=== PATIENT | male | born 1950 | race Asian ===

== ENCOUNTER 2017-10-18 20:20 | Inpatient (IN) ==
[2017-10-18] MEDS ORDERED: Magnesium Sulfate Inj 2 GM in Sodium Chlor 0.9% Inj 96 ML IV.SIG ONE (20:30)
--- NOTE | 2017-10-18 20:40 | ED ---
HPI General Chief Complaint: Shortness of Breath/Dyspnea Stated Complaint: SOB Time Seen by Provider: 10/18/17 20:27 Source: patient and EMS Mode of arrival: EMS History of Present Illness Patient is a 67-year-old male with history of asthma, COPD, atrial fibrillation , hyperlipidemia, TIA 2010, hypertension presents to the ER with complaints of shortness of breath. As per a close friend, patient uses 2L oxygen at all times, he is a smoker with history of COPD. He has been less conversive over the past few days and has been struggling to breath. Patient unable to provide much of an HPI. Patient reports that he is feeling shortness of breath. Denies chest pain. He was found to be with 90% on 2L by EMS, EMS did administer 125mg of solumedrol and did give him a neb treatment prior to arrival to the ER Related Data Home Medications Medication Instructions Recorded Confirmed amiodarone 100 mg PO DAILY 10/19/17 finasteride 5 mg PO DAILY 10/19/17 hydrochlorothiazide 12.5 mg PO QAM 10/19/17 hydrocodone-acetaminophen 1 tab PO Q6H PRN 10/19/17 metoprolol tartrate 50 mg PO BID 10/19/17 mirtazapine 30 mg PO DAILY 10/19/17 montelukast 10 mg PO QPM 10/19/17 temazepam PRN MDD 1 10/19/17 Allergies Allergy/AdvReac Type Severity Reaction Status Date / Time No Known Allergies Allergy Uncoded 03/07/13 14:09 Review of Systems ROS Unobtainable ROS Unobtainable: unobtainable due to mental status PMFSH History History Provided By: Medical Record and Young Adult Librarian / EMT Medical History Medical History COPD (chronic obstructive pulmonary disease) (Acute) Hypertension (Acute) Insomnia (Acute) Social History Social History Substance History: No History of Abuse and Unable to Obtain Second Hand Smoke Exposure: Yes Smoking Status: Smoker, status unknown Tobacco Type: Cigarettes How Often Do You Have a Drink Containing Alcohol: Unable to Obtain Recent Travel in [place] within the Last 8 Weeks: No Recent Out of Country Travel within the Last 8 Weeks: No Exam Narrative Exam Narrative: GENERAL: Moderate to severe distress SKIN: Focused skin assessment warm/dry. HEAD: Atraumatic. Normocephalic. EYES: Pupils equal and round. No scleral icterus. No injection or drainage. ENT: No nasal bleeding or discharge. Mucous membranes pink and moist. NECK: Trachea midline. No JVD. CARDIOVASCULAR: tachycardic. No murmur appreciated. RESPIRATORY: Increased accessory muscle use. Tight breath sounds with scattered wheezing. Breath sounds equal bilaterally. GASTROINTESTINAL: Abdomen soft, non-tender, nondistended. Hepatic and splenic margins not palpable. MUSCULOSKELETAL: No obvious deformities. No clubbing. No cyanosis. No edema. NEUROLOGICAL: Awake and alert to person and place, not time PSYCHIATRIC: Appropriate mood and affect; insight and judgment normal. Procedures EJ/Peripheral Line Neck R: Time Out Performed: No Skin Cleansed in Sterile Fashion: Yes Size (gauge): 20 IV Secured and Dressing Applied: Yes Patient Tolerated Procedure: well and no complications Intubation Time Out Performed: Yes Sedative: etomidate Mg Given: 20 Paralytic: succinylcholine Mg Given: 100 Laryngoscope: Lynne (4) ET Tube Size: 7.5 ET Tube Uncuffed: Yes Tube Secured Depth (cm): 23 Tube Secured Location: teeth Tube Placement Confirmation: visualized tube passing through cords, equal breath sounds bilaterally, no breath sounds over epigastrium and confirmation by capnometry Patient Tolerated Procedure: well Intubation Complications: none Course Initial Documented Vital Signs Temperature 98.1 F 10/18/17 20:29 Pulse Rate 100 H 10/18/17 20:29 Respiratory Rate 22 10/18/17 20:29 Blood Pressure 180/68 H 10/18/17 20:29 Pulse Oximetry 96 10/18/17 20:29 Last Documented Vital Signs Temperature 97.1 F L 10/19/17 20:00 Pulse Rate 81 10/19/17 20:00 Respiratory Rate 16 10/19/17 20:00 Blood Pressure 111/52 L 10/19/17 20:00 Pulse Oximetry 98 10/19/17 20:00 Critical Care Time Critical Care Time: Yes Total Critical Care Time: 60 Attestation: Aggregate critical care time was 60 minutes. Time to perform other separately billable procedures was not included in the critical care time. My time did not include minutes spent treating any other patients simultaneously or on activities that did not directly contribute to the patient's treatment. The services I provided to this patient were to treat and/or prevent clinically significant deterioration that could result in: , decompensation, deterioration I provided critical care services requiring my management, as noted below: Chart data review, documentation time, medication orders and management, vital sign assessments/reviewing monitor data, ordering and reviewing lab tests, ordering and interpreting/reviewing x-rays and diagnostic studies, care of the patient and discussion of the patient with the admitting physicians. Medical Decision Making MDM Narrative Medical decision making narrative: During the course of the patients emergency department visit, the patients history, examination, and differential diagnosis were reviewed with the patient. The patient was placed on a monitor technician with oximetry and frequent blood pressure monitoring. The patient had an IV access obtained and blood work sent for analysis. The patient was initially provided with 125 mg of IV Solu-Medrol as well as a neb treatment by EMS. Upon arrival to the emergency room, 3 DuoNeb's as well as 2 g of magnesium are ordered. Patient was unable to provide any HPI, he appears to be altered. His ABG shows a pH of 7.22, PCO2 is 98. Patient appears to be in hypercapnic respiratory failure. I did attempt to call patient's daughter and kept getting a busy signal, I tried calling patient's home and that line has been disconnected. Patient appears confused and repeats "you are not understanding me." BIPAP was initially placed on patient, but patient kept pulling off the BIPAP and his oxygen sats would drop to the 80's. He would then pull off his blood pressure cuff, I was concerned that patient was uanable to make his own decisions at this time Decision was to emergently intubate him for airway protection trop 0.15 - rectal aspirin was administered although I do believe that this is most likely a secondary spill given his hypoxia and hyercapnia - plan to trend the trops patient will be admitted to the icu Patient was maxed out on propofol - still uncomfortable on the vent and hypotensive with a SBP in the 90's - Propofol will be discontinued and fentyl and versed drip will be ordered Case reviewed with Dr. Shukla who accepts pt to service Medical Screen Exam Complete: Yes Emergency Medical Condition: Yes Differential Diagnosis Differential Diagnosis: copd exacerbation, pneumonia, pneumothorax, acs, arrhythmia Medical Records Medical records reviewed: Yes I reviewed the patient's medical records. Lab Data Lab results reviewed: Yes I reviewed the patient's lab results. Result diagrams: 10/19/17 04:53 10/19/17 15:20 Lab Results 10/18/17 10/18/17 10/18/17 Range/Units 20:50 21:00 21:00 CBC w Diff Auto diff final WBC 8.2 (4.0-11.0) th/mm3 RBC 3.63 L (4.50-5.90) mil/mm3 Hgb 10.1 L (13.0-17.0) gm/dL Hct 31.8 L (39.0-51.0) % MCV 87.8 (80.0-100.0) fL MCH 27.7 (27.0-34.0) pg MCHC 31.6 L (32.0-36.0) % RDW 15.3 (11.6-17.2) % Plt Count 181 (150-450) th/mm3 MPV 7.5 (7.0-11.0) fL Neut % (Auto) 86.5 H (16.0-70.0) % Lymph % (Auto) 6.9 L (9.0-44.0) % [place] % (Auto) 5.0 (0.0-8.0) % Eos % (Auto) 1.2 (0.0-4.0) % Baso % (Auto) 0.4 (0.0-2.0) % Neut # (Auto) 7.1 (1.8-7.7) th/mm3 Lymph # (Auto) 0.6 L (1.0-4.8) th/mm3 [place] # (Auto) 0.4 (0.0-0.9) th/mm3 Eos # (Auto) 0.1 (0.0-0.4) th/mm3 Baso # (Auto) 0.0 (0.0-0.2) th/mm3 WBC Differential . Differential Comment . PT (9.8-11.6) sec INR Ratio APTT (24.3-30.1) sec Puncture Site Right radial Patient Temperature 98.6 O2 Saturation 93 (90-100) % ABG pH 7.22 L* (7.380-7.420) ABG pCO2 98 H* (38-42) mmHg ABG pO2 96 (61-120) mmHg ABG HCO3 39 H (22-26) mmol/L ABG O2 Content 12.7 (12.0-20.0) Vol % ABG Base Excess 11.4 H (-2-2) mmol/L ABG Methemoglobin 1.5 (0-2) % Anthony Test Present Hemoglobin 9.6 L (12.0-16.0) G/DL Carboxyhemoglobin 4.1 H (0-4) % O2 Delivery Device Nasal cannula Liter Flow 2.00 L/M Vent Setting Inspired O2 29 % Critical Value Yes Sodium 135 L (136-145) meq/L Potassium 5.8 H (3.5-5.1) meq/L Chloride 93 L (98-107) meq/L Carbon Dioxide 41.4 H (21.0-32.0) meq/L Anion Gap 1 L (5-15) meq/L BUN 16 (7-18) mg/dL Creatinine 1.10 (0.60-1.30) mg/dL Estimated GFR 66 L (>89) mL/min POC Glucose (68-110) mg/dl Random Glucose 130 H (74-106) mg/dL Lactic Acid (0.4-2.0) mmol/L Calcium 9.1 (8.5-10.1) mg/dL Magnesium 2.0 (1.5-2.5) mg/dL Total Bilirubin 0.9 (0.2-1.0) mg/dL AST 19 (15-37) U/L ALT 21 (12-78) U/L Alkaline Phosphatase 109 (45-117) U/L Total Creatine Kinase 52 (39-308) U/L Troponin I 0.15 H (0.02-0.05) ng/mL Total Protein 7.7 (6.4-8.2) g/dL Albumin 3.6 (3.4-5.0) g/dL Ur Collection Type Urine Color (Yellw/Straw) Urine Clarity (Clear) Urine pH (5.0-8.5) Ur Specific [place] (1.002-1.035) Urine Protein (Neg-Trace) mg/dL Urine Glucose (UA) (Negative) mg/dL Urine Ketones (Negative) mg/dL Urine Occult Blood (Negative) Urine Nitrate (Negative) Urine Bilirubin (Negative) Urine Urobilinogen (Less than 2) mg/dL Ur Leukocyte Esterase (Negative) Urine RBC (0-3) /hpf Urine WBC (0-5) /hpf Hyaline Casts (0-3) /lpf Micro UA Comment Ur Microscopic Review Urine Culture Comments Nasal Screen MRSA (PCR) (Negative) 10/18/17 10/18/17 10/18/17 Range/Units 21:00 21:10 22:45 CBC w Diff WBC (4.0-11.0) th/mm3 RBC (4.50-5.90) mil/mm3 Hgb (13.0-17.0) gm/dL Hct (39.0-51.0) % MCV (80.0-100.0) fL MCH (27.0-34.0) pg MCHC (32.0-36.0) % RDW (11.6-17.2) % Plt Count (150-450) th/mm3 MPV (7.0-11.0) fL Neut % (Auto) (16.0-70.0) % Lymph % (Auto) (9.0-44.0) % [place] % (Auto) (0.0-8.0) % Eos % (Auto) (0.0-4.0) % Baso % (Auto) (0.0-2.0) % Neut # (Auto) (1.8-7.7) th/mm3 Lymph # (Auto) (1.0-4.8) th/mm3 [place] # (Auto) (0.0-0.9) th/mm3 Eos # (Auto) (0.0-0.4) th/mm3 Baso # (Auto) (0.0-0.2) th/mm3 WBC Differential Differential Comment PT 10.0 (9.8-11.6) sec INR 1.0 Ratio APTT 26.9 (24.3-30.1) sec Puncture Site Right brachial Patient Temperature 98.6 O2 Saturation 96 (90-100) % ABG pH 7.30 L (7.380-7.420) ABG pCO2 72 H* (38-42) mmHg ABG pO2 460 H (61-120) mmHg ABG HCO3 34 H (22-26) mmol/L ABG O2 Content 13.0 (12.0-20.0) Vol % ABG Base Excess 8.0 H (-2-2) mmol/L ABG Methemoglobin 0.9 (0-2) % Anthony Test Hemoglobin 8.7 L (12.0-16.0) G/DL Carboxyhemoglobin 3.3 (0-4) % O2 Delivery Device Ventilator Liter Flow L/M Vent Setting Prvc/ac Inspired O2 100 % Critical Value Yes Sodium (136-145) meq/L Potassium (3.5-5.1) meq/L Chloride (98-107) meq/L Carbon Dioxide (21.0-32.0) meq/L Anion Gap (5-15) meq/L BUN (7-18) mg/dL Creatinine (0.60-1.30) mg/dL Estimated GFR (>89) mL/min POC Glucose (68-110) mg/dl Random Glucose (74-106) mg/dL Lactic Acid 1.1 (0.4-2.0) mmol/L Calcium (8.5-10.1) mg/dL Magnesium (1.5-2.5) mg/dL Total Bilirubin (0.2-1.0) mg/dL AST (15-37) U/L ALT (12-78) U/L Alkaline Phosphatase (45-117) U/L Total Creatine Kinase (39-308) U/L Troponin I (0.02-0.05) ng/mL Total Protein (6.4-8.2) g/dL Albumin (3.4-5.0) g/dL Ur Collection Type Urine Color (Yellw/Straw) Urine Clarity (Clear) Urine pH (5.0-8.5) Ur Specific [place] (1.002-1.035) Urine Protein (Neg-Trace) mg/dL Urine Glucose (UA) (Negative) mg/dL Urine Ketones (Negative) mg/dL Urine Occult Blood (Negative) Urine Nitrate (Negative) Urine Bilirubin (Negative) Urine Urobilinogen (Less than 2) mg/dL Ur Leukocyte Esterase (Negative) Urine RBC (0-3) /hpf Urine WBC (0-5) /hpf Hyaline Casts (0-3) /lpf Micro UA Comment Ur Microscopic Review Urine Culture Comments Nasal Screen MRSA (PCR) (Negative) 10/19/17 10/19/17 10/19/17 Range/Units 02:00 03:30 04:53 CBC w Diff Auto diff final WBC 4.9 (4.0-11.0) th/mm3 RBC 3.01 L (4.50-5.90) mil/mm3 Hgb 8.4 L (13.0-17.0) gm/dL Hct 26.0 L (39.0-51.0) % MCV 86.4 (80.0-100.0) fL MCH 28.0 (27.0-34.0) pg MCHC 32.4 (32.0-36.0) % RDW 14.9 (11.6-17.2) % Plt Count 179 (150-450) th/mm3 MPV 7.1 (7.0-11.0) fL Neut % (Auto) 92.6 H (16.0-70.0) % Lymph % (Auto) 5.0 L (9.0-44.0) % [place] % (Auto) 2.2 (0.0-8.0) % Eos % (Auto) 0.0 (0.0-4.0) % Baso % (Auto) 0.2 (0.0-2.0) % Neut # (Auto) 4.6 (1.8-7.7) th/mm3 Lymph # (Auto) 0.2 L (1.0-4.8) th/mm3 [place] # (Auto) 0.1 (0.0-0.9) th/mm3 Eos # (Auto) 0.0 (0.0-0.4) th/mm3 Baso # (Auto) 0.0 (0.0-0.2) th/mm3 WBC Differential . Differential Comment . PT (9.8-11.6) sec INR Ratio APTT (24.3-30.1) sec Puncture Site Patient Temperature O2 Saturation (90-100) % ABG pH (7.380-7.420) ABG pCO2 (38-42) mmHg ABG pO2 (61-120) mmHg ABG HCO3 (22-26) mmol/L ABG O2 Content (12.0-20.0) Vol % ABG Base Excess (-2-2) mmol/L ABG Methemoglobin (0-2) % Anthony Test Hemoglobin (12.0-16.0) G/DL Carboxyhemoglobin (0-4) % O2 Delivery Device Liter Flow L/M Vent Setting Inspired O2 % Critical Value Sodium (136-145) meq/L Potassium (3.5-5.1) meq/L Chloride (98-107) meq/L Carbon Dioxide (21.0-32.0) meq/L Anion Gap (5-15) meq/L BUN (7-18) mg/dL Creatinine (0.60-1.30) mg/dL Estimated GFR (>89) mL/min POC Glucose (68-110) mg/dl Random Glucose (74-106) mg/dL Lactic Acid (0.4-2.0) mmol/L Calcium (8.5-10.1) mg/dL Magnesium (1.5-2.5) mg/dL Total Bilirubin (0.2-1.0) mg/dL AST (15-37) U/L ALT (12-78) U/L Alkaline Phosphatase (45-117) U/L Total Creatine Kinase (39-308) U/L Troponin I 0.28 H (0.02-0.05) ng/mL Total Protein (6.4-8.2) g/dL Albumin (3.4-5.0) g/dL Ur Collection Type Urine Color (Yellw/Straw) Urine Clarity (Clear) Urine pH (5.0-8.5) Ur Specific [place] (1.002-1.035) Urine Protein (Neg-Trace) mg/dL Urine Glucose (UA) (Negative) mg/dL Urine Ketones (Negative) mg/dL Urine Occult Blood (Negative) Urine Nitrate (Negative) Urine Bilirubin (Negative) Urine Urobilinogen (Less than 2) mg/dL Ur Leukocyte Esterase (Negative) Urine RBC (0-3) /hpf Urine WBC (0-5) /hpf Hyaline Casts (0-3) /lpf Micro UA Comment Ur Microscopic Review Urine Culture Comments Nasal Screen MRSA (PCR) Not detected (Negative) 10/19/17 10/19/17 10/19/17 Range/Units 04:53 08:05 08:33 CBC w Diff WBC (4.0-11.0) th/mm3 RBC (4.50-5.90) mil/mm3 Hgb (13.0-17.0) gm/dL Hct (39.0-51.0) % MCV (80.0-100.0) fL MCH (27.0-34.0) pg MCHC (32.0-36.0) % RDW (11.6-17.2) % Plt Count (150-450) th/mm3 MPV (7.0-11.0) fL Neut % (Auto) (16.0-70.0) % Lymph % (Auto) (9.0-44.0) % [place] % (Auto) (0.0-8.0) % Eos % (Auto) (0.0-4.0) % Baso % (Auto) (0.0-2.0) % Neut # (Auto) (1.8-7.7) th/mm3 Lymph # (Auto) (1.0-4.8) th/mm3 [place] # (Auto) (0.0-0.9) th/mm3 Eos # (Auto) (0.0-0.4) th/mm3 Baso # (Auto) (0.0-0.2) th/mm3 WBC Differential Differential Comment PT (9.8-11.6) sec INR Ratio APTT (24.3-30.1) sec Puncture Site Patient Temperature O2 Saturation (90-100) % ABG pH (7.380-7.420) ABG pCO2 (38-42) mmHg ABG pO2 (61-120) mmHg ABG HCO3 (22-26) mmol/L ABG O2 Content (12.0-20.0) Vol % ABG Base Excess (-2-2) mmol/L ABG Methemoglobin (0-2) % Anthony Test Hemoglobin (12.0-16.0) G/DL Carboxyhemoglobin (0-4) % O2 Delivery Device Liter Flow L/M Vent Setting Inspired O2 % Critical Value Sodium 135 L (136-145) meq/L Potassium 4.7 D (3.5-5.1) meq/L Chloride 93 L (98-107) meq/L Carbon Dioxide 34.1 H (21.0-32.0) meq/L Anion Gap 8 (5-15) meq/L BUN 26 H (7-18) mg/dL Creatinine 1.90 H (0.60-1.30) mg/dL Estimated GFR 35 L (>89) mL/min POC Glucose (68-110) mg/dl Random Glucose 296 H D (74-106) mg/dL Lactic Acid (0.4-2.0) mmol/L Calcium 8.8 (8.5-10.1) mg/dL Magnesium (1.5-2.5) mg/dL Total Bilirubin 0.6 (0.2-1.0) mg/dL AST 17 (15-37) U/L ALT 16 (12-78) U/L Alkaline Phosphatase 88 (45-117) U/L Total Creatine Kinase (39-308) U/L Troponin I 0.30 H (0.02-0.05) ng/mL Total Protein 6.6 D (6.4-8.2) g/dL Albumin 2.9 L D (3.4-5.0) g/dL Ur Collection Type Cath Urine Color Yellow (Yellw/Straw) Urine Clarity Clear (Clear) Urine pH 5.0 (5.0-8.5) Ur Specific [place] Greater/equal 1.030 (1.002-1.035) Urine Protein Trace (Neg-Trace) mg/dL Urine Glucose (UA) Negative (Negative) mg/dL Urine Ketones Trace (Negative) mg/dL Urine Occult Blood Negative (Negative) Urine Nitrate Negative (Negative) Urine Bilirubin Negative (Negative) Urine Urobilinogen 0.2 (Less than 2) mg/dL Ur Leukocyte Esterase Small H (Negative) Urine RBC 0-3 (0-3) /hpf Urine WBC 0-5 (0-5) /hpf Hyaline Casts 4-10 H (0-3) /lpf Micro UA Comment Cath-culture not ind Ur Microscopic Review Microscopic reviewed Urine Culture Comments Cath-cult not ind Nasal Screen MRSA (PCR) (Negative) 10/19/17 10/19/17 10/19/17 Range/Units 11:57 15:20 15:20 CBC w Diff WBC (4.0-11.0) th/mm3 RBC (4.50-5.90) mil/mm3 Hgb (13.0-17.0) gm/dL Hct (39.0-51.0) % MCV (80.0-100.0) fL MCH (27.0-34.0) pg MCHC (32.0-36.0) % RDW (11.6-17.2) % Plt Count (150-450) th/mm3 MPV (7.0-11.0) fL Neut % (Auto) (16.0-70.0) % Lymph % (Auto) (9.0-44.0) % [place] % (Auto) (0.0-8.0) % Eos % (Auto) (0.0-4.0) % Baso % (Auto) (0.0-2.0) % Neut # (Auto) (1.8-7.7) th/mm3 Lymph # (Auto) (1.0-4.8) th/mm3 [place] # (Auto) (0.0-0.9) th/mm3 Eos # (Auto) (0.0-0.4) th/mm3 Baso # (Auto) (0.0-0.2) th/mm3 WBC Differential Differential Comment PT (9.8-11.6) sec INR Ratio APTT (24.3-30.1) sec Puncture Site Patient Temperature O2 Saturation (90-100) % ABG pH (7.380-7.420) ABG pCO2 (38-42) mmHg ABG pO2 (61-120) mmHg ABG HCO3 (22-26) mmol/L ABG O2 Content (12.0-20.0) Vol % ABG Base Excess (-2-2) mmol/L ABG Methemoglobin (0-2) % Anthony Test Hemoglobin (12.0-16.0) G/DL Carboxyhemoglobin (0-4) % O2 Delivery Device Liter Flow L/M Vent Setting Inspired O2 % Critical Value Sodium 135 L (136-145) meq/L Potassium 4.3 (3.5-5.1) meq/L Chloride 97 L (98-107) meq/L Carbon Dioxide 34.1 H (21.0-32.0) meq/L Anion Gap 4 L (5-15) meq/L BUN 29 H (7-18) mg/dL Creatinine 1.50 H (0.60-1.30) mg/dL Estimated GFR 46 L (>89) mL/min POC Glucose 358 H (68-110) mg/dl Random Glucose 330 H (74-106) mg/dL Lactic Acid 2.3 H (0.4-2.0) mmol/L Calcium 8.5 (8.5-10.1) mg/dL Magnesium (1.5-2.5) mg/dL Total Bilirubin 0.3 (0.2-1.0) mg/dL AST 18 (15-37) U/L ALT 15 (12-78) U/L Alkaline Phosphatase 85 (45-117) U/L Total Creatine Kinase (39-308) U/L Troponin I (0.02-0.05) ng/mL Total Protein 6.5 (6.4-8.2) g/dL Albumin 2.9 L (3.4-5.0) g/dL Ur Collection Type Urine Color (Yellw/Straw) Urine Clarity (Clear) Urine pH (5.0-8.5) Ur Specific [place] (1.002-1.035) Urine Protein (Neg-Trace) mg/dL Urine Glucose (UA) (Negative) mg/dL Urine Ketones (Negative) mg/dL Urine Occult Blood (Negative) Urine Nitrate (Negative) Urine Bilirubin (Negative) Urine Urobilinogen (Less than 2) mg/dL Ur Leukocyte Esterase (Negative) Urine RBC (0-3) /hpf Urine WBC (0-5) /hpf Hyaline Casts (0-3) /lpf Micro UA Comment Ur Microscopic Review Urine Culture Comments Nasal Screen MRSA (PCR) (Negative) 10/19/17 10/19/17 Range/Units 16:11 19:15 CBC w Diff WBC (4.0-11.0) th/mm3 RBC (4.50-5.90) mil/mm3 Hgb (13.0-17.0) gm/dL Hct (39.0-51.0) % MCV (80.0-100.0) fL MCH (27.0-34.0) pg MCHC (32.0-36.0) % RDW (11.6-17.2) % Plt Count (150-450) th/mm3 MPV (7.0-11.0) fL Neut % (Auto) (16.0-70.0) % Lymph % (Auto) (9.0-44.0) % [place] % (Auto) (0.0-8.0) % Eos % (Auto) (0.0-4.0) % Baso % (Auto) (0.0-2.0) % Neut # (Auto) (1.8-7.7) th/mm3 Lymph # (Auto) (1.0-4.8) th/mm3 [place] # (Auto) (0.0-0.9) th/mm3 Eos # (Auto) (0.0-0.4) th/mm3 Baso # (Auto) (0.0-0.2) th/mm3 WBC Differential Differential Comment PT (9.8-11.6) sec INR Ratio APTT (24.3-30.1) sec Puncture Site Patient Temperature O2 Saturation (90-100) % ABG pH (7.380-7.420) ABG pCO2 (38-42) mmHg ABG pO2 (61-120) mmHg ABG HCO3 (22-26) mmol/L ABG O2 Content (12.0-20.0) Vol % ABG Base Excess (-2-2) mmol/L ABG Methemoglobin (0-2) % Anthony Test Hemoglobin (12.0-16.0) G/DL Carboxyhemoglobin (0-4) % O2 Delivery Device Liter Flow L/M Vent Setting Inspired O2 % Critical Value Sodium (136-145) meq/L Potassium (3.5-5.1) meq/L Chloride (98-107) meq/L Carbon Dioxide (21.0-32.0) meq/L Anion Gap (5-15) meq/L BUN (7-18) mg/dL Creatinine (0.60-1.30) mg/dL Estimated GFR (>89) mL/min POC Glucose 352 H 242 H (68-110) mg/dl Random Glucose (74-106) mg/dL Lactic Acid (0.4-2.0) mmol/L Calcium (8.5-10.1) mg/dL Magnesium (1.5-2.5) mg/dL Total Bilirubin (0.2-1.0) mg/dL AST (15-37) U/L ALT (12-78) U/L Alkaline Phosphatase (45-117) U/L Total Creatine Kinase (39-308) U/L Troponin I (0.02-0.05) ng/mL Total Protein (6.4-8.2) g/dL Albumin (3.4-5.0) g/dL Ur Collection Type Urine Color (Yellw/Straw) Urine Clarity (Clear) Urine pH (5.0-8.5) Ur Specific [place] (1.002-1.035) Urine Protein (Neg-Trace) mg/dL Urine Glucose (UA) (Negative) mg/dL Urine Ketones (Negative) mg/dL Urine Occult Blood (Negative) Urine Nitrate (Negative) Urine Bilirubin (Negative) Urine Urobilinogen (Less than 2) mg/dL Ur Leukocyte Esterase (Negative) Urine RBC (0-3) /hpf Urine WBC (0-5) /hpf Hyaline Casts (0-3) /lpf Micro UA Comment Ur Microscopic Review Urine Culture Comments Nasal Screen MRSA (PCR) (Negative) Imaging Data Attestation: I personally reviewed and interpreted this imaging study as follows : Radiologist's impression: Chest X-Ray 10/18/17 20:27 CONCLUSION: 1. Advanced COPD. 2. No evidence of acute airspace disease or significant congestion. Chest X-Ray 10/18/17 21:47 CONCLUSION: Status post intubation with tip of the endotracheal tube at the thoracic inlet. Gastric tube position of nasogastric tube. Hyperinflated lungs with diffuse interstitial vascular prominence. Chest X-Ray 10/19/17 02:57 CONCLUSION: Modest worsening left base consolidation. ECG Data EKG Prior to Arrival: No Attestation: I personally reviewed and interpreted this ECG as follows: Interpretation: EKG at 2025: Sinus tachycardia at 105bpm, there are no st or t wave changes Discharge Plan Discharge Disposition Patient Disposition: 30 Still Patient Discharge Details Diagnosis: Acute hypercapnic respiratory failure Physicians Team ED Provider: Esha Vines Primary Care Provider: UNKNOWN, Attending Provider: Alyssa Shukla Other Providers: July Leary Status ED Status: Left Department Discharge Information Discharge Date/Time: 10/19/17 00:05
[2017-10-18 21:06] LABS: ABG Base Excess 11.4 mmol/L (-2-2); ABG PCO2 98 mmHg (38-42); ABG PO2 96 mmHg (61-120)
--- NOTE | 2017-10-18 21:09 | XR ---
EXAM DATE: 10/18/2017 9:02 PM EDT AGE/SEX: 67 years / Male INDICATIONS: Shortness of breath. CLINICAL DATA: This is the patient's initial encounter. Patient reports that signs and symptoms have been present for 1 day and indicates a pain score of Nonresponsive. MEDICAL/SURGICAL HISTORY: Non-responsive. Non-responsive. COMPARISON: No prior exams available for comparison. FINDINGS: Lungs are hyperinflated. Diffuse interstitial prominence is identified. There is no evidence of conso lidating airspace disease or mass densities. Heart is within normal limits in size. CONCLUSION: 1. Advanced COPD. 2. No evidence of acute airspace disease or significant congestion. Electronically signed by: Austen Alfonso MD 10/18/2017 9:08 PM EDT
[2017-10-18 21:25] LABS: Baso % (Auto) 0.4 % (0.0-2.0); Eos # (Auto) 0.1 th/mm3 (0.0-0.4); Eos % (Auto) 1.2 % (0.0-4.0); Hematocrit 31.8 % (39.0-51.0); Hemoglobin 10.1 gm/dL (13.0-17.0); Lymph # (Auto) 0.6 th/mm3 (1.0-4.8); Lymph % (Auto) 6.9 % (9.0-44.0); Mean Corpuscular HGB Conc 31.6 % (32.0-36.0); Mean Corpuscular Hemoglobin 27.7 pg (27.0-34.0); Mean Corpuscular Volume 87.8 fL (80.0-100.0); Mean Platelet Volume 7.5 fL (7.0-11.0); Mono # (Auto) 0.4 th/mm3 (0.0-0.9); Neut # (Auto) 7.1 th/mm3 (1.8-7.7); Neut % (Auto) 86.5 % (16.0-70.0); Platelet Count 181 th/mm3 (150-450); Red Blood Count 3.63 mil/mm3 (4.50-5.90); Red Cell Distribution Width 15.3 % (11.6-17.2); White Blood Count 8.2 th/mm3 (4.0-11.0)
[2017-10-18] MEDS ORDERED: Succinylcholine Inj 200 MG/10 ML Vial ONE (21:29)
[2017-10-18] MEDS ORDERED: Etomidate Inj 20 MG/10 ML Ampul IV.PUSH ONE ×2 (21:29→21:33)
[2017-10-18] MEDS ORDERED: Propofol 1000 mg/100 ml Inj 1,000 MG/100 ML BOTTLE IV.CONT PRN (21:33)
[2017-10-18] MEDS ORDERED: Succinylcholine Inj 200 MG/10 ML Vial IV.PUSH ONE (21:33)
[2017-10-18 21:35] LABS: Chloride 93 meq/L (98-107); Potassium 5.8 meq/L (3.5-5.1); Sodium 135 meq/L (136-145)
--- NOTE | 2017-10-18 21:36 | ECG ---
Date Performed: 10/18/2017 Time Performed: 20:26:52 PTAGE: 67 years EKG: SINUS TACHYCARDIA ABNORMAL RHYTHM ECG Since the PREVIOUS TRACING , no significant change noted DOCTOR: Des Pérez Interpretating Date/Time 10/18/2017 21:34:24
[2017-10-18 21:38] LABS: Calcium 9.1 mg/dL (8.5-10.1)
[2017-10-18 21:39] LABS: Activated Partial Thrombo Time 26.9 sec (24.3-30.1); Albumin 3.6 g/dL (3.4-5.0); Anion Gap 1 meq/L (5-15); Blood Urea Nitrogen 16 mg/dL (7-18); Carbon Dioxide 41.4 meq/L (21.0-32.0); Glucose,Random 130 mg/dL (74-106)
[2017-10-18 21:42] LABS: Alanine Aminotransferase 21 U/L (12-78); Aspartate Aminotransferase 19 U/L (15-37); Glomerular Filtration Rate 66 mL/min (>89)
[2017-10-18 21:44] LABS: Total Protein 7.7 g/dL (6.4-8.2)
[2017-10-18 21:45] LABS: Alkaline Phosphatase 109 U/L (45-117)
[2017-10-18 21:47] LABS: Troponin I 0.15 ng/mL (0.02-0.05)
[2017-10-18 21:51] LABS: Creatine Kinase 52 U/L (39-308)
[2017-10-18] MEDS ORDERED: Azithromycin Inj 500 MG in Sodium Chlor 0.9% Inj 250 ML IV.SIG ONE (21:55)
[2017-10-18] MEDS ORDERED: Aspirin 300 MG Supp RECTAL ONE (21:58)
--- NOTE | 2017-10-18 22:17 | XR ---
EXAM DATE: 10/18/2017 10:14 PM EDT AGE/SEX: 67 years / Male INDICATIONS: Post intubation. CLINICAL DATA: This is the patient's subsequent encounter. Patient reports that signs and symptoms h ave been present for 1 day and indicates a pain score of Nonresponsive. MEDICAL/SURGICAL HISTORY: Non-responsive. Non-responsive. COMPARISON: [facility], CHEST 1V SINGLE AP, 10/18/2017. . FINDINGS: Nasogastric and endotracheal tubes have been placed. Tip of the endotracheal tube is at the thoracic inlet. Nasogastric tube extends into the stomach. Lungs continue to demonstrate diffuse interstitial vascular prominence and hyperinflation. Prominent bullous is identified in the right apex. Heart and mediastinal structures are stable. CONCLUSION: Status post intubation with tip of the endotracheal tube at the thoracic inlet. Gastric tube position of nasogastric tube. Hyperinflated lungs with diffuse interstitial vascular prominence. Electronically signed by: Austen Alfonso MD 10/18/2017 10:16 PM EDT
[2017-10-18] MEDS ORDERED: Sodium Polystyrene Sulfonate/Sorbitol Liq 15 GM/60 ML UDC PO ONE (22:36)
[2017-10-18] MEDS ORDERED: fentaNYL Citrate Inj 100 MCG/2 ML Ampul IV PUSH PRN (22:38)
[2017-10-18] MEDS ORDERED: Bisacodyl 10 MG Supp RECTAL PRN (22:38)
[2017-10-18] MEDS ORDERED: Acetaminophen 325 MG Tablet PO PRN (22:38)
[2017-10-18] MEDS ORDERED: Enoxaparin Inj 40 MG/0.4 ML Syringe SQ SCH ×2 (22:45→23:00)
[2017-10-18] MEDS ORDERED: fentaNYL Citrate Inj 100 MCG/2 ML Ampul IV.PUSH ONE (22:47)
[2017-10-18] MEDS ORDERED: MethylPREDNISolone Sod Succinate Inj 125 MG/2 ML Vial IV.PUSH SCH (23:00)
[2017-10-18 23:02] LABS: ABG PCO2 72 mmHg (38-42); ABG PO2 460 mmHg (61-120)
[2017-10-18] MEDS: fentaNYL 10 mcg/mL Premix Drip 2,500 MCG/250 ML BAG IV.SIG PRN (23:48)
[2017-10-18] MEDS: Midazolam 50 MG/50 ML Inj 50 MG/50 ML BAG IV.CONT PRN (23:49)
[2017-10-19] MEDS ORDERED: Sodium Polystyrene Sulfonate/Sorbitol Liq 15 GM/60 ML UDC PO ONE (03:00)
[2017-10-19] MEDS ORDERED: Azithromycin Inj 500 MG in Sodium Chlor 0.9% Inj 250 ML IV.SIG ONE (03:00)
[2017-10-19] MEDS: KCL 20 mEq/D5W/NaCl 0.45% Inj 1,000 ML IV.CONT SCH ×3 (03:09→15:11)
[2017-10-19] MEDS: Mag Sulf 1 gm/100 ml Premix 100 ML IV.SIG SCH ×3 (03:10→03:56)
[2017-10-19] MEDS: MethylPREDNISolone Sod Succinate Inj 125 MG/2 ML Vial IV.PUSH SCH ×4 (03:58→20:39)
--- NOTE | 2017-10-19 04:07 | XR ---
EXAM DATE: 10/19/2017 4:02 AM EDT AGE/SEX: 67 years / Male INDICATIONS: Shortness of breath. CLINICAL DATA: This is the patient's subsequent encounter. Patient reports that signs and symptoms h ave been present for 1 day and indicates a pain score of Nonresponsive. MEDICAL/SURGICAL HISTORY: Non-responsive. Non-responsive. COMPARISON: . FINDINGS: Mild left base infiltrate, worse. No large effusions seen. No pneumothorax. Heart size stable, within normal limits. Patient remains intubated endotracheal tube tip is approximately 4 cm above the mika. Nasogastric t ube courses into the stomach. CONCLUSION: Modest worsening left base consolidation. Electronically signed by: Cruzito Mejia MD 10/19/2017 4:05 AM EDT
[2017-10-19 05:05] LABS: Baso % (Auto) 0.2 % (0.0-2.0); Hemoglobin 8.4 gm/dL (13.0-17.0); Lymph # (Auto) 0.2 th/mm3 (1.0-4.8); Mean Corpuscular HGB Conc 32.4 % (32.0-36.0); Mean Corpuscular Volume 86.4 fL (80.0-100.0); Mean Platelet Volume 7.1 fL (7.0-11.0); Mono # (Auto) 0.1 th/mm3 (0.0-0.9); Mono % (Auto) 2.2 % (0.0-8.0); Neut # (Auto) 4.6 th/mm3 (1.8-7.7); Neut % (Auto) 92.6 % (16.0-70.0); Platelet Count 179 th/mm3 (150-450); Red Blood Count 3.01 mil/mm3 (4.50-5.90); Red Cell Distribution Width 14.9 % (11.6-17.2); White Blood Count 4.9 th/mm3 (4.0-11.0)
[2017-10-19 05:19] LABS: Albumin 2.9 g/dL (3.4-5.0); Anion Gap 8 meq/L (5-15); Blood Urea Nitrogen 26 mg/dL (7-18); Calcium 8.8 mg/dL (8.5-10.1); Carbon Dioxide 34.1 meq/L (21.0-32.0); Chloride 93 meq/L (98-107); Glucose,Random 296 mg/dL (74-106); Potassium 4.7 meq/L (3.5-5.1); Sodium 135 meq/L (136-145)
[2017-10-19] MEDS: Midazolam 50 MG/50 ML Inj 50 MG/50 ML BAG IV.CONT PRN (05:25)
[2017-10-19] MEDS: Enoxaparin Inj 40 MG/0.4 ML Syringe SQ SCH (05:26)
[2017-10-19 05:27] LABS: Alanine Aminotransferase 16 U/L (12-78); Alkaline Phosphatase 88 U/L (45-117); Aspartate Aminotransferase 17 U/L (15-37); Glomerular Filtration Rate 35 mL/min (>89); Total Protein 6.6 g/dL (6.4-8.2)
--- NOTE | 2017-10-19 06:40 | P.HPCC ---
History of Present Illness Primary Care Physician: UNKNOWN Chief Complaint: Acute shortness of breath History of Present Illness: Patient is a 67-year-old Citizen Of [place] male with history of asthma, COPD, atrial fibrillation, hyperlipidemia, TIA 2011, hypertension who presented to the [place] emergency department with complaints of shortness of breath. He has COPD , and uses 2L oxygen at home. Increasing complaints of shortness of breath over the last few days, in the ED he was severely short of breath and unable to provide any significant history. EMS administered 125mg of solumedrol IV and gave neb treatment prior to arrival to the ER. ER workup showed ABG with pH 7.22 PCO2 98 and PO2 96 on 2 L nasal cannula. Chest x-ray showed left lower lobe pneumonia. Patient was emergently intubated due to severe shortness of breath hypercapnic respiratory failure, I see him still severely short of breath after 3 DuoNeb breathing treatments and IV Solu-Medrol.. Started on scheduled IV Solu-Medrol and antibiotics with Rocephin and azithromycin. I evaluated the patient in the [place] emergency department. He is intubated sedated. He is hypotensive with a map 58-60, urine output 150 mL over the last 5 hours. Creatinine has increased from 1.1-1.9. I have ordered 2 L normal saline bolus. Oxygenation and hypercapnia has improved post intubation, but patient remains critically ill - Diagnosis (1) Left lower lobe pneumonia (2) Acute exacerbation of chronic obstructive pulmonary disease (COPD) (3) Acute kidney injury (4) Hypotension (5) Acute hypercapnic respiratory failure Inpatient Certification: I certify that the inpatient services were ordered in accordance with Medicare regulations governing the order. This includes certification that hospital inpatient services are reasonable and necessary and in the case of services not specified as inpatient-only under 42 CFR 419.22(n), that they are appropriately provided as inpatient services in accordance to with the 2-midnight benchmark under 43 CFR 412.3(e) Estimated Total Length of Stay (Days): 5 Plans for Post Hospital Care: Not yet determined Review of Systems unobtainable due to endotracheal tube PMFSH - History History Provided By: Friend, Medical Record - Medical / Surgical Hx Neg / Unobtainable Surgical History: Unable to Obtain - Medical History Medical History: Medical History (Last Reviewed 10/19/17 @ 06:34 by Niki East MD) COPD (chronic obstructive pulmonary disease) Hypertension Insomnia - Tobacco History Second Hand Smoke Exposure: Yes Tobacco Use In Past 30 Days: Yes Smoking Status: Smoker, status unknown Tobacco Type: Cigarettes - Alcohol History How Often Do You Have a Drink Containing Alcohol: Unable to Obtain - Substance Use History Substance History: No History of Abuse, Unable to Obtain - Travel History Recent Travel in the [place] Within the Last 8 Weeks: No Recent Travel Out of the Country Within the Last 8 Weeks: No - Immunization History Tetanus Immunization: Never Vaccinated Hx Influenza Vaccine This Season: No Medications and Allergies Active Medications: Active Medications Acetaminophen (Tylenol) 650 mg PO Q6H PRN PRN Reason: PAIN 1-10 AND/OR FEVER >101F Hydrocodone Bitart/Acetaminophen (Winger 5/325) 1 tab PO Q4H PRN PRN Reason: PAIN SCALE 1 TO 5 Al Hydroxide/Mg Hydroxide (Milk Of Magnmeliza Liq) 30 ml PO Q12H PRN PRN Reason: Mild Constipation Albuterol (Albuterol Neb (Prn)) 2.5 mg NEB Q2HR NEB PRN PRN Reason: SHORTNESS OF BREATH/WHEEZING Albuterol (Duoneb Neb (Sharifa)) 1 ampul NEB Q4HR NEB SHARIFA Last Admin: 10/19/17 03:42 Dose: 1 ampul Amiodarone HCl (Cordarone) 100 mg PO DAILY [facility] Bisacodyl (Dulcolax Supp) 10 mg RECTAL DAILY PRN PRN Reason: SEVERE CONSITIPATION Enoxaparin Sodium (Lovenox Inj) 40 mg SQ Q24H [facility] Last Admin: 10/19/17 05:26 Dose: 40 mg Famotidine (Pepcid) 20 mg NG/OG BID [facility] Fentanyl Citrate (Fentanyl Inj) 50 mcg IV PUSH Q1H PRN PRN Reason: Pain scale 6-10, &/or sedation Propofol (Diprivan 1000 Mg/100 Ml Inj) 1,000 mg in 100 mls @ 2.041 mls/hr IV.CONT TITRATE PRN; Protocol PRN Reason: Per Protocol Last Titration: 10/19/17 01:16 Dose: 40 mcg/kg/min, 16.33 mls/hr Fentanyl (Fentanyl 10 Mcg/Ml Premix Drip) 2,500 mcg in 250 mls @ 5 mls/hr IV.SIG TITRATE PRN; Protocol PRN Reason: Per Protocol Last Titration: 10/19/17 00:05 Dose: 50 mcg/hr, 5 mls/hr Midazolam HCl (Versed Inj) 50 mg in 50 mls @ 2 mls/hr IV.CONT TITRATE PRN; Protocol PRN Reason: Per Protocol Last Admin: 10/19/17 05:25 Dose: 2 mg/hr, 2 mls/hr Potassium Chloride/Dextrose/Sod Cl (D5w/1/2ns + Kcl 20 Meq Inj) 1,000 mls @ 100 mls/hr IV.CONT .Q10H [facility] Last Admin: 10/19/17 03:09 Dose: 100 mls/hr Sodium Chloride (Ns Inj) 1,000 mls @ 0 mls/hr IV.SIG BOLUS [facility] Azithromycin 500 mg/ Sodium (Chloride) 250 mls @ 250 mls/hr IV.SIG Q24H [facility] Ceftriaxone Sodium 1,000 mg/ (Sodium Chloride) 100 mls @ 200 mls/hr IV.SIG Q24H [facility] Lactulose (Lactulose Liq) 30 ml PO DAILY PRN PRN Reason: SEVERE CONSITIPATION Methylprednisolone Sodium Succinate (Solumedrol Inj) 60 mg IV.PUSH Q6H [facility] Last Admin: 10/19/17 03:58 Dose: 60 mg Midazolam HCl (Versed Inj) 2 mg IV.PUSH Q6H PRN PRN Reason: sedation Montelukast Sodium (Singulair) 10 mg PO QPM [facility] Senna/Docusate Sodium (Romina-Colace) 1 tab PO BID [facility] Sennosides (Senokot) 17.2 mg PO Q12H PRN PRN Reason: Moderate Constipation Sodium Chloride (Ns Flush) 2 ml IV.FLUSH BID [facility] Sodium Chloride (Ns Flush) 2 ml IV.FLUSH PRN PRN PRN Reason: FLUSH AFTER USING IV ACCESS Allergies Allergy/AdvReac Type Severity Reaction Status Date / Time No Known Allergies Allergy Uncoded 03/07/13 14:09 Home Medications Medication Instructions Recorded Confirmed Type amiodarone 100 mg PO DAILY 10/19/17 History finasteride 5 mg PO DAILY 10/19/17 History hydrochlorothiazide 12.5 mg PO QAM 10/19/17 History hydrocodone-acetaminophen 1 tab PO Q6H PRN 10/19/17 History metoprolol tartrate 50 mg PO BID 10/19/17 History mirtazapine 30 mg PO DAILY 10/19/17 History montelukast 10 mg PO QPM 10/19/17 History temazepam PRN MDD 1 10/19/17 History Results - Labs CBC & Chem 7: 10/19/17 04:53 10/19/17 04:53 Labs: Short CBC 10/18/17 10/19/17 Range/Units 21:00 04:53 WBC 8.2 4.9 (4.0-11.0) th/mm3 Hgb 10.1 L 8.4 L (13.0-17.0) gm/dL Hct 31.8 L 26.0 L (39.0-51.0) % Plt Count 181 179 (150-450) th/mm3 BMP 10/18/17 10/19/17 21:00 04:53 Sodium 135 L 135 L Potassium 5.8 H 4.7 D Chloride 93 L 93 L Carbon Dioxide 41.4 H 34.1 H BUN 16 26 H Creatinine 1.10 1.90 H Calcium 9.1 8.8 Cardiac Enzymes 10/18/17 10/19/17 Range/Units 21:00 03:30 Total Creatine Kinase 52 (39-308) U/L Troponin I 0.15 H 0.28 H (0.02-0.05) ng/mL Liver Function 10/18/17 10/19/17 Range/Units 21:00 04:53 Total Bilirubin 0.9 0.6 (0.2-1.0) mg/dL AST 19 17 (15-37) U/L ALT 21 16 (12-78) U/L Alkaline Phosphatase 109 88 (45-117) U/L Albumin 3.6 2.9 L D (3.4-5.0) g/dL - Imaging Impressions Chest X-Ray 10/18/17 20:27 CONCLUSION: 1. Advanced COPD. 2. No evidence of acute airspace disease or significant congestion. Chest X-Ray 10/18/17 21:47 CONCLUSION: Status post intubation with tip of the endotracheal tube at the thoracic inlet. Gastric tube position of nasogastric tube. Hyperinflated lungs with diffuse interstitial vascular prominence. Chest X-Ray 10/19/17 02:57 CONCLUSION: Modest worsening left base consolidation. Exam Vital signs: Vital Signs 10/18/17 20:29 10/18/17 20:30 10/18/17 20:35 Temperature 98.1 F 98.1 F Pulse Rate 100 H 100 H 101 H Respiratory Rate 22 22 22 Blood Pressure 180/68 H 180/68 H Pulse Oximetry 96 96 95 10/18/17 20:46 10/18/17 20:52 10/18/17 21:25 Temperature Pulse Rate 102 H 101 H Respiratory Rate 22 22 Blood Pressure Pulse Oximetry 94 L 10/18/17 21:45 10/18/17 21:50 10/18/17 22:03 Temperature Pulse Rate 105 H 106 H Respiratory Rate 22 16 16 Blood Pressure 188/74 H 170/96 H Pulse Oximetry 96 100 100 10/18/17 22:09 10/18/17 22:11 10/18/17 22:30 Temperature Pulse Rate 105 H 100 H 97 H Respiratory Rate 16 16 16 Blood Pressure 165/77 H 99/57 L Pulse Oximetry 100 100 100 10/18/17 22:46 10/18/17 23:00 10/18/17 23:20 Temperature Pulse Rate 92 H 88 86 Respiratory Rate 16 16 16 Blood Pressure 116/53 L 131/54 L 143/57 H Pulse Oximetry 100 100 100 10/18/17 23:45 10/19/17 00:00 10/19/17 00:47 Temperature 97.7 F Pulse Rate 83 78 83 Respiratory Rate 16 16 16 Blood Pressure 136/61 170/70 H Pulse Oximetry 100 100 100 10/19/17 01:00 10/19/17 02:00 10/19/17 03:00 Temperature 98.4 F Pulse Rate 80 82 Respiratory Rate 16 16 16 Blood Pressure 77/45 L 100/50 L 119/52 L Pulse Oximetry 100 100 100 10/19/17 03:07 10/19/17 03:43 10/19/17 04:00 Temperature 98.4 F Pulse Rate 83 82 Respiratory Rate 16 16 16 Blood Pressure 94/58 L Pulse Oximetry 100 10/19/17 05:00 10/19/17 06:00 Temperature Pulse Rate 80 79 Respiratory Rate 16 16 Blood Pressure 96/47 L 95/42 L Pulse Oximetry 100 100 Intake & Output 10/18/17 10/18/17 10/19/17 06:59 18:59 06:59 Intake Total 50 / 50 Output Total 325 / 325 Balance -275 / -275 Weight 59.2 kg Intake: IV 50 / 50 Versed Inj 50 mg In 50 ml @ 2 50 / 50 MG/HR 2 mls/hr IV.CONT TITRATE PRN Rx#:[id number] Oral 0 / 0 Output: Urine Amount (Catheter) 325 / 325 Indwelling Urethral Catheter 325 / 325 Other: Weight On Admission 59.2 kg Narrative: GENERAL: Intubated heavily sedated elderly male SKIN: warm/dry. HEAD: Atraumatic. Normocephalic. EYES: Pupils equal and round. ENT: Mucous membranes dry. Orotracheally intubated NECK: Trachea midline. No JVD. CARDIOVASCULAR: Tachycardic, hypotensive with map of 59. No murmur appreciated. RESPIRATORY: On vent PRVC. Air entry equal bilaterally mild expiratory wheezing. Bronchial breath sounds and crackles left lower lobe region GASTROINTESTINAL: Abdomen soft, non-tender, nondistended. Hepatic and splenic margins not palpable. MUSCULOSKELETAL: No obvious deformities. No clubbing. No cyanosis. No edema. NEUROLOGICAL: Intubated heavily sedated with Versed and fentanyl infusions. On sedation lightening moves all extremities not following commands Septic Shock Reassessment Septic shock perfusion: reassessment completed Caprini VTE Risk Assessment Caprini VTE Risk Assessment: Moderate/High Risk (score >= 2) Caprini Risk Assessment Model: Point Value = 1 Point Value = 2 Point Value = 3 Point Value = 5 Age 41-60 Minor surgery BMI > 25 kg/m2 Swollen legs Varicose veins or History of unexplained or recurrent spontaneous Oral contraceptives or hormone replacement Sepsis (< 1 month) Serious lung disease, including pneumonia (< 1 month) Abnormal pulmonary function Acute myocardial infarction Congestive heart failure (< 1 month) History of inflammatory bowel disease Medical patient at bed rest Age 61-74 Arthroscopic surgery Major open surgery (> 45 min) Laparoscopic surgery (> 45 min) Malignancy Confined to bed (> 72 hours) Immobilizing plaster cast Central venous access Age >= 75 History of VTE Family history of VTE Factor V Leiden Prothrombin [id number] Lupus anticoagulant Anticardiolipin antibodies Elevated serum homocysteine Heparin-induced thrombocytopenia Other congenital or acquired thrombophilia Stroke (< 1 month) Elective arthroplasty Hip, pelvis, or leg fracture Acute spinal cord injury (< 1 month) Prophylaxis Regimen: Total Risk Factor Score Risk Level Prophylaxis Regimen 0-1 Low Early ambulation 2 Moderate Order ONE of the following: *Sequential Compression Device (SCD) *Heparin 5000 units SQ BID 3-4 Higher Order ONE of the following medications: *Heparin 5000 units SQ TID *Enoxaparin/Lovenox 40 mg SQ daily (WT < 150 kg, CrCl > 30 mL/min) *Enoxaparin/Lovenox 30 mg SQ daily (WT < 150 kg, CrCl > 10-29 mL/min) *Enoxaparin/Lovenox 30 mg SQ BID (WT < 150 kg, CrCl > 30 mL/min) AND/OR *Sequential Compression Device (SCD) 5 or more Highest Order ONE of the following medications: *Heparin 5000 units SQ TID (Preferred with Epidurals) *Enoxaparin/Lovenox 40 mg SQ daily (WT < 150 kg, CrCl > 30 mL/min) *Enoxaparin/Lovenox 30 mg SQ daily (WT < 150 kg, CrCl > 10-29 mL/min) *Enoxaparin/Lovenox 30 mg SQ BID (WT < 150 kg, CrCl > 30 mL/min) AND *Sequential Compression Device (SCD) Assessment and Plan - Problem List (1) Left lower lobe pneumonia Code(s): J18.1 - Lobar pneumonia, unspecified organism Status: Acute (2) Acute exacerbation of chronic obstructive pulmonary disease (COPD) Code(s): J44.1 - Chronic obstructive pulmonary disease with (acute) exacerbation Status: Acute (3) Acute kidney injury Code(s): N17.9 - Acute kidney failure, unspecified Status: Acute (4) Hypotension Code(s): I95.9 - Hypotension, unspecified Status: Acute (5) Acute hypercapnic respiratory failure Code(s): J96.02 - Acute respiratory failure with hypercapnia Status: Acute - Assessment and Plan Plan: NEURO: -Versed and fentanyl for sedation and ventilator synchrony -Daily sedation vacation starting in 24 hour -Hold temazepam RESP: Acute COPD exacerbation Acute hypercapnic respiratory failure Left lower lobe pneumonia History of COPD on home oxygen -PRVC/AC, serial ABGs as indicated -Ventilator bundle -DuoNeb every 4 hours scheduled and as needed -IV Rocephin and azithromycin -Chest x-ray in a.m. follow-up sputum culture CV: Hypotension History of atrial fibrillation -Normal saline IV fluids 2L bolus and 100 ml per hour -Use Levophed if needed to keep map above 65 -Hold metoprolol due to hypotension, continue amiodarone GI: -Started on Jevity tube feeds, changed to Glucerna due to hypoglycemia, IV famotidine : Acute kidney injury -Monitor renal function closely. [place] catheter. -Give 2 L fluid bolus now, continue maintenance fluid at 100 mL/h -Repeat CMP at 2 PM ID: Left lower lobe pneumonia Severe sepsis -Antibiotics with Rocephin and azithromycin -Blood and sputum cultures HEME: -Monitor CBC, coags ENDO: Hyperglycemia -Electrolyte replacement per protocol -Sliding scale insulin PROPH: -Bilateral lower extremity SCDs. Lovenox/famotidine LINES: -Utilize peripheral IVs, central line if needed CC time 42 min Patient is critically ill with severe pneumonia and sepsis, acute hypercapnic respiratory failure and renal failure. Continue aggressive supportive care with resuscitation ventilator support and broad-spectrum antibiotics Code Status: Full Discussed Condition With: Bedside RN H&P: Quality - VTE Deep Vein Thrombosis/Pulmonary Embolism Present on Admission: No
[2017-10-19] MEDS ORDERED: Dextrose 50% in Water 50 ML Vial IV.PUSH PRN (06:42)
[2017-10-19] MEDS ORDERED: Sod Chloride 0.9% Inj 1,000 ML IV.SIG SCH (06:45)
[2017-10-19] MEDS: Sod Chloride 0.9% Inj 1,000 ML IV.SIG SCH (07:04)
[2017-10-19] MEDS ORDERED: Famotidine 20 MG Tablet NG/OG SCH (09:00)
[2017-10-19 09:01] LABS: Clarity,Urine Clear (Clear); Color,Urine Yellow (Yellw/Straw); Glucose,Urine (UA) Negative (Negative); Leukocyte Esterase,Urine Small (Negative); Nitrite,Urine Negative (Negative); Specific Gravity,Urine Greater/Equal 1.030 (1.002-1.035); Urobilinogen,Urine 0.2 mg/dL (Less than 2)
[2017-10-19 09:38] LABS: Bilirubin,Urine Negative (Negative)
[2017-10-19 09:39] LABS: RBC,Urine 0-3 /hpf (0-3); WBC,Urine 0-5 /hpf (0-5)
[2017-10-19] MEDS: Senna/Docusate Sodium 8.6/50 MG Tablet PO SCH ×2 (10:58→20:39)
[2017-10-19] MEDS: Amiodarone 200 MG Tablet PO SCH (10:58)
--- NOTE | 2017-10-19 11:54 | ECG ---
Date Performed: 10/19/2017 Time Performed: 04:46:47 PTAGE: 67 years EKG: Sinus rhythm NORMAL ECG PREVIOUS TRACING : 10/18/2017 20.26 Since the previous tracing, no significant change noted DOCTOR: Des Pérez Interpretating Date/Time 10/19/2017 11:53:34
--- NOTE | 2017-10-19 13:18 | P.DIET ---
Nutritional Evaluation Type of nutrition evaluation: initial Nutrition consult regarding: Tube Feeding Objective - Diagnosis Hypercapnia, Resp Failure - Objective [place] body weight: 67.3 kg % IBW: 88 Body Weight Used for Calculations: Actual Energy Needs - Lower Range (kCal/kg): 27 Energy Needs - Upper Range (kCal/kg): 32 Lower Limit kCal/kg (kCals): 1,598 Upper Limit kCal/kg (kCals): 1,894 Lower Limit Protein Factor (Grams per Kg): 1.1 Upper Limit Protein Factor (Grams per Kg): 1.4 Lower Protein Needs (Protein): 65 Upper Protein Needs (Protein): 83 Dietitian Reviewed in Medical Record: Curent medications, Intake & Output, Labs , Medical history, Tube feeding Diet Order: TF'ing ONLY: Glucerna 1.5 @ goal rate 45ml/hr Objective Comments: PMH: COPD, Asthma, AFib, hyperlipidemia, HTN, TIA 2011, Insomnia [place] Glucose 296, POC Glucose 358, BUN 26, Creatinine 1.90, estGFR 35 Meds Include: Novolog SSI, Solumedrol Assessment Assessment: Pt is at nutritional risk r/t need for TF'ing. TF'ing w/ Glucerna 1.5 @ goal rate 45ml/hr provides for pt's assessed needs and will offer 1620 kcal, 89.1g protein and 820ml free water. Propofol provides some additional kcals(1.1 kcal/ ml)when running. Labs reviewed-monitor glucose and renal labs. Additional Recs to follow r/t Clinical Course. Recommendations: 1. TF'ing w/ Glucerna 1.5 @ goal rate 45ml/hr 2. Propofol provides some additional kcals(1.1 kcal/ml)when running 3. Additional Recs to follow r/t Clinical Course Dietitian to Monitor: Lab values, Renal labs, Glucose level, Intake & Output, Tube feeding tolerance, Weight change, Medical course
[2017-10-19 16:01] LABS: Chloride 97 meq/L (98-107); Potassium 4.3 meq/L (3.5-5.1); Sodium 135 meq/L (136-145)
[2017-10-19 16:04] LABS: Albumin 2.9 g/dL (3.4-5.0); Anion Gap 4 meq/L (5-15); Calcium 8.5 mg/dL (8.5-10.1); Carbon Dioxide 34.1 meq/L (21.0-32.0); Glucose,Random 330 mg/dL (74-106)
[2017-10-19 16:05] LABS: Blood Urea Nitrogen 29 mg/dL (7-18)
[2017-10-19 16:07] LABS: Alanine Aminotransferase 15 U/L (12-78); Aspartate Aminotransferase 18 U/L (15-37)
[2017-10-19 16:08] LABS: Glomerular Filtration Rate 46 mL/min (>89)
[2017-10-19 16:09] LABS: Total Protein 6.5 g/dL (6.4-8.2)
[2017-10-19 16:10] LABS: Alkaline Phosphatase 85 U/L (45-117)
[2017-10-19] MEDS: Insulin NovoLOG Aspart Correctional Sugar Inj SQ SCH (16:17)
[2017-10-19] MEDS: Famotidine 20 MG Tablet NG/OG SCH (20:38)
[2017-10-19] MEDS: Montelukast 10 MG Tablet PO SCH (20:38)
[2017-10-19] MEDS ORDERED: Azithromycin Inj 500 MG in Sodium Chlor 0.9% Inj 250 ML IV.SIG SCH (22:00)
[2017-10-20] MEDS: Midazolam 50 MG/50 ML Inj 50 MG/50 ML BAG IV.CONT PRN ×2 (00:20→18:23)
[2017-10-20] MEDS: Insulin NovoLOG Aspart Correctional Sugar Inj SQ SCH ×5 (00:27→17:34)
[2017-10-20] MEDS: Azithromycin Inj 500 MG in Sodium Chlor 0.9% Inj 250 ML IV.SIG SCH (03:22)
[2017-10-20] MEDS: MethylPREDNISolone Sod Succinate Inj 125 MG/2 ML Vial IV.PUSH SCH ×5 (03:23→20:17)
[2017-10-20 04:55] LABS: Hematocrit 25.4 % (39.0-51.0); Hemoglobin 8.6 gm/dL (13.0-17.0); Mean Corpuscular HGB Conc 33.9 % (32.0-36.0); Mean Corpuscular Hemoglobin 29.2 pg (27.0-34.0); Mean Platelet Volume 8.6 fL (7.0-11.0); Platelet Count 191 th/mm3 (150-450); Red Blood Count 2.95 mil/mm3 (4.50-5.90); Red Cell Distribution Width 15.8 % (11.6-17.2); White Blood Count 9.8 th/mm3 (4.0-11.0)
--- NOTE | 2017-10-20 04:57 | XR ---
EXAM DATE: 10/20/2017 4:55 AM EDT AGE/SEX: 67 years / Male INDICATIONS: Short of breath, Respiratory disease. CLINICAL DATA: This is the patient's subsequent encounter. Patient reports that signs and symptoms h ave been present for 3 days and indicates a pain score of Nonresponsive. MEDICAL/SURGICAL HISTORY: Non-responsive. Non-responsive. COMPARISON: HPO, CHEST 1V SINGLE AP, 10/19/2017. . FINDINGS: Persistent mild consolidation at the left base. Biapical scarring again noted. No pleural effusion. N o pneumothorax. Heart size stable, within normal limits. Endotracheal tube tip is approximately 4 cm above the mika. There is a nasogastric tube with tip in the stomach, sidehole near the GE junction. CONCLUSION: No significant change. Electronically signed by: Cruzito Mejia MD 10/20/2017 4:56 AM EDT
[2017-10-20 04:59] LABS: Chloride 98 meq/L (98-107); Potassium 4.8 meq/L (3.5-5.1); Sodium 134 meq/L (136-145)
[2017-10-20 05:03] LABS: Calcium 8.2 mg/dL (8.5-10.1)
[2017-10-20 05:04] LABS: Albumin 2.7 g/dL (3.4-5.0); Anion Gap 5 meq/L (5-15); Carbon Dioxide 31.4 meq/L (21.0-32.0)
[2017-10-20 05:12] LABS: Alanine Aminotransferase 16 U/L (12-78); Alkaline Phosphatase 87 U/L (45-117); Aspartate Aminotransferase 13 U/L (15-37); Blood Urea Nitrogen 36 mg/dL (7-18); Glomerular Filtration Rate 43 mL/min (>89); Glucose,Random 266 mg/dL (74-106); Magnesium 2.7 mg/dL (1.5-2.5); Total Protein 6.5 g/dL (6.4-8.2)
[2017-10-20] MEDS: Enoxaparin Inj 40 MG/0.4 ML Syringe SQ SCH (05:46)
--- NOTE | 2017-10-20 06:59 | P.PNCC ---
Subjective Subjective Remarks/Hospital Course: Patient is a 67-year-old [place] male with history of asthma, COPD, atrial fibrillation, hyperlipidemia, TIA 2011, hypertension who presented to the [facility] emergency department with complaints of shortness of breath. He has COPD , and uses 2L oxygen at home. Increasing complaints of shortness of breath over the last few days, in the ED he was severely short of breath and unable to provide any significant history. EMS administered 125mg of solumedrol IV and gave neb treatment prior to arrival to the ER. ER workup showed ABG with pH 7.22 PCO2 98 and PO2 96 on 2 L nasal cannula. Chest x-ray showed left lower lobe pneumonia. Patient was emergently intubated due to severe shortness of breath hypercapnic respiratory failure, I see him still severely short of breath after 3 DuoNeb breathing treatments and IV Solu-Medrol.. Started on scheduled IV Solu-Medrol and antibiotics with Rocephin and azithromycin. I evaluated the patient in the [facility] emergency department. He is intubated sedated. He is hypotensive with a map 58-60, urine output 150 mL over the last 5 hours. Creatinine has increased from 1.1-1.9. I have ordered 2 L normal saline bolus. Oxygenation and hypercapnia has improved post intubation, but patient remains critically ill SUBJ 10/20/17: Remains intubated sedated. FiO2 down to 35% but clinically has bilateral inspiratory and expiratory wheezing. Chest x-ray persistent left lower lobe pneumonia. Creatinine 1.6 today. 850 mL urine output since admission with fluid resuscitation Objective Vital Signs / I&O: Vital Signs 10/19/17 07:00 10/19/17 07:25 10/19/17 08:00 Temperature 98 F 98.5 F Pulse Rate 80 78 Respiratory Rate 16 16 15 Blood Pressure 111/50 L 118/53 L Pulse Oximetry 99 98 97 10/19/17 09:00 10/19/17 10:00 10/19/17 10:29 Temperature Pulse Rate 76 72 Respiratory Rate 16 16 16 Blood Pressure 131/59 L 132/59 L Pulse Oximetry 97 97 98 10/19/17 11:00 10/19/17 11:55 10/19/17 12:00 Temperature 97 F L 97 F L Pulse Rate 70 68 69 Respiratory Rate 16 16 16 Blood Pressure 137/60 146/65 H 146/65 H Pulse Oximetry 98 99 10/19/17 13:00 10/19/17 13:30 10/19/17 14:00 Temperature Pulse Rate 66 66 Respiratory Rate 6 L 16 16 Blood Pressure 146/65 H 141/61 H Pulse Oximetry 98 98 98 10/19/17 15:00 10/19/17 16:00 10/19/17 16:40 Temperature 97.2 F L Pulse Rate 68 68 Respiratory Rate 16 16 16 Blood Pressure 127/54 L 140/59 L Pulse Oximetry 99 98 10/19/17 17:00 10/19/17 18:00 10/19/17 19:00 Temperature Pulse Rate 70 68 68 Respiratory Rate 16 16 16 Blood Pressure 130/58 L 100/47 L 106/51 L Pulse Oximetry 97 93 L 99 10/19/17 19:25 10/19/17 19:30 10/19/17 20:00 Temperature 97.1 F L Pulse Rate 69 72 Respiratory Rate 16 16 16 Blood Pressure 111/52 L Pulse Oximetry 99 98 10/19/17 21:00 10/19/17 22:00 10/19/17 22:45 Temperature Pulse Rate 72 74 Respiratory Rate 16 15 16 Blood Pressure 119/54 L 121/56 L Pulse Oximetry 97 100 100 10/19/17 23:00 10/20/17 00:00 10/20/17 00:30 Temperature 97.6 F Pulse Rate 72 74 77 Respiratory Rate 16 15 16 Blood Pressure 119/57 L 139/56 L Pulse Oximetry 99 100 10/20/17 01:00 10/20/17 01:30 10/20/17 02:00 Temperature Pulse Rate 76 76 Respiratory Rate 16 16 16 Blood Pressure 120/57 L 113/53 L Pulse Oximetry 98 97 98 10/20/17 03:00 10/20/17 03:30 10/20/17 04:00 Temperature 96.5 F L Pulse Rate 74 76 86 Respiratory Rate 15 16 16 Blood Pressure 119/58 L 135/60 Pulse Oximetry 99 99 10/20/17 04:25 10/20/17 05:00 10/20/17 06:00 Temperature Pulse Rate 84 78 Respiratory Rate 16 16 16 Blood Pressure 112/55 L 118/58 L Pulse Oximetry 100 99 98 Intake & Output 10/19/17 10/19/17 10/20/17 06:59 18:59 06:59 Intake Total 50 / 50 2980.5 / 2980.5 1557.6 / 1557.6 Output Total 325 / 325 340 / 340 850 / 850 Balance -275 / -275 2640.5 / 2640.5 707.6 / 707.6 Weight 59.2 kg 60.4 kg Intake: IV 50 / 50 2425.5 / 2425.5 940.6 / 940.6 D5W/1/2NS + KCL 20 mEq Inj 1, 1333 / 1333 667 / 667 000 ML @ 100 mls/hr IV.CONT . Q10H ALIDA Rx#:[id number] Versed Inj 50 mg In 50 ml @ 2 50 / 50 26.4 / 26.4 23.6 / 23.6 MG/HR 2 mls/hr IV.CONT TITRATE PRN Rx#:[id number] Azithromycin Inj 500 MG In NS 250 / 250 Inj 250 ML @ 250 mls/hr IV.SIG Q24H ALIDA Rx#:[id number] NS Inj 1,000 ML @ Wide Open IV. 1000 / 1000 SIG BOLUS ALIDA Rx#:[id number] fentaNYL 10 mcg/mL Premix Drip 66.1 / 66.1 2,500 mcg In 250 ml @ 50 MCG/HR 5 mls/hr IV.SIG TITRATE PRN Rx #:[id number] Oral 0 / 0 0 / 0 Tube Feeding 495 / 495 497 / 497 Tube Irrigant 60 / 60 Water Bolus Amount 120 / 120 Output: Urine 850 / 850 Urine Amount (Catheter) 325 / 325 340 / 340 Indwelling Urethral Catheter 325 / 325 340 / 340 Other: # Bowel Movements 0 Weight On Admission 59.2 kg Result Diagrams: 10/20/17 04:27 10/20/17 04:27 Objective Remarks: GENERAL: Intubated heavily sedated elderly male SKIN: warm/dry. HEAD: Atraumatic. Normocephalic. EYES: Pupils equal and round. ENT: Mucous membranes dry. Orotracheally intubated NECK: Trachea midline. No JVD. CARDIOVASCULAR: S1-S2 normal. No murmur appreciated. RESPIRATORY: On vent PRVC. Air entry equal bilaterally with expiratory wheezing. Bronchial breath sounds and crackles left lower lobe region GASTROINTESTINAL: Abdomen soft, non-tender, nondistended. Hepatic and splenic margins not palpable. MUSCULOSKELETAL: No obvious deformities. No clubbing. No cyanosis. No edema. NEUROLOGICAL: Intubated heavily sedated with Versed and fentanyl infusions. On sedation lightening moves all extremities not following commands Assessment and Plan - Problem List (1) Left lower lobe pneumonia Code(s): J18.1 - Lobar pneumonia, unspecified organism Status: Acute (2) Acute exacerbation of chronic obstructive pulmonary disease (COPD) Code(s): J44.1 - Chronic obstructive pulmonary disease with (acute) exacerbation Status: Acute (3) Acute kidney injury Code(s): N17.9 - Acute kidney failure, unspecified Status: Acute (4) Hypotension Code(s): I95.9 - Hypotension, unspecified Status: Acute (5) Acute hypercapnic respiratory failure Code(s): J96.02 - Acute respiratory failure with hypercapnia Status: Acute - Assessment and Plan Plan: NEURO: -Versed and fentanyl for sedation and ventilator synchrony -Daily sedation vacation starting today -Hold temazepam RESP: Acute COPD exacerbation Acute hypercapnic respiratory failure Left lower lobe pneumonia History of COPD on home oxygen -PRVC/AC, serial ABGs as indicated -Ventilator bundle -DuoNeb every 4 hours scheduled and as needed -Continue IV Solu-Medrol 60 mg every 6 hours. Add budesonide inhaled -IV Rocephin and azithromycin -Chest x-ray in a.m. follow-up sputum culture CV: Hypotension-resolved History of atrial fibrillation -s/p Normal saline IV fluids 2L bolus and 100 ml per hour -Use Levophed if needed to keep map above 65 -Hold metoprolol due to hypotension, continue amiodarone GI: -Glucerna tube feeds, IV famotidine : Acute kidney injury -Monitor renal function closely. Corona catheter. -Continue maintenance fluid at 100 mL/h -Repeat CMP at AM ID: Left lower lobe pneumonia Severe sepsis -Antibiotics with Rocephin and azithromycin -Blood and sputum cultures HEME: -Monitor CBC, coags ENDO: Hyperglycemia -Electrolyte replacement per protocol -Sliding scale insulin PROPH: -Bilateral lower extremity SCDs. Lovenox/famotidine LINES: -Utilize peripheral IVs, central line if needed CC time 32 min Patient is critically ill with severe pneumonia and sepsis, acute hypercapnic respiratory failure and renal failure. Continue aggressive supportive care with resuscitation ventilator support and broad-spectrum antibiotics Code Status: Full
[2017-10-20] MEDS: KCL 20 mEq/D5W/NaCl 0.45% Inj 1,000 ML IV.CONT SCH ×4 (08:09→21:15)
[2017-10-20] MEDS: Famotidine 20 MG Tablet NG/OG SCH ×2 (08:10→20:18)
[2017-10-20] MEDS: Senna/Docusate Sodium 8.6/50 MG Tablet PO SCH ×2 (08:10→20:19)
[2017-10-20] MEDS: Amiodarone 200 MG Tablet PO SCH (08:11)
[2017-10-20] MEDS: fentaNYL 10 mcg/mL Premix Drip 2,500 MCG/250 ML BAG IV.SIG PRN (13:56)
[2017-10-20] MEDS ORDERED: Sod Chloride 0.9% Inj 1,000 ML IV.SIG ONE (14:30)
[2017-10-20] MEDS: Sod Chloride 0.9% Inj 1,000 ML IV.SIG SCH (14:33)
[2017-10-20] MEDS: Montelukast 10 MG Tablet PO SCH (17:34)
[2017-10-20 19:56] LABS: Alanine Aminotransferase 14 U/L (12-78); Albumin 2.5 g/dL (3.4-5.0); Alkaline Phosphatase 73 U/L (45-117); Anion Gap 2 meq/L (5-15); Aspartate Aminotransferase 17 U/L (15-37); Blood Urea Nitrogen 37 mg/dL (7-18); Carbon Dioxide 30.9 meq/L (21.0-32.0); Chloride 100 meq/L (98-107); Glomerular Filtration Rate 50 mL/min (>89); Glucose,Random 218 mg/dL (74-106); Potassium 5.7 meq/L (3.5-5.1); Sodium 133 meq/L (136-145); Total Protein 6.1 g/dL (6.4-8.2)
[2017-10-21] MEDS: Insulin NovoLOG Aspart Correctional Sugar Inj SQ SCH ×4 (00:18→18:13)
[2017-10-21] MEDS: Azithromycin Inj 500 MG in Sodium Chlor 0.9% Inj 250 ML IV.SIG SCH (03:00)
[2017-10-21] MEDS: MethylPREDNISolone Sod Succinate Inj 125 MG/2 ML Vial IV.PUSH SCH ×4 (03:00→20:38)
[2017-10-21 05:12] LABS: Hematocrit 28.5 % (39.0-51.0); Mean Corpuscular HGB Conc 31.8 % (32.0-36.0); Mean Corpuscular Hemoglobin 27.9 pg (27.0-34.0); Mean Corpuscular Volume 87.7 fL (80.0-100.0); Mean Platelet Volume 8.6 fL (7.0-11.0); Platelet Count 212 th/mm3 (150-450); Red Blood Count 3.24 mil/mm3 (4.50-5.90); Red Cell Distribution Width 15.7 % (11.6-17.2); White Blood Count 9.7 th/mm3 (4.0-11.0)
[2017-10-21 05:20] LABS: Chloride 100 meq/L (98-107); Potassium 6.4 meq/L (3.5-5.1); Sodium 133 meq/L (136-145)
--- NOTE | 2017-10-21 05:24 | XR ---
EXAM DATE: 10/21/2017 4:51 AM EDT AGE/SEX: 67 years / Male INDICATIONS: Short of breath, respiratory disease. CLINICAL DATA: This is the patient's subsequent encounter. Patient reports that signs and symptoms h ave been present for 4 - 6 days and indicates a pain score of 0/10. MEDICAL/SURGICAL HISTORY: Non-responsive. Angioplasty. COMPARISON: [facility], CHEST 1V SINGLE AP, 10/20/2017. . FINDINGS: Patchy parenchymal opacities are not significantly changed. No large effusion. No pneumothorax. Chron ic right greater the left apical scarring again seen. Stable, normal heart size. Tortuous and atherosclerotic aorta again noted. Endotracheal tube tip is approximately 3 cm above the mika. Nasogastric tube courses into the stoma ch. CONCLUSION: No significant change. Electronically signed by: Cruzito Mejia MD 10/21/2017 5:23 AM EDT
[2017-10-21 05:26] LABS: Albumin 2.6 g/dL (3.4-5.0); Anion Gap 3 meq/L (5-15); Calcium 8.4 mg/dL (8.5-10.1); Carbon Dioxide 29.7 meq/L (21.0-32.0)
[2017-10-21 05:27] LABS: Blood Urea Nitrogen 37 mg/dL (7-18); Glucose,Random 225 mg/dL (74-106)
[2017-10-21 05:29] LABS: Alanine Aminotransferase 14 U/L (12-78); Aspartate Aminotransferase 23 U/L (15-37)
[2017-10-21 05:30] LABS: Glomerular Filtration Rate 50 mL/min (>89)
[2017-10-21 05:31] LABS: Total Protein 6.8 g/dL (6.4-8.2)
[2017-10-21 05:32] LABS: Alkaline Phosphatase 81 U/L (45-117)
[2017-10-21] MEDS: Enoxaparin Inj 40 MG/0.4 ML Syringe SQ SCH (06:00)
[2017-10-21] MEDS: KCL 20 mEq/D5W/NaCl 0.45% Inj 1,000 ML IV.CONT SCH (06:42)
[2017-10-21] MEDS ORDERED: Sodium Polystyrene Sulfonate/Sorbitol Liq 15 GM/60 ML UDC PO ONE ×2 (07:38→14:16)
[2017-10-21] MEDS ORDERED: Sodium Bicarbonate 8.4% Inj 50 MEQ/50 ML Syringe IV.PUSH ONE ×2 (07:38→14:17)
[2017-10-21] MEDS: Amiodarone 200 MG Tablet PO SCH (08:21)
[2017-10-21] MEDS: Famotidine 20 MG Tablet NG/OG SCH ×2 (08:21→20:37)
[2017-10-21] MEDS: Senna/Docusate Sodium 8.6/50 MG Tablet PO SCH ×2 (08:22→20:40)
[2017-10-21] MEDS: Sod Chloride 0.9% Inj 1,000 ML IV.CONT SCH (08:22)
[2017-10-21] MEDS: Dexmedetomidine Inj 200 MCG in Sodium Chlor 0.9% Inj 48 ML IV.CONT PRN ×3 (11:39→20:34)
[2017-10-21] MEDS: fentaNYL 10 mcg/mL Premix Drip 2,500 MCG/250 ML BAG IV.SIG PRN ×2 (11:45→15:26)
[2017-10-21 12:09] LABS: ABG Base Excess 4.6 mmol/L (-2-2); ABG PCO2 71 mmHg (38-42); ABG PO2 88 mmHg (61-120)
[2017-10-21 12:43] LABS: Chloride 101 meq/L (98-107); Potassium 6.2 meq/L (3.5-5.1); Sodium 137 meq/L (136-145)
[2017-10-21 12:47] LABS: Albumin 2.7 g/dL (3.4-5.0); Anion Gap 3 meq/L (5-15); Calcium 8.4 mg/dL (8.5-10.1); Carbon Dioxide 33.5 meq/L (21.0-32.0); Glucose,Random 140 mg/dL (74-106)
[2017-10-21 12:48] LABS: Blood Urea Nitrogen 41 mg/dL (7-18)
[2017-10-21 12:56] LABS: Alanine Aminotransferase 29 U/L (12-78); Alkaline Phosphatase 93 U/L (45-117); Aspartate Aminotransferase 41 U/L (15-37); Glomerular Filtration Rate 50 mL/min (>89); Total Protein 6.8 g/dL (6.4-8.2)
[2017-10-21] MEDS ORDERED: Sodium Polystyrene Sulfonate/Sorbitol Liq 15 GM/60 ML UDC RECTAL ONE (15:00)
--- NOTE | 2017-10-21 16:55 | P.PNCC ---
Subjective Subjective Remarks/Hospital Course: Patient is a 67-year-old [place] male with history of asthma, COPD, atrial fibrillation, hyperlipidemia, TIA 2011, hypertension who presented to the [facility] emergency department with complaints of shortness of breath. He has COPD , and uses 2L oxygen at home. Increasing complaints of shortness of breath over the last few days, in the ED he was severely short of breath and unable to provide any significant history. EMS administered 125mg of solumedrol IV and gave neb treatment prior to arrival to the ER. ER workup showed ABG with pH 7.22 PCO2 98 and PO2 96 on 2 L nasal cannula. Chest x-ray showed left lower lobe pneumonia. Patient was emergently intubated due to severe shortness of breath hypercapnic respiratory failure, I see him still severely short of breath after 3 DuoNeb breathing treatments and IV Solu-Medrol.. Started on scheduled IV Solu-Medrol and antibiotics with Rocephin and azithromycin. I evaluated the patient in the [facility] emergency department. He is intubated sedated. He is hypotensive with a map 58-60, urine output 150 mL over the last 5 hours. Creatinine has increased from 1.1-1.9. I have ordered 2 L normal saline bolus. Oxygenation and hypercapnia has improved post intubation, but patient remains critically ill SUBJ 10/20/17: Remains intubated sedated. FiO2 down to 35% but clinically has bilateral inspiratory and expiratory wheezing. Chest x-ray persistent left lower lobe pneumonia. Creatinine 1.6 today. 850 mL urine output since admission with fluid resuscitation 10/21/17: Remains intubated sedated with Precedex and fentanyl now. Potassium was 6.4. IV fluid changed to normal saline without potassium. Emergently treated with Kayexalate IV bicarb breathing treatments and IV insulin and D50. Only marginal improvement of 6.2 additional treatments ordered along with Kayexalate enema. FiO2 down to 35% but patient did not tolerate CPAP trials today pH went down to 7.27 up to CPAP, became tachycardic. Intermittently following commands. Objective Vital Signs / I&O: Vital Signs 10/20/17 17:00 10/20/17 17:19 10/20/17 18:00 Temperature Pulse Rate 74 72 Respiratory Rate 15 16 15 Blood Pressure 123/57 L 114/56 L Pulse Oximetry 99 99 99 10/20/17 19:00 10/20/17 19:25 10/20/17 20:00 Temperature 98.4 F Pulse Rate 72 72 70 Respiratory Rate 15 16 16 Blood Pressure 123/60 127/60 Pulse Oximetry 98 99 99 10/20/17 21:00 10/20/17 22:00 10/20/17 22:15 Temperature Pulse Rate 72 76 Respiratory Rate 16 15 16 Blood Pressure 133/60 129/61 Pulse Oximetry 100 100 100 10/20/17 23:00 10/20/17 23:01 10/21/17 00:00 Temperature 97.3 F L Pulse Rate 74 74 74 Respiratory Rate 16 16 16 Blood Pressure 125/59 L 135/62 Pulse Oximetry 100 100 10/21/17 01:00 10/21/17 01:35 10/21/17 02:00 Temperature Pulse Rate 74 74 Respiratory Rate 15 16 16 Blood Pressure 136/62 131/59 L Pulse Oximetry 100 100 100 10/21/17 03:00 10/21/17 03:40 10/21/17 04:00 Temperature 97.3 F L Pulse Rate 72 72 72 Respiratory Rate 16 16 16 Blood Pressure 132/63 136/62 Pulse Oximetry 100 100 10/21/17 04:10 10/21/17 05:00 10/21/17 06:00 Temperature Pulse Rate 76 74 Respiratory Rate 16 15 16 Blood Pressure 136/60 134/59 L Pulse Oximetry 100 100 100 10/21/17 07:00 10/21/17 07:10 10/21/17 08:00 Temperature 98.5 F Pulse Rate 92 H 88 Respiratory Rate 16 16 16 Blood Pressure 144/69 H 131/60 Pulse Oximetry 100 100 100 10/21/17 08:09 10/21/17 09:00 10/21/17 09:01 Temperature 98.5 F Pulse Rate 114 H 114 H Respiratory Rate 12 16 Blood Pressure 189/80 H 181/71 H Pulse Oximetry 98 100 10/21/17 09:04 10/21/17 09:19 10/21/17 10:00 Temperature Pulse Rate 108 H 96 H 116 H Respiratory Rate 15 16 12 Blood Pressure 177/74 H 158/66 H 216/89 H Pulse Oximetry 100 100 97 10/21/17 10:04 10/21/17 10:15 10/21/17 10:23 Temperature Pulse Rate 126 H 118 H 114 H Respiratory Rate 19 14 13 Blood Pressure 221/96 H 196/86 H 168/75 H Pulse Oximetry 95 97 95 10/21/17 10:57 10/21/17 11:00 10/21/17 12:00 Temperature 98.5 F Pulse Rate 104 H 110 H Respiratory Rate 14 13 12 Blood Pressure 145/64 H 180/76 H Pulse Oximetry 97 97 97 10/21/17 12:05 10/21/17 12:15 10/21/17 12:30 Temperature Pulse Rate 122 H 112 H 102 H Respiratory Rate 14 12 15 Blood Pressure 210/86 H 176/67 H 134/62 Pulse Oximetry 85 L 94 L 97 10/21/17 12:45 10/21/17 13:00 10/21/17 13:15 Temperature Pulse Rate 96 H 120 H 100 H Respiratory Rate 17 20 15 Blood Pressure 134/61 187/74 H 151/68 H Pulse Oximetry 98 97 96 10/21/17 13:30 10/21/17 13:45 10/21/17 13:49 Temperature Pulse Rate 96 H 88 Respiratory Rate 15 15 16 Blood Pressure 140/64 123/58 L Pulse Oximetry 98 97 98 10/21/17 14:00 Temperature 98.7 F Pulse Rate Respiratory Rate Blood Pressure Pulse Oximetry Intake & Output 10/20/17 10/21/17 10/21/17 18:59 06:59 18:59 Intake Total 1207.5 / 1207.5 3957 / 3957 448.9 / 448.9 Output Total 400 / 400 450 / 450 230 / 230 Balance 807.5 / 807.5 3507 / 3507 218.9 / 218.9 Intake: IV 1207.5 / 1207.5 2350 / 2350 448.9 / 448.9 Precedex Inj 200 MCG In NS Inj 50 / 50 48 ML @ 0.2 MCG/KG/HR 3.02 mls/ hr IV.CONT TITRATE PRN Rx#: [id number] D5W/1/2NS + KCL 20 mEq Inj 1999 / 1999 200 / 200 000 ML @ 100 mls/hr IV.CONT . Q10H ALIDA Rx#:[id number] Versed Inj 50 mg In 50 ml @ 2 23.6 / 23.6 15 / 15 MG/HR 2 mls/hr IV.CONT TITRATE PRN Rx#:[id number] Azithromycin Inj 500 MG In NS 250 / 250 Inj 250 ML @ 250 mls/hr IV.SIG Q24H ALIDA Rx#:[id number] NS Inj 1,000 ML @ As Directed 1000 / 1000 IV.SIG .Q0M ONE Rx#:[id number] Rocephin Inj 1,000 MG In NS Inj 100 / 100 100 ML @ 200 mls/hr IV.SIG Q24H ALIDA Rx#:[id number] fentaNYL 10 mcg/mL Premix Drip 183.9 / 183.9 183.9 / 183.9 2,500 mcg In 250 ml @ 50 MCG/HR 5 mls/hr IV.SIG TITRATE PRN Rx #:[id number] Oral 0 / 0 0 / 0 Tube Feeding 238 / 238 Water Bolus Amount 60 / 60 Other 1309 / 1309 Output: Urine 240 / 240 100 / 100 Urine Amount (Catheter) 160 / 160 450 / 450 130 / 130 Indwelling Urethral Catheter 160 / 160 450 / 450 130 / 130 Other: # Bowel Movements 0 Result Diagrams: 10/21/17 04:35 10/21/17 12:20 Objective Remarks: GENERAL: Intubated sedated [place] male SKIN: warm/dry. HEAD: Atraumatic. Normocephalic. EYES: Pupils equal and round. ENT: Mucous membranes dry. Orotracheally intubated NECK: Trachea midline. No JVD. CARDIOVASCULAR: S1-S2 normal. No murmur appreciated. RESPIRATORY: On vent PRVC. Air entry equal bilaterally with mild expiratory wheezing. Bronchial breath sounds and crackles left lower lobe GASTROINTESTINAL : Abdomen soft, non-tender, nondistended. Hepatic and splenic margins not palpable. MUSCULOSKELETAL: No obvious deformities. No clubbing. No cyanosis. No edema. NEUROLOGICAL: Intubated sedated with Precedex and fentanyl infusions. On sedation lightening moves all extremities intermittently following commands Assessment and Plan - Problem List (1) Left lower lobe pneumonia Code(s): J18.1 - Lobar pneumonia, unspecified organism Status: Acute (2) Acute exacerbation of chronic obstructive pulmonary disease (COPD) Code(s): J44.1 - Chronic obstructive pulmonary disease with (acute) exacerbation Status: Acute (3) Acute kidney injury Code(s): N17.9 - Acute kidney failure, unspecified Status: Acute (4) Hypotension Code(s): I95.9 - Hypotension, unspecified Status: Acute (5) Acute hypercapnic respiratory failure Code(s): J96.02 - Acute respiratory failure with hypercapnia Status: Acute - Assessment and Plan Plan: NEURO: Metabolic encephalopathy-improving -Precedex and fentanyl for sedation and ventilator synchrony -Discontinue fentanyl today -Daily sedation vacation -Hold temazepam RESP: Acute COPD exacerbation Acute hypercapnic respiratory failure Left lower lobe pneumonia History of COPD on home oxygen -PRVC/AC, serial ABGs as indicated -Ventilator bundle -DuoNeb every 4 hours scheduled and as needed -Continue IV Solu-Medrol 60 mg every 6 hours. Budesonide inhaled -IV Rocephin and azithromycin -Failed CPAP trial today due to hypercapnia acidosis and tachycardia CV: Hypotension-resolved History of atrial fibrillation -s/p Normal saline IV fluids 2L bolus and 100 ml per hour (changed form Ns with KCL) -Use Levophed if needed to keep map above 65 -Hold metoprolol due to hypotension, continue amiodarone GI: -Glucerna tube feeds, IV famotidine : Acute kidney injury Hyperkalemia -Hyperkalemia treated with Kayexalate, IV bicarb, IV insulin and dextrose, breathing treatments -Also given IV Lasix 60 mg 1 will continue to IV fluid to reduce potassium -Repeat CMP again at 7 PM, and 6 AM -Monitor renal function closely. Corona catheter. -Continue maintenance fluid at 100 mL/h ID: Left lower lobe pneumonia Severe sepsis -Antibiotics with Rocephin and azithromycin -Blood and sputum cultures negative to date HEME: -Monitor CBC, coags ENDO: Hyperglycemia -Electrolyte replacement per protocol -Sliding scale insulin -Hyperkalemia treatment as above PROPH: -Bilateral lower extremity SCDs. Lovenox/famotidine LINES: -Utilize peripheral IVs, central line if needed CC time 35 min Patient is critically ill with severe pneumonia and sepsis, acute hypercapnic respiratory failure and renal failure. Now complicated with hyperkalemia with potassium 6.4. Continue aggressive supportive care with resuscitation ventilator support and broad-spectrum antibiotics, aggressive treatment of hyperkalemia indicated Code Status: Full
[2017-10-21] MEDS: Montelukast 10 MG Tablet PO SCH (18:14)
[2017-10-21 22:19] LABS: Chloride 98 meq/L (98-107); Potassium 5.1 meq/L (3.5-5.1); Sodium 139 meq/L (136-145)
[2017-10-21 22:26] LABS: Alanine Aminotransferase 37 U/L (12-78); Albumin 2.6 g/dL (3.4-5.0); Anion Gap 7 meq/L (5-15); Aspartate Aminotransferase 36 U/L (15-37); Blood Urea Nitrogen 45 mg/dL (7-18); Calcium 8.1 mg/dL (8.5-10.1); Carbon Dioxide 34.5 meq/L (21.0-32.0); Glomerular Filtration Rate 43 mL/min (>89); Glucose,Random 254 mg/dL (74-106); Total Protein 6.3 g/dL (6.4-8.2)
[2017-10-21 22:28] LABS: Alkaline Phosphatase 94 U/L (45-117)
[2017-10-22] MEDS: Dexmedetomidine Inj 200 MCG in Sodium Chlor 0.9% Inj 48 ML IV.CONT PRN ×4 (01:29→18:19)
[2017-10-22] MEDS: Azithromycin Inj 500 MG in Sodium Chlor 0.9% Inj 250 ML IV.SIG SCH (02:56)
[2017-10-22] MEDS: MethylPREDNISolone Sod Succinate Inj 125 MG/2 ML Vial IV.PUSH SCH ×4 (02:57→21:12)
[2017-10-22] MEDS: Sod Chloride 0.9% Inj 1,000 ML IV.SIG SCH (03:12)
[2017-10-22] MEDS: Sod Chloride 0.9% Inj 1,000 ML IV.CONT SCH (04:08)
[2017-10-22] MEDS: Propofol 1000 mg/100 ml Inj 1,000 MG/100 ML BOTTLE IV.CONT PRN (04:40)
[2017-10-22 04:56] LABS: Hematocrit 25.6 % (39.0-51.0); Hemoglobin 8.3 gm/dL (13.0-17.0); Mean Corpuscular HGB Conc 32.2 % (32.0-36.0); Mean Corpuscular Hemoglobin 28.2 pg (27.0-34.0); Mean Corpuscular Volume 87.7 fL (80.0-100.0); Mean Platelet Volume 8.3 fL (7.0-11.0); Platelet Count 188 th/mm3 (150-450); Red Blood Count 2.92 mil/mm3 (4.50-5.90); Red Cell Distribution Width 15.6 % (11.6-17.2); White Blood Count 8.9 th/mm3 (4.0-11.0)
[2017-10-22 05:04] LABS: Chloride 98 meq/L (98-107); Potassium 5.1 meq/L (3.5-5.1); Sodium 138 meq/L (136-145)
[2017-10-22 05:07] LABS: Calcium 7.6 mg/dL (8.5-10.1)
[2017-10-22 05:08] LABS: Albumin 2.4 g/dL (3.4-5.0); Anion Gap 6 meq/L (5-15); Blood Urea Nitrogen 51 mg/dL (7-18); Glucose,Random 326 mg/dL (74-106)
[2017-10-22 05:11] LABS: Alanine Aminotransferase 32 U/L (12-78); Aspartate Aminotransferase 25 U/L (15-37); Glomerular Filtration Rate 40 mL/min (>89)
[2017-10-22 05:13] LABS: Total Protein 5.9 g/dL (6.4-8.2)
[2017-10-22] MEDS: Enoxaparin Inj 40 MG/0.4 ML Syringe SQ SCH (05:13)
[2017-10-22 05:14] LABS: Alkaline Phosphatase 105 U/L (45-117)
[2017-10-22] MEDS: Insulin NovoLOG Aspart Correctional Sugar Inj SQ SCH ×4 (06:12→18:22)
[2017-10-22] MEDS: Amiodarone 200 MG Tablet PO SCH (09:50)
[2017-10-22] MEDS: Famotidine 20 MG Tablet NG/OG SCH ×2 (09:50→21:11)
[2017-10-22] MEDS: Senna/Docusate Sodium 8.6/50 MG Tablet PO SCH ×2 (09:52→21:12)
[2017-10-22] MEDS: fentaNYL 10 mcg/mL Premix Drip 2,500 MCG/250 ML BAG IV.SIG PRN (13:05)
[2017-10-22 13:14] LABS: ABG Base Excess 9.2 mmol/L (-2-2); ABG PCO2 67 mmHg (38-42); ABG PO2 87 mmHg (61-120)
[2017-10-22] MEDS: Metoprolol Tartrate 50 MG Tablet PO SCH (15:10)
--- NOTE | 2017-10-22 17:24 | P.PNCC ---
Subjective Subjective Remarks/Hospital Course: Patient is a 67-year-old [place] male with history of asthma, COPD, atrial fibrillation, hyperlipidemia, TIA 2010, hypertension who presented to the [facility] emergency department with complaints of shortness of breath. He has COPD , and uses 2L oxygen at home. Increasing complaints of shortness of breath over the last few days, in the ED he was severely short of breath and unable to provide any significant history. EMS administered 125mg of solumedrol IV and gave neb treatment prior to arrival to the ER. ER workup showed ABG with pH 7.22 PCO2 98 and PO2 96 on 2 L nasal cannula. Chest x-ray showed left lower lobe pneumonia. Patient was emergently intubated due to severe shortness of breath hypercapnic respiratory failure, I see him still severely short of breath after 3 DuoNeb breathing treatments and IV Solu-Medrol.. Started on scheduled IV Solu-Medrol and antibiotics with Rocephin and azithromycin. I evaluated the patient in the [facility] emergency department. He is intubated sedated. He is hypotensive with a map 58-60, urine output 150 mL over the last 5 hours. Creatinine has increased from 1.1-1.9. I have ordered 2 L normal saline bolus. Oxygenation and hypercapnia has improved post intubation, but patient remains critically ill SUBJ 10/20/17: Remains intubated sedated. FiO2 down to 35% but clinically has bilateral inspiratory and expiratory wheezing. Chest x-ray persistent left lower lobe pneumonia. Creatinine 1.6 today. 850 mL urine output since admission with fluid resuscitation 10/21/17: Remains intubated sedated with Precedex and fentanyl now. Potassium was 6.4. IV fluid changed to normal saline without potassium. Emergently treated with Kayexalate IV bicarb breathing treatments and IV insulin and D50. Only marginal improvement of 6.2 additional treatments ordered along with Kayexalate enema. FiO2 down to 35% but patient did not tolerate CPAP trials today pH went down to 7.27 up to CPAP, became tachycardic. Intermittently following commands. 10/22/17: Slowly improving clinically. More awake while on Precedex follows some commands. Tolerating CPAP but remains hypercapnic and slightly tachypneic on prolonged CPAP. Creatinine slightly increased to 1.7 urine output adequate. Hyperkalemia has resolved Objective Vital Signs / I&O: Vital Signs 10/21/17 17:30 10/21/17 17:45 10/21/17 18:00 Temperature Pulse Rate 86 118 H 92 H Respiratory Rate 15 22 13 Blood Pressure 130/59 L 179/76 H 151/69 H Pulse Oximetry 98 98 10/21/17 18:15 10/21/17 18:30 10/21/17 18:45 Temperature Pulse Rate 92 H 90 86 Respiratory Rate 18 15 16 Blood Pressure 145/66 H 148/68 H 152/69 H Pulse Oximetry 99 98 98 10/21/17 19:00 10/21/17 19:35 10/21/17 20:00 Temperature 98.3 F Pulse Rate 82 83 120 H Respiratory Rate 16 16 16 Blood Pressure 150/69 H 160/76 H Pulse Oximetry 98 97 94 L 10/21/17 21:00 10/21/17 22:00 10/21/17 23:00 Temperature Pulse Rate 88 84 80 Respiratory Rate 16 18 15 Blood Pressure 160/74 H 135/64 178/76 H Pulse Oximetry 98 96 100 10/21/17 23:25 10/22/17 00:00 10/22/17 01:00 Temperature 98.1 F Pulse Rate 87 89 156 H Respiratory Rate 16 16 16 Blood Pressure 165/71 H 198/98 H Pulse Oximetry 98 100 96 10/22/17 01:40 10/22/17 02:00 10/22/17 03:00 Temperature Pulse Rate 85 85 Respiratory Rate 16 16 16 Blood Pressure 136/64 152/76 H Pulse Oximetry 99 100 10/22/17 03:20 10/22/17 04:00 10/22/17 04:40 Temperature 98.3 F Pulse Rate 91 H 94 H Respiratory Rate 16 16 16 Blood Pressure 132/65 Pulse Oximetry 100 100 10/22/17 05:00 10/22/17 05:37 10/22/17 07:00 Temperature 98.1 F Pulse Rate 82 78 Respiratory Rate 16 16 15 Blood Pressure 120/57 L 189/86 H 137/58 L Pulse Oximetry 100 100 100 10/22/17 07:58 10/22/17 08:00 10/22/17 09:00 Temperature Pulse Rate 112 H 78 90 Respiratory Rate 16 18 15 Blood Pressure 168/68 H 115/57 L Pulse Oximetry 100 100 100 10/22/17 10:00 10/22/17 10:59 10/22/17 11:34 Temperature Pulse Rate 86 94 H Respiratory Rate 15 15 12 Blood Pressure 121/59 L 145/61 H Pulse Oximetry 100 100 100 10/22/17 12:00 10/22/17 13:00 10/22/17 14:00 Temperature 98.3 F Pulse Rate 106 H 82 86 Respiratory Rate 7 L 16 16 Blood Pressure 161/70 H 158/64 H 170/73 H Pulse Oximetry 98 100 100 10/22/17 14:57 10/22/17 15:00 10/22/17 15:45 Temperature 99.7 F H Pulse Rate 108 H 84 Respiratory Rate 18 16 15 Blood Pressure 206/106 H 169/73 H Pulse Oximetry 100 100 100 Intake & Output 10/21/17 10/22/17 10/22/17 18:59 06:59 18:59 Intake Total 448.9 / 448.9 2448 / 2448 233.9 / 233.9 Output Total 1235 / 1235 750 / 750 625 / 625 Balance -786.1 / -786.1 1698 / 1698 -391.1 / -391.1 Weight 69.3 kg Intake: IV 448.9 / 448.9 2448 / 2448 233.9 / 233.9 Precedex Inj 200 MCG In NS Inj 50 / 50 98 / 98 50 / 50 48 ML @ 0.2 MCG/KG/HR 3.02 mls/ hr IV.CONT TITRATE PRN Rx#: [id number] D5W/1/2NS + KCL 20 mEq Inj 1, 200 / 200 000 ML @ 100 mls/hr IV.CONT . Q10H ALIDA Rx#:[id number] Versed Inj 50 mg In 50 ml @ 2 15 / 15 MG/HR 2 mls/hr IV.CONT TITRATE PRN Rx#:[id number] NS Inj 1,000 ML @ 50 mls/hr IV. 1000 / 1000 CONT .Q20H ALIDA Rx#:[id number] Azithromycin Inj 500 MG In NS 250 / 250 Inj 250 ML @ 250 mls/hr IV.SIG Q24H ALIDA Rx#:[id number] NS Inj 1,000 ML @ Wide Open IV. 1000 / 1000 SIG BOLUS ALIDA Rx#:[id number] Rocephin Inj 1,000 MG In NS Inj 100 / 100 100 ML @ 200 mls/hr IV.SIG Q24H ALIDA Rx#:[id number] fentaNYL 10 mcg/mL Premix Drip 183.9 / 183.9 183.9 / 183.9 2,500 mcg In 250 ml @ 50 MCG/HR 5 mls/hr IV.SIG TITRATE PRN Rx #:[id number] Oral 0 / 0 Output: Urine 100 / 100 150 / 150 Urine Amount (Catheter) 1135 / 1135 750 / 750 475 / 475 Indwelling Urethral Catheter 1135 / 1135 750 / 750 475 / 475 Other: Date of Last Bowel Movement 10/22/17 Result Diagrams: 10/22/17 04:25 10/22/17 04:40 Objective Remarks: GENERAL: Intubated sedated [place] male, eyes are open spontaneously SKIN: warm/dry. HEAD: Atraumatic. Normocephalic. EYES: Pupils equal and round. ENT: Mucous membranes dry. Orotracheally intubated NECK: Trachea midline. No JVD. CARDIOVASCULAR: S1-S2 normal. No murmur appreciated. RESPIRATORY: On vent PRVC. Air entry equal bilaterally with mild expiratory wheezing. Bronchial breath sounds and crackles left lower lobe, now improved GASTROINTESTINAL: Abdomen soft, non-tender, nondistended. Hepatic and splenic margins not palpable. MUSCULOSKELETAL: No obvious deformities. No clubbing. No cyanosis. No edema. NEUROLOGICAL: Intubated sedated with Precedex and fentanyl infusions. On sedation lightening moves all extremities following commands eyes are open spontaneously Assessment and Plan - Problem List (1) Left lower lobe pneumonia Code(s): J18.1 - Lobar pneumonia, unspecified organism Status: Acute (2) Acute exacerbation of chronic obstructive pulmonary disease (COPD) Code(s): J44.1 - Chronic obstructive pulmonary disease with (acute) exacerbation Status: Acute (3) Acute kidney injury Code(s): N17.9 - Acute kidney failure, unspecified Status: Acute (4) Hypotension Code(s): I95.9 - Hypotension, unspecified Status: Acute (5) Acute hypercapnic respiratory failure Code(s): J96.02 - Acute respiratory failure with hypercapnia Status: Acute - Assessment and Plan Plan: NEURO: Metabolic encephalopathy-improved -Precedex and fentanyl for sedation and ventilator synchrony -Discontinue fentanyl today -Daily sedation vacation -Hold temazepam RESP: Acute COPD exacerbation Acute hypercapnic respiratory failure Left lower lobe pneumonia History of COPD on home oxygen -PRVC/AC, serial ABGs as indicated -Ventilator bundle. DuoNeb every 4 hours scheduled and as needed -Continue IV Solu-Medrol 60 mg every 6 hours. Budesonide inhaled -IV Rocephin and azithromycin -Hopefully can be extubated in 24 hours CV: Hypotension-resolved Now hypertensive History of atrial fibrillation -Change IV fluid to KVO -Resume home metoprolol, IV labetalol p.o. clonidine as needed for SBP more than 170 -Continue amiodarone GI: -Glucerna tube feeds, IV famotidine -Having BM : Acute kidney injury Hyperkalemia -Hyperkalemia treated with Kayexalate, IV bicarb, IV insulin and dextrose, breathing treatments -Also given IV Lasix 60 mg 1 -Hyperkalemia has resolved, check CMP in a.m. -Monitor renal function closely. Corona catheter. ID: Left lower lobe pneumonia Severe sepsis -Antibiotics with Rocephin and azithromycin -Blood and sputum cultures negative to date HEME: -Monitor CBC, coags ENDO: Hyperglycemia -Electrolyte replacement per protocol -Sliding scale insulin -Hyperkalemia treatment as above PROPH: -Bilateral lower extremity SCDs. Lovenox/famotidine LINES: -Utilize peripheral IVs, central line if needed Level 3 Patient is critically ill with severe pneumonia and sepsis, acute hypercapnic respiratory failure and renal failure. Continue aggressive supportive care with resuscitation ventilator support and broad-spectrum antibiotics. Hopefully can be extubated in the next 24-48 hours
[2017-10-22] MEDS: Montelukast 10 MG Tablet PO SCH (18:23)
[2017-10-22] MEDS ORDERED: fentaNYL 10 mcg/mL Premix Drip 2,500 MCG/250 ML BAG IV.SIG PRN (19:36)
[2017-10-22] MEDS: Dexmedetomidine Inj 1,000 MCG in Sodium Chlor 0.9% Inj 240 ML IV.CONT PRN (21:13)
[2017-10-23] MEDS: Insulin NovoLOG Aspart Correctional Sugar Inj SQ SCH ×4 (00:07→22:18)
[2017-10-23] MEDS: Propofol 1000 mg/100 ml Inj 1,000 MG/100 ML BOTTLE IV.CONT PRN (01:14)
[2017-10-23] MEDS: Azithromycin Inj 500 MG in Sodium Chlor 0.9% Inj 250 ML IV.SIG SCH (02:40)
[2017-10-23] MEDS: MethylPREDNISolone Sod Succinate Inj 125 MG/2 ML Vial IV.PUSH SCH ×3 (02:42→18:12)
[2017-10-23 05:05] LABS: Hematocrit 25.5 % (39.0-51.0); Hemoglobin 8.6 gm/dL (13.0-17.0); Mean Corpuscular HGB Conc 33.5 % (32.0-36.0); Mean Corpuscular Hemoglobin 28.5 pg (27.0-34.0); Mean Corpuscular Volume 85.1 fL (80.0-100.0); Mean Platelet Volume 8.4 fL (7.0-11.0); Platelet Count 184 th/mm3 (150-450); Red Cell Distribution Width 15.3 % (11.6-17.2); White Blood Count 6.3 th/mm3 (4.0-11.0)
--- NOTE | 2017-10-23 05:19 | XR ---
EXAM DATE: 10/23/2017 5:10 AM EDT AGE/SEX: 67 years / Male INDICATIONS: Respiratory failure CLINICAL DATA: This is the patient's subsequent encounter. Patient reports that signs and symptoms h ave been present for 4 - 6 days and indicates a pain score of Nonresponsive. MEDICAL/SURGICAL HISTORY: Non-responsive. Angioplasty. COMPARISON: [facility], CHEST 1V SINGLE AP, 10/21/2017. . FINDINGS: 2 frontal views of the chest show hyperinflated lungs bilaterally. Vague parenchymal consolidation wi thin the left lung base similar to the prior study. Heart is normal in size. Tip of the endotracheal tube 4 cm from the mika. Nasogastric tube courses off the inferior margin of the film. CONCLUSION: Unchanged left basilar consolidation. Electronically signed by: Bhanu Leahy MD 10/23/2017 5:17 AM EDT
[2017-10-23 05:21] LABS: Chloride 101 meq/L (98-107); Potassium 4.6 meq/L (3.5-5.1); Sodium 143 meq/L (136-145)
[2017-10-23 05:24] LABS: Calcium 7.9 mg/dL (8.5-10.1)
[2017-10-23] MEDS: Enoxaparin Inj 40 MG/0.4 ML Syringe SQ SCH (05:24)
[2017-10-23 05:25] LABS: Albumin 2.4 g/dL (3.4-5.0); Anion Gap 5 meq/L (5-15); Blood Urea Nitrogen 50 mg/dL (7-18); Carbon Dioxide 36.9 meq/L (21.0-32.0); Glucose,Random 233 mg/dL (74-106)
[2017-10-23 05:28] LABS: Alanine Aminotransferase 30 U/L (12-78); Aspartate Aminotransferase 20 U/L (15-37); Glomerular Filtration Rate 50 mL/min (>89)
[2017-10-23 05:29] LABS: Total Protein 6.1 g/dL (6.4-8.2)
[2017-10-23 05:31] LABS: Alkaline Phosphatase 100 U/L (45-117)
[2017-10-23] MEDS ORDERED: Labetalol HCl Inj 100 MG/20 ML Vial IV.PUSH PRN (06:21)
--- NOTE | 2017-10-23 06:31 | P.PNCC ---
Subjective Subjective Remarks/Hospital Course: Patient is a 67-year-old [place] male with history of asthma, COPD, atrial fibrillation, hyperlipidemia, TIA 2011, hypertension who presented to the [facility] emergency department with complaints of shortness of breath. He has COPD , and uses 2L oxygen at home. Increasing complaints of shortness of breath over the last few days, in the ED he was severely short of breath and unable to provide any significant history. EMS administered 125mg of solumedrol IV and gave neb treatment prior to arrival to the ER. ER workup showed ABG with pH 7.22 PCO2 98 and PO2 96 on 2 L nasal cannula. Chest x-ray showed left lower lobe pneumonia. Patient was emergently intubated due to severe shortness of breath hypercapnic respiratory failure, I see him still severely short of breath after 3 DuoNeb breathing treatments and IV Solu-Medrol.. Started on scheduled IV Solu-Medrol and antibiotics with Rocephin and azithromycin. I evaluated the patient in the [facility] emergency department. He is intubated sedated. He is hypotensive with a map 58-60, urine output 150 mL over the last 5 hours. Creatinine has increased from 1.1-1.9. I have ordered 2 L normal saline bolus. Oxygenation and hypercapnia has improved post intubation, but patient remains critically ill SUBJ 10/20/17: Remains intubated sedated. FiO2 down to 35% but clinically has bilateral inspiratory and expiratory wheezing. Chest x-ray persistent left lower lobe pneumonia. Creatinine 1.6 today. 850 mL urine output since admission with fluid resuscitation 10/21/17: Remains intubated sedated with Precedex and fentanyl now. Potassium was 6.4. IV fluid changed to normal saline without potassium. Emergently treated with Kayexalate IV bicarb breathing treatments and IV insulin and D50. Only marginal improvement of 6.2 additional treatments ordered along with Kayexalate enema. FiO2 down to 35% but patient did not tolerate CPAP trials today pH went down to 7.27 up to CPAP, became tachycardic. Intermittently following commands. 10/22/17: Slowly improving clinically. More awake while on Precedex follows some commands. Tolerating CPAP but remains hypercapnic and slightly tachypneic on prolonged CPAP. Creatinine slightly increased to 1.7 urine output adequate. Hyperkalemia has resolved. 10/23: Minimal light wheezes. Moderate dose Precedex and he follows commands, cooperative. He has such a high base excess that he will naturally retain CO2. If he continues to breathe comfortably will leave it alone, if he hyperventilates will add a carbonic anhydrase inhibitor. Creatinine down to 1.4 , it is safe to start as needed VIKRAM inhibitor at this time for IV blood pressure control. I have extubated him and his airway is widely patent without obstruction. He continues to breathe comfortably. Objective Vital Signs / I&O: Vital Signs 10/22/17 07:00 10/22/17 07:58 10/22/17 08:00 Temperature 98.1 F Pulse Rate 78 112 H 78 Respiratory Rate 15 16 18 Blood Pressure 137/58 L 168/68 H Pulse Oximetry 100 100 100 10/22/17 09:00 10/22/17 10:00 10/22/17 10:59 Temperature Pulse Rate 90 86 94 H Respiratory Rate 15 15 15 Blood Pressure 115/57 L 121/59 L 145/61 H Pulse Oximetry 100 100 100 10/22/17 11:34 10/22/17 12:00 10/22/17 13:00 Temperature 98.3 F Pulse Rate 106 H 82 Respiratory Rate 12 7 L 16 Blood Pressure 161/70 H 158/64 H Pulse Oximetry 100 98 100 10/22/17 14:00 10/22/17 14:57 10/22/17 15:00 Temperature Pulse Rate 86 108 H Respiratory Rate 16 18 16 Blood Pressure 170/73 H 206/106 H Pulse Oximetry 100 100 100 10/22/17 15:45 10/22/17 17:00 10/22/17 18:00 Temperature 99.7 F H Pulse Rate 84 84 92 H Respiratory Rate 15 11 L 15 Blood Pressure 169/73 H 168/113 H 192/95 H Pulse Oximetry 100 100 96 10/22/17 19:00 10/22/17 19:17 10/22/17 20:00 Temperature 99 F 99 F Pulse Rate 91 H 85 76 Respiratory Rate 16 16 16 Blood Pressure 208/94 H 178/78 H Pulse Oximetry 97 97 99 10/22/17 21:00 10/22/17 22:00 10/22/17 23:00 Temperature Pulse Rate 72 Respiratory Rate 16 16 16 Blood Pressure 173/78 H 189/79 H 187/77 H Pulse Oximetry 100 100 100 08/30/18 23:09 10/23/17 00:00 10/23/17 00:42 Temperature 98.9 F Pulse Rate 72 75 Respiratory Rate 16 16 16 Blood Pressure 188/88 H Pulse Oximetry 100 10/23/17 00:44 10/23/17 01:00 10/23/17 02:00 Temperature Pulse Rate 73 72 Respiratory Rate 16 15 16 Blood Pressure 189/94 H 188/89 H Pulse Oximetry 98 100 10/23/17 03:00 10/23/17 04:00 10/23/17 04:09 Temperature 98.6 F Pulse Rate 70 69 67 Respiratory Rate 16 16 16 Blood Pressure 193/87 H 187/85 H Pulse Oximetry 98 100 98 10/23/17 05:00 10/23/17 06:00 10/23/17 06:17 Temperature Pulse Rate 97 H 98 H 96 H Respiratory Rate 23 22 Blood Pressure 191/91 H 225/85 H Pulse Oximetry 97 100 Intake & Output 10/22/17 10/22/17 10/23/17 06:59 18:59 06:59 Intake Total 1448 / 1448 953.9 / 953.9 630 / 630 Output Total 750 / 750 720 / 720 1550 / 1550 Balance 698 / 698 233.9 / 233.9 -920 / -920 Weight 69.3 kg 71.2 kg Intake: IV 1448 / 1448 403.9 / 403.9 630 / 630 Precedex Inj 200 MCG In NS Inj 98 / 98 100 / 100 50 / 50 48 ML @ 0.2 MCG/KG/HR 3.02 mls/ hr IV.CONT TITRATE PRN Rx#: [id number] Diprivan 1000 mg/100 ml Inj 1, 100 / 100 000 mg In 100 ml @ 5 MCG/KG/MIN 1.812 mls/hr IV.CONT TITRATE PRN Rx#:[id number] NS Inj 1,000 ML @ 50 mls/hr IV. 1000 / 1000 CONT .Q20H ALIDA Rx#:[id number] Azithromycin Inj 500 MG In NS 250 / 250 250 / 250 Inj 250 ML @ 250 mls/hr IV.SIG Q24H ALIDA Rx#:[id number] NS Inj 1,000 ML @ Wide Open IV. 0 / 0 SIG BOLUS ALIDA Rx#:[id number] Rocephin Inj 1,000 MG In NS Inj 100 / 100 100 / 100 100 ML @ 200 mls/hr IV.SIG Q24H ALIDA Rx#:[id number] fentaNYL 10 mcg/mL Premix Drip 303.9 / 303.9 130 / 130 2,500 mcg In 250 ml @ 50 MCG/HR 5 mls/hr IV.SIG TITRATE PRN Rx #:[id number] Oral 0 / 0 Tube Feeding 490 / 490 Tube Irrigant 60 / 60 Output: Urine 150 / 150 Urine Amount (Catheter) 750 / 750 570 / 570 1550 / 1550 Indwelling Urethral Catheter 750 / 750 570 / 570 1550 / 1550 Other: Date of Last Bowel Movement 10/22/17 # Incontinent Bowel Movements 1 Result Diagrams: 10/23/17 04:50 10/23/17 04:50 Objective Remarks: GENERAL: Intubated sedated [place] male, eyes are open spontaneously SKIN: warm/dry. HEAD: Atraumatic. Normocephalic. EYES: Pupils equal and round. ENT: Mucous membranes dry. Orotracheally intubated NECK: Trachea midline. No JVD. CARDIOVASCULAR: S1-S2 normal. No murmur appreciated. RESPIRATORY: Extubated. Airway widely patent. Air entry equal bilaterally with light wheezing. GASTROINTESTINAL: Abdomen soft, non-tender, nondistended. No guarding, bowel sounds active. MUSCULOSKELETAL: No obvious deformities. No clubbing. No cyanosis. No edema lower extremities. IV site related edema upper extremities. NEUROLOGICAL: Moves 4 limbs. Language barrier prevents following commands. Cooperative on low-dose Precedex drip. Assessment and Plan - Problem List (1) Left lower lobe pneumonia Code(s): J18.1 - Lobar pneumonia, unspecified organism Status: Acute (2) Acute exacerbation of chronic obstructive pulmonary disease (COPD) Code(s): J44.1 - Chronic obstructive pulmonary disease with (acute) exacerbation Status: Acute (3) Acute kidney injury Code(s): N17.9 - Acute kidney failure, unspecified Status: Acute (4) Hypotension Code(s): I95.9 - Hypotension, unspecified Status: Acute (5) Acute hypercapnic respiratory failure Code(s): J96.02 - Acute respiratory failure with hypercapnia Status: Acute - Assessment and Plan Plan: NEURO: Metabolic encephalopathy-improved -Precedex and fentanyl for sedation and ventilator synchrony -Discontinue fentanyl today -Daily sedation vacation -Hold temazepam -Is he benzo diazepam dependent? -Continue low-dose Precedex after extubation for several hours. RESP: Acute COPD exacerbation Acute hypercapnic respiratory failure Left lower lobe pneumonia History of COPD on home oxygen -PRVC/AC, serial ABGs as indicated -Ventilator bundle. DuoNeb every 4 hours scheduled and as needed -Continue IV Solu-Medrol 60 mg every 6 hours. Budesonide inhaled -IV Rocephin and azithromycin -Extubated today, breathing comfortably thereafter. -DC ceftriaxone, taper Solu-Medrol to 40 mg every 8 hours CV: Hypotension-resolved Now hypertensive History of atrial fibrillation -Change IV fluid to KVO -Resume home metoprolol, IV labetalol p.o. clonidine as needed for SBP more than 170 -Continue amiodarone -Increase clonidine to 0.3 p.o. every 8 hours. -It is safe to add Vasotec 2.5 mg IV as needed GI: -Glucerna tube feeds, IV famotidine -Having BM : Acute kidney injury Hyperkalemia -Hyperkalemia treated with Kayexalate, IV bicarb, IV insulin and dextrose, breathing treatments -Also given IV Lasix 60 mg 1 -Hyperkalemia has resolved, check CMP in a.m. -Monitor renal function closely. Corona catheter. -Excessive base excess, consider Diamox if he hyperventilates. ID: Left lower lobe pneumonia Severe sepsis -Antibiotics with Rocephin and azithromycin -Blood and sputum cultures negative to date -No fever, no white count, radiographic findings look chronic. Will DC ceftriaxone, leaving azithromycin for COPD coverage HEME: -Monitor CBC, coags ENDO: Hyperglycemia -Electrolyte replacement per protocol -Sliding scale insulin -Hyperkalemia treatment as above PROPH: -Bilateral lower extremity SCDs. Lovenox/famotidine LINES: -Utilize peripheral IVs, central line if needed Overall impression: This appears to have been mostly a COPD exacerbation. His anxiety made weaning much more difficult. Now extubated and relatively calm on Precedex. Hopefully high-dose clonidine will substitute to some extent as Precedex is weaned. Reculture for fevers. Taper Solu-Medrol. Watch in unit, he may be a behavior problem.
[2017-10-23] MEDS ORDERED: MethylPREDNISolone Sod Succinate Inj 125 MG/2 ML Vial IV.PUSH ONE (06:46)
[2017-10-23] MEDS ORDERED: MethylPREDNISolone Sod Succinate Inj 125 MG/2 ML Vial IV.PUSH SCH ×2 (07:00)
[2017-10-23] MEDS ORDERED: RESP: Racemic Epinephrine 2.25% 0.5 ML Neb NEB PRN (07:11)
[2017-10-23] MEDS: Sod Chloride 0.9% Inj 1,000 ML IV.SIG SCH (08:19)
[2017-10-23] MEDS: Amiodarone 200 MG Tablet PO SCH (08:23)
[2017-10-23] MEDS: Sod Chloride 0.9% Inj 1,000 ML IV.CONT SCH ×3 (08:23→23:11)
[2017-10-23] MEDS: [UNRECOGNIZED DRUG - OTHER] NEB PRN (08:24)
[2017-10-23] MEDS: Metoprolol Tartrate 50 MG Tablet PO SCH ×2 (08:26→22:20)
[2017-10-23] MEDS: Famotidine 20 MG Tablet NG/OG SCH ×2 (08:26→22:19)
[2017-10-23] MEDS: Senna/Docusate Sodium 8.6/50 MG Tablet PO SCH ×2 (08:26→22:20)
[2017-10-23] MEDS: Dexmedetomidine Inj 1,000 MCG in Sodium Chlor 0.9% Inj 240 ML IV.CONT PRN (10:31)
[2017-10-23] MEDS: Montelukast 10 MG Tablet PO SCH (19:14)
[2017-10-24] MEDS: MethylPREDNISolone Sod Succinate Inj 125 MG/2 ML Vial IV.PUSH SCH ×3 (00:51→13:50)
[2017-10-24] MEDS: Insulin NovoLOG Aspart Correctional Sugar Inj SQ SCH ×4 (00:52→18:45)
[2017-10-24] MEDS: Azithromycin Inj 500 MG in Sodium Chlor 0.9% Inj 250 ML IV.SIG SCH (05:15)
[2017-10-24] MEDS: Enoxaparin Inj 40 MG/0.4 ML Syringe SQ SCH (05:19)
--- NOTE | 2017-10-24 06:41 | XR ---
EXAM DATE: 10/24/2017 6:37 AM EDT AGE/SEX: 67 years / Male INDICATIONS: Respiratory failure CLINICAL DATA: This is the patient's subsequent encounter. Patient reports that signs and symptoms h ave been present for 4 - 6 days and indicates a pain score of Nonresponsive. MEDICAL/SURGICAL HISTORY: Non-responsive. . Angioplasty COMPARISON: [facility], CHEST 1V SINGLE AP, 10/23/2017. . FINDINGS: A single AP view of the chest demonstrates no significant change. Left lower lobe intra-alveolar opac ity is noted. Diffuse coarse interstitial markings throughout both lungs. Either loculated fluid or a pical pleural thickening on the right. Heart is normal in size. Nasogastric tube courses off the infe rior margin of the film. CONCLUSION: Unchanged exam with left lower lobe infiltrate and diffuse chronic interstitial markings. Electronically signed by: Bhanu Leahy MD 10/24/2017 6:40 AM EDT
[2017-10-24 06:53] LABS: ABG Base Excess 2.8 mmol/L (-2-2); ABG PCO2 58 mmHg (38-42); ABG PO2 64 mmHg (61-120)
[2017-10-24 07:11] LABS: Baso % (Auto) 0.2 % (0.0-2.0); Eos # (Auto) 0.1 th/mm3 (0.0-0.4); Eos % (Auto) 0.7 % (0.0-4.0); Hematocrit 25.3 % (39.0-51.0); Hemoglobin 8.4 gm/dL (13.0-17.0); Lymph # (Auto) 0.2 th/mm3 (1.0-4.8); Lymph % (Auto) 2.2 % (9.0-44.0); Mean Corpuscular HGB Conc 33.2 % (32.0-36.0); Mean Corpuscular Hemoglobin 28.5 pg (27.0-34.0); Mean Corpuscular Volume 85.8 fL (80.0-100.0); Mean Platelet Volume 9.1 fL (7.0-11.0); Mono # (Auto) 0.1 th/mm3 (0.0-0.9); Mono % (Auto) 1.1 % (0.0-8.0); Neut % (Auto) 95.8 % (16.0-70.0); Platelet Count 199 th/mm3 (150-450); Red Blood Count 2.94 mil/mm3 (4.50-5.90); Red Cell Distribution Width 15.7 % (11.6-17.2); White Blood Count 9.4 th/mm3 (4.0-11.0)
[2017-10-24 07:20] LABS: Chloride 104 meq/L (98-107); Potassium 4.8 meq/L (3.5-5.1); Sodium 143 meq/L (136-145)
[2017-10-24 07:24] LABS: Albumin 2.5 g/dL (3.4-5.0); Anion Gap 9 meq/L (5-15); Calcium 7.6 mg/dL (8.5-10.1); Carbon Dioxide 29.8 meq/L (21.0-32.0); Glucose,Random 151 mg/dL (74-106); Magnesium 2.6 mg/dL (1.5-2.5)
[2017-10-24] MEDS: Sod Chloride 0.9% Inj 1,000 ML IV.CONT SCH ×3 (07:31→20:02)
[2017-10-24 07:35] LABS: Alanine Aminotransferase 32 U/L (12-78); Alkaline Phosphatase 90 U/L (45-117); Aspartate Aminotransferase 26 U/L (15-37); Blood Urea Nitrogen 75 mg/dL (7-18); Glomerular Filtration Rate 33 mL/min (>89); Phosphorus 5.4 mg/dL (2.5-4.9); Total Protein 5.9 g/dL (6.4-8.2)
[2017-10-24] MEDS: Famotidine 20 MG Tablet NG/OG SCH ×2 (08:30→20:02)
[2017-10-24] MEDS: Senna/Docusate Sodium 8.6/50 MG Tablet PO SCH ×2 (08:30→20:02)
[2017-10-24] MEDS: [UNRECOGNIZED DRUG - OTHER] NEB PRN (08:31)
[2017-10-24] MEDS: Amiodarone 200 MG Tablet PO SCH (08:32)
[2017-10-24] MEDS: Metoprolol Tartrate 50 MG Tablet PO SCH ×2 (08:33→20:01)
--- NOTE | 2017-10-24 17:50 | P.PNCC ---
Subjective Subjective Remarks/Hospital Course: Patient is a 67-year-old [place]ian male with history of asthma, COPD, atrial fibrillation, hyperlipidemia, TIA 2010, hypertension who presented to the [place] emergency department with complaints of shortness of breath. He has COPD , and uses 2L oxygen at home. Increasing complaints of shortness of breath over the last few days, in the ED he was severely short of breath and unable to provide any significant history. EMS administered 125mg of solumedrol IV and gave neb treatment prior to arrival to the ER. ER workup showed ABG with pH 7.22 PCO2 98 and PO2 96 on 2 L nasal cannula. Chest x-ray showed left lower lobe pneumonia. Patient was emergently intubated due to severe shortness of breath hypercapnic respiratory failure, I see him still severely short of breath after 3 DuoNeb breathing treatments and IV Solu-Medrol.. Started on scheduled IV Solu-Medrol and antibiotics with Rocephin and azithromycin. I evaluated the patient in the [place] emergency department. He is intubated sedated. He is hypotensive with a map 58-60, urine output 150 mL over the last 5 hours. Creatinine has increased from 1.1-1.9. I have ordered 2 L normal saline bolus. Oxygenation and hypercapnia has improved post intubation, but patient remains critically ill 10/20/17: Remains intubated sedated. FiO2 down to 35% but clinically has bilateral inspiratory and expiratory wheezing. Chest x-ray persistent left lower lobe pneumonia. Creatinine 1.6 today. 850 mL urine output since admission with fluid resuscitation 10/21/17: Remains intubated sedated with Precedex and fentanyl now. Potassium was 6.4. IV fluid changed to normal saline without potassium. Emergently treated with Kayexalate IV bicarb breathing treatments and IV insulin and D50. Only marginal improvement of 6.2 additional treatments ordered along with Kayexalate enema. FiO2 down to 35% but patient did not tolerate CPAP trials today pH went down to 7.27 up to CPAP, became tachycardic. Intermittently following commands. 10/22/17: Slowly improving clinically. More awake while on Precedex follows some commands. Tolerating CPAP but remains hypercapnic and slightly tachypneic on prolonged CPAP. Creatinine slightly increased to 1.7 urine output adequate. Hyperkalemia has resolved. 10/23: Minimal light wheezes. Moderate dose Precedex and he follows commands, cooperative. He has such a high base excess that he will naturally retain CO2. If he continues to breathe comfortably will leave it alone, if he hyperventilates will add a carbonic anhydrase inhibitor. Creatinine down to 1.4 , it is safe to start as needed VIKRAM inhibitor at this time for IV blood pressure control. I have extubated him and his airway is widely patent without obstruction. He continues to breathe comfortably. Subjective 10/24: Resting comfortably in bed in no acute distress. Creatinine currently 2.0. Discontinue VIKRAM inhibitor. Will gently hydrate and hold off acetazolamide at least overnight. CT brain ordered EEG for altered mental status.. Objective Vital Signs / I&O: Vital Signs 10/23/17 17:46 10/23/17 18:00 10/23/17 18:01 Temperature Pulse Rate 114 H 152 H 158 H Respiratory Rate 19 43 H 38 H Blood Pressure 138/70 153/99 H Pulse Oximetry 97 81 L 82 L 10/23/17 18:16 10/23/17 18:31 10/23/17 18:46 Temperature Pulse Rate 144 H 122 H 118 H Respiratory Rate 23 23 23 Blood Pressure 186/92 H 136/82 158/91 H Pulse Oximetry 99 97 99 10/23/17 19:00 10/23/17 19:08 10/23/17 19:14 Temperature Pulse Rate 116 H 120 H 115 H Respiratory Rate 22 22 22 Blood Pressure 158/91 H 117/92 H Pulse Oximetry 98 99 100 10/23/17 20:00 10/23/17 21:00 10/23/17 22:35 Temperature 100.9 F H Pulse Rate 136 H 116 H Respiratory Rate 20 14 Blood Pressure 117/92 H 137/84 Pulse Oximetry 93 L 97 92 L 10/23/17 23:00 10/23/17 23:14 10/24/17 00:02 Temperature 101.9 F H Pulse Rate 112 H 78 86 Respiratory Rate 14 16 29 H Blood Pressure 134/70 142/60 H Pulse Oximetry 93 L 86 L 10/24/17 01:00 10/24/17 01:38 10/24/17 02:00 Temperature Pulse Rate 92 H 72 Respiratory Rate 31 H 13 Blood Pressure 134/61 126/60 Pulse Oximetry 83 L 96 95 10/24/17 03:00 10/24/17 04:00 10/24/17 04:04 Temperature 98.8 F Pulse Rate 74 74 78 Respiratory Rate 14 14 20 Blood Pressure 137/56 L 145/62 H Pulse Oximetry 98 98 96 10/24/17 05:00 10/24/17 06:00 10/24/17 07:00 Temperature Pulse Rate 74 84 78 Respiratory Rate 22 37 H 28 H Blood Pressure 154/70 H 138/59 L Pulse Oximetry 97 83 L 93 L 10/24/17 07:40 10/24/17 07:53 10/24/17 08:00 Temperature 100.0 F H Pulse Rate 74 Respiratory Rate 23 Blood Pressure Pulse Oximetry 97 96 94 L 10/24/17 08:35 10/24/17 08:43 10/24/17 09:00 Temperature Pulse Rate 78 76 74 Respiratory Rate 20 16 14 Blood Pressure 133/54 L 135/55 L Pulse Oximetry 100 100 10/24/17 10:00 10/24/17 11:00 10/24/17 11:35 Temperature 98.9 F Pulse Rate 70 74 84 Respiratory Rate 14 15 18 Blood Pressure 150/59 H 153/63 H Pulse Oximetry 100 100 10/24/17 12:00 10/24/17 13:00 10/24/17 14:00 Temperature Pulse Rate 74 72 74 Respiratory Rate 13 15 16 Blood Pressure 147/61 H 155/62 H 152/68 H Pulse Oximetry 100 100 100 10/24/17 15:00 10/24/17 15:52 Temperature 98.9 F Pulse Rate 76 72 Respiratory Rate 23 23 Blood Pressure 153/62 H Pulse Oximetry 100 Intake & Output 10/23/17 10/24/17 10/24/17 18:59 06:59 18:59 Intake Total 1560 / 1560 1000 / 1000 250 / 250 Output Total 1515 / 1515 520 / 520 685 / 685 Balance 45 / 45 480 / 480 -435 / -435 Weight 70.6 kg Intake: IV 1560 / 1560 1000 / 1000 250 / 250 Precedex Inj 1,000 MCG In NS 250 / 250 Inj 240 ML @ 0.2 MCG/KG/HR 3.02 mls/hr IV.CONT TITRATE PRN Rx# :[id number] Diprivan 1000 mg/100 ml Inj 1, 60 / 60 000 mg In 100 ml @ 5 MCG/KG/MIN 1.812 mls/hr IV.CONT TITRATE PRN Rx#:[id number] NS Inj 1,000 ML @ 10 mls/hr IV. 1000 / 1000 CONT .Q24H [facility] Rx#:[id number] Azithromycin Inj 500 MG In NS 250 / 250 Inj 250 ML @ 250 mls/hr IV.SIG Q24H [facility] Rx#:[id number] NS Inj 1,000 ML @ Wide Open IV. 1000 / 1000 SIG BOLUS [facility] Rx#:[id number] fentaNYL 10 mcg/mL Premix Drip 250 / 250 2,500 mcg In 250 ml @ 50 MCG/HR 5 mls/hr IV.SIG TITRATE PRN Rx #:[id number] Oral 0 / 0 0 / 0 Tube Feeding 0 / 0 Output: Urine 600 / 600 175 / 175 35 / 35 Urine Amount (Catheter) 915 / 915 345 / 345 650 / 650 Indwelling Urethral Catheter 915 / 915 345 / 345 650 / 650 Other: Post Void Residual 50 Date of Last Bowel Movement 10/23/17 10/23/17 10/23/17 # Bowel Movements 0 Result Diagrams: 10/24/17 07:00 10/24/17 07:00 Other Results: Microbiology 10/18/17 21:10 Blood - Peripheral Aerobic Blood Culture - Final No growth in 5 days 10/18/17 21:10 Blood - Peripheral Anaerobic Blood Culture - Final No growth in 5 days 10/18/17 21:00 Blood - Peripheral Aerobic Blood Culture - Final No growth in 5 days 10/18/17 21:00 Blood - Peripheral Anaerobic Blood Culture - Final No growth in 5 days 10/19/17 02:57 Sputum - Endotracheal Gram Stain - Final 10/19/17 02:57 Sputum - Endotracheal Sputum Culture - Final Heavy growth normal respiratory [facility] Imaging: ITS Impressions Chest X-Ray 10/24/17 00:00 CONCLUSION: Unchanged exam with left lower lobe infiltrate and diffuse chronic interstitial markings. Objective Remarks: GENERAL: 67-year-old [place] male, eyes are open spontaneously SKIN: warm/dry. HEAD: Atraumatic. Normocephalic. EYES: Pupils equal and round. ENT: Mucous membranes moderately moist and pink. NG tube in place NECK: Trachea midline. No JVD. CARDIOVASCULAR: S1-S2 normal. No murmur appreciated. RESPIRATORY: Positive end expiratory wheeze. No stridor.. GASTROINTESTINAL: Abdomen soft, non-tender, nondistended. No guarding, bowel sounds active. MUSCULOSKELETAL: No obvious deformities. No clubbing. No cyanosis. No edema lower extremities. IV site related edema upper extremities. NEUROLOGICAL: Moves 4 limbs. Language barrier prevents following commands. Cooperative on low-dose Precedex drip. Assessment and Plan - Assessment and Plan Plan: NEURO/PSYCH: Toxic metabolic encephalopathy-improved -Currently on dexmedetomidine drip at 1 mcg/kg/min for agitation control -Hold temazepam 15 mg daily and mirtazapine 30 mg daily/home medications -CT brain/EEG ordered now -Acetaminophen 650 mg every 6 hours as needed fever -Oxycodone 5 mg every 6 hours as needed breakthrough pain/holding home medications hydrocodone/acetaminophen 10/325 as needed pain RESP: Acute COPD exacerbation Acute hypercapnic respiratory failure Left lower lobe pneumonia History of COPD on home oxygen -Currently on 10 L simple mask to maintain saturations greater or equal to 90% -Continue BiPAP at night -Albuterol/ipratropium aerosols every 4 hours albuterol/2 hours as needed dyspnea -Budesonide inhaled twice daily -Continue IV methylprednisolone 40 mg IV every 8 hours. -IV azithromycin has been discontinued. Ceftriaxone discontinued -Extubated 10/23 -Continue montelukast 10 mg daily CV: Hypotension-resolved Now hypertensive History of atrial fibrillation -Change IV fluid to KVO -Resume home metoprolol tartrate 50 mg twice daily, clonidine 0.3 mg 3 times daily As needed Nitropaste .-Resume amiodarone 100 mg daily -Holding home medication hydrochlorothiazide 12.5 mg daily GI: -Glucerna 1.5 tube feeds at 45 cc an hour/dietary recommendations 100 cc free water every 8 hours -IV famotidine -Having BM Renal/: Acute kidney injury Hyperkalemia -Monitor renal function closely. Corona catheter. Continue finasteride 5 mg daily when able -Excessive base excess, consider Diamox if he hyperventilates. ID: Left lower lobe pneumonia Severe sepsis -Antibiotics with azithromycin -Blood and sputum cultures negative to date -No fever, no white count, radiographic findings look chronic. Will DC ceftriaxone, leaving azithromycin for COPD coverage HEME: Normocytic anemia -Monitor CBC, coags FEN/ENDO: Hyperglycemia -Electrolyte replacement per protocol -Sliding scale insulin with aspart insulin every 6 hours -Normal saline at 84 cc an hour PROPH: -Bilateral lower extremity SCDs. Enoxaparin/famotidine LINES: -Utilize peripheral IVs, central line if needed Level 2 follow-up
[2017-10-24] MEDS ORDERED: niCARdipine Inj 25 MG in Sodium Chlor 0.9% Inj 240 ML IV.CONT PRN (17:56)
--- NOTE | 2017-10-24 18:27 | CT ---
EXAM DATE: 10/24/2017 6:22 PM EDT AGE/SEX: 67 years / Male INDICATIONS: Altered mental status CLINICAL DATA: This is the patient's initial encounter. Patient reports that signs and symptoms have been present for 1 day and indicates a pain score of Nonresponsive. MEDICAL/SURGICAL HISTORY: Chronic obstructive pulmonary disease. Hypertension. None. RADIATION DOSE: 54.89 CTDI (mGy) COMPARISON: [facility], MRI BRAIN W/O CONTRAST, 05/07/2015. . TECHNIQUE: CT of the head without contrast. Using automated exposure control and adjustment of the mA and/or kV according to patient size, radiation dose was kept as low as reasonably achievable to ob tain optimal diagnostic quality images. DICOM format image data is available electronically for revi ew and comparison. FINDINGS: There is no evidence for intracranial hemorrhage, mass effect, mass lesions, edema, or extra-axial fl uid collections. The visualized bony structures appear intact. The ventricles are normal size for t he patient's age. There are no signs of acute infarction for technique. There is mild mucoperiostea l thickening within multiple sinuses. CONCLUSION: Unremarkable study except for chronic sinusitis. Electronically signed by: Myesha Shetty MD 10/24/2017 6:26 PM EDT
[2017-10-24] MEDS: Enoxaparin Inj 30 MG/0.3 ML Syringe SQ SCH (18:45)
[2017-10-24] MEDS: Montelukast 10 MG Tablet PO SCH (18:46)
[2017-10-24] MEDS: MethylPREDNISolone Sod Succinate Inj 40 MG/ML Vial IV.PUSH SCH (18:47)
[2017-10-24 20:50] LABS: Creatinine,Urine Random 71 mg/dL (27-300)
[2017-10-24] MEDS: Dexmedetomidine Inj 1,000 MCG in Sodium Chlor 0.9% Inj 240 ML IV.CONT PRN (21:22)
[2017-10-25] MEDS: Insulin NovoLOG Aspart Correctional Sugar Inj SQ SCH ×4 (00:57→17:15)
[2017-10-25] MEDS: MethylPREDNISolone Sod Succinate Inj 40 MG/ML Vial IV.PUSH SCH ×3 (01:02→17:11)
[2017-10-25 02:53] LABS: Baso % (Auto) 0.6 % (0.0-2.0); Eos % (Auto) 0.1 % (0.0-4.0); Hematocrit 26.3 % (39.0-51.0); Hemoglobin 8.2 gm/dL (13.0-17.0); Lymph # (Auto) 0.2 th/mm3 (1.0-4.8); Lymph % (Auto) 2.8 % (9.0-44.0); Mean Corpuscular Hemoglobin 26.7 pg (27.0-34.0); Mean Corpuscular Volume 86.1 fL (80.0-100.0); Mean Platelet Volume 9.4 fL (7.0-11.0); Mono # (Auto) 0.1 th/mm3 (0.0-0.9); Mono % (Auto) 1.9 % (0.0-8.0); Neut # (Auto) 6.8 th/mm3 (1.8-7.7); Neut % (Auto) 94.6 % (16.0-70.0); Platelet Count 218 th/mm3 (150-450); Red Blood Count 3.06 mil/mm3 (4.50-5.90); Red Cell Distribution Width 14.8 % (11.6-17.2); White Blood Count 7.1 th/mm3 (4.0-11.0)
[2017-10-25 03:02] LABS: Potassium 4.2 meq/L (3.5-5.1)
--- NOTE | 2017-10-25 03:36 | XR ---
EXAM DATE: 10/25/2017 3:13 AM EDT AGE/SEX: 67 years / Male INDICATIONS: Respiratory failure. CLINICAL DATA: This is the patient's subsequent encounter. Patient reports that signs and symptoms h ave been present for 1 week and indicates a pain score of Nonresponsive. MEDICAL/SURGICAL HISTORY: . Chronic obstructive pulmonary disease. Hypertension. None. COMPARISON: [facility], CHEST 1V SINGLE AP, 10/24/2017. . FINDINGS: A single AP view of the chest demonstrates no significant change. A left lower lobe intra-alveolar op acity and diffuse bilateral interstitial opacities are unchanged. The heart is normal in size. Small left effusion. Nasogastric tube courses off the inferior margin of the film. Either pleural thickenin g or loculated fluid involving the right apex. A degenerative thoracic spine. CONCLUSION: Unchanged exam as detailed above. Electronically signed by: Bhanu Leahy MD 10/25/2017 3:35 AM EDT
[2017-10-25 05:30] LABS: Albumin 2.4 g/dL (3.4-5.0); Calcium 7.3 mg/dL (8.5-10.1); Carbon Dioxide 31.4 meq/L (21.0-32.0); Magnesium 2.6 mg/dL (1.5-2.5); Total Protein 5.5 g/dL (6.4-8.2)
--- NOTE | 2017-10-25 06:23 | P.PNCC ---
Subjective Subjective Remarks/Hospital Course: Patient is a 67-year-old [place] male with history of asthma, COPD, atrial fibrillation, hyperlipidemia, TIA 2010, hypertension who presented to the [place] emergency department with complaints of shortness of breath. He has COPD , and uses 2L oxygen at home. Increasing complaints of shortness of breath over the last few days, in the ED he was severely short of breath and unable to provide any significant history. EMS administered 125mg of solumedrol IV and gave neb treatment prior to arrival to the ER. ER workup showed ABG with pH 7.22 PCO2 98 and PO2 96 on 2 L nasal cannula. Chest x-ray showed left lower lobe pneumonia. Patient was emergently intubated due to severe shortness of breath hypercapnic respiratory failure, I see him still severely short of breath after 3 DuoNeb breathing treatments and IV Solu-Medrol.. Started on scheduled IV Solu-Medrol and antibiotics with Rocephin and azithromycin. I evaluated the patient in the [place] emergency department. He is intubated sedated. He is hypotensive with a map 58-60, urine output 150 mL over the last 5 hours. Creatinine has increased from 1.1-1.9. I have ordered 2 L normal saline bolus. Oxygenation and hypercapnia has improved post intubation, but patient remains critically ill 10/20/17: Remains intubated sedated. FiO2 down to 35% but clinically has bilateral inspiratory and expiratory wheezing. Chest x-ray persistent left lower lobe pneumonia. Creatinine 1.6 today. 850 mL urine output since admission with fluid resuscitation 10/21/17: Remains intubated sedated with Precedex and fentanyl now. Potassium was 6.4. IV fluid changed to normal saline without potassium. Emergently treated with Kayexalate IV bicarb breathing treatments and IV insulin and D50. Only marginal improvement of 6.2 additional treatments ordered along with Kayexalate enema. FiO2 down to 35% but patient did not tolerate CPAP trials today pH went down to 7.27 up to CPAP, became tachycardic. Intermittently following commands. 10/22/17: Slowly improving clinically. More awake while on Precedex follows some commands. Tolerating CPAP but remains hypercapnic and slightly tachypneic on prolonged CPAP. Creatinine slightly increased to 1.7 urine output adequate. Hyperkalemia has resolved. 10/23: Minimal light wheezes. Moderate dose Precedex and he follows commands, cooperative. He has such a high base excess that he will naturally retain CO2. If he continues to breathe comfortably will leave it alone, if he hyperventilates will add a carbonic anhydrase inhibitor. Creatinine down to 1.4 , it is safe to start as needed VIKRAM inhibitor at this time for IV blood pressure control. I have extubated him and his airway is widely patent without obstruction. He continues to breathe comfortably. Subjective 10/24: Resting comfortably in bed in no acute distress. Creatinine currently 2.0. Discontinue VIKRAM inhibitor. Will gently hydrate and hold off acetazolamide at least overnight. CT brain ordered EEG for altered mental status.. 10/25: remains altered, but arousable. bipap in place. clinically appears slightly volume overloaded. EEG with generalized slowing, mild encephalopathy. Objective Vital Signs / I&O: Vital Signs 10/24/17 07:00 10/24/17 07:40 10/24/17 07:53 Temperature Pulse Rate 78 Respiratory Rate 28 H Blood Pressure Pulse Oximetry 93 L 97 96 10/24/17 08:00 10/24/17 08:35 10/24/17 08:43 Temperature 37.8 C H Pulse Rate 74 78 76 Respiratory Rate 23 20 16 Blood Pressure 133/54 L Pulse Oximetry 94 L 100 10/24/17 09:00 10/24/17 10:00 10/24/17 11:00 Temperature 37.2 C Pulse Rate 74 70 74 Respiratory Rate 14 14 15 Blood Pressure 135/55 L 150/59 H 153/63 H Pulse Oximetry 100 100 100 10/24/17 11:35 10/24/17 12:00 10/24/17 13:00 Temperature Pulse Rate 84 74 72 Respiratory Rate 18 13 15 Blood Pressure 147/61 H 155/62 H Pulse Oximetry 100 100 10/24/17 14:00 10/24/17 15:00 10/24/17 15:52 Temperature 37.2 C Pulse Rate 74 76 72 Respiratory Rate 16 23 23 Blood Pressure 152/68 H 153/62 H Pulse Oximetry 100 100 10/24/17 16:00 10/24/17 17:00 10/24/17 18:00 Temperature Pulse Rate 70 76 76 Respiratory Rate 15 26 H 26 H Blood Pressure 142/61 H 155/62 H 156/65 H Pulse Oximetry 100 100 10/24/17 18:24 10/24/17 19:07 10/24/17 19:46 Temperature Pulse Rate 117 H Respiratory Rate 20 Blood Pressure 145/76 H 138/67 Pulse Oximetry 100 10/24/17 19:48 10/24/17 20:00 10/24/17 20:02 Temperature 37.2 C Pulse Rate 84 74 Respiratory Rate 15 Blood Pressure 126/51 L Pulse Oximetry 100 99 10/24/17 20:15 10/24/17 21:00 10/24/17 22:02 Temperature Pulse Rate 70 66 Respiratory Rate 20 24 Blood Pressure 138/79 136/58 L Pulse Oximetry 100 98 98 10/24/17 23:00 10/24/17 23:01 10/24/17 23:08 Temperature 36.6 C Pulse Rate 88 89 Respiratory Rate 18 Blood Pressure 138/59 L Pulse Oximetry 100 98 10/25/17 00:02 10/25/17 01:02 10/25/17 01:30 Temperature Pulse Rate 76 68 Respiratory Rate 20 27 H Blood Pressure 138/79 147/64 H Pulse Oximetry 100 98 100 10/25/17 02:00 10/25/17 03:02 10/25/17 04:00 Temperature Pulse Rate 107 H 98 H 99 H Respiratory Rate 22 14 18 Blood Pressure 150/67 H 143/74 H Pulse Oximetry 98 100 10/25/17 04:02 10/25/17 04:04 10/25/17 05:02 Temperature 36.6 C Pulse Rate 94 H 102 H Respiratory Rate 17 16 Blood Pressure 153/80 H 151/71 H Pulse Oximetry 99 100 99 10/25/17 06:00 Temperature Pulse Rate 103 H Respiratory Rate 24 Blood Pressure 149/69 H Pulse Oximetry 99 Intake & Output 10/24/17 10/24/17 10/25/17 06:59 18:59 06:59 Intake Total 1000 / 1000 250 / 250 336 / 336 Output Total 520 / 520 925 / 925 680 / 680 Balance 480 / 480 -675 / -675 -344 / -344 Weight 70.6 kg 69.7 kg Intake: IV 1000 / 1000 250 / 250 336 / 336 NS Inj 1,000 ML @ 84 mls/hr IV. 1000 / 1000 336 / 336 CONT .[id number] [facility] Rx#: [id number] Azithromycin Inj 500 MG In NS 250 / 250 Inj 250 ML @ 250 mls/hr IV.SIG Q24H [facility] Rx#:[id number] Oral 0 / 0 Tube Feeding 0 / 0 Output: Urine 175 / 175 35 / 35 Urine Amount (Catheter) 345 / 345 890 / 890 680 / 680 Indwelling Urethral Catheter 345 / 345 890 / 890 680 / 680 Other: Post Void Residual 50 Date of Last Bowel Movement 10/23/17 10/23/17 10/22/17 # Bowel Movements 0 0 Result Diagrams: 10/25/17 02:38 10/25/17 02:38 Objective Remarks: GENERAL: 67-year-old [place] male, eyes are open spontaneously SKIN: warm/dry. HEAD: Atraumatic. Normocephalic. EYES: Pupils equal and round. ENT: Mucous membranes moderately moist and pink. NG tube in place NECK: Trachea midline. No JVD. CARDIOVASCULAR: S1-S2 normal. No murmur appreciated. RESPIRATORY: Positive end expiratory wheeze. No stridor.. GASTROINTESTINAL: Abdomen soft, non-tender, nondistended. No guarding, bowel sounds active. MUSCULOSKELETAL: No obvious deformities. No clubbing. No cyanosis. No edema lower extremities. IV site related edema upper extremities. NEUROLOGICAL: Moves 4 limbs. Language barrier prevents following commands. Cooperative on low-dose Precedex drip. Assessment and Plan - Assessment and Plan Plan: NEURO/PSYCH: Toxic metabolic encephalopathy-improved -Currently on dexmedetomidine drip at 1 mcg/kg/min for agitation control -Hold temazepam 15 mg daily and mirtazapine 30 mg daily/home medications -CT brain/EEG ordered now -Acetaminophen 650 mg every 6 hours as needed fever -Oxycodone 5 mg every 6 hours as needed breakthrough pain/holding home medications hydrocodone/acetaminophen 10/325 as needed pain RESP: Acute COPD exacerbation Acute hypercapnic respiratory failure Left lower lobe pneumonia History of COPD on home oxygen -Currently on bipap -Continue BiPAP at night -Albuterol/ipratropium aerosols every 4 hours albuterol/2 hours as needed dyspnea -Budesonide inhaled twice daily -Continue IV methylprednisolone 40 mg IV every 8 hours. -IV azithromycin has been discontinued. Ceftriaxone discontinued -Extubated 10/23 -Continue montelukast 10 mg daily CV: Hypotension-resolved Now hypertensive History of atrial fibrillation -Change IV fluid to KVO -Resume home metoprolol tartrate 50 mg twice daily, clonidine 0.3 mg 3 times daily As needed Nitropaste .-Resume amiodarone 100 mg daily -Holding home medication hydrochlorothiazide 12.5 mg daily GI: -Glucerna 1.5 tube feeds at 45 cc an hour/dietary recommendations 100 cc free water every 8 hours -IV famotidine -Having BM Renal/: Acute kidney injury Hyperkalemia -Monitor renal function closely. Corona catheter. Continue finasteride 5 mg daily when able -Excessive base excess, consider Diamox if he hyperventilates. ID: Left lower lobe pneumonia Severe sepsis -Antibiotics with azithromycin -Blood and sputum cultures negative to date -No fever, no white count, radiographic findings look chronic. Will DC ceftriaxone, leaving azithromycin for COPD coverage HEME: Normocytic anemia -Monitor CBC, coags FEN/ENDO: Hyperglycemia -Electrolyte replacement per protocol -Sliding scale insulin with aspart insulin every 6 hours PROPH: -Bilateral lower extremity SCDs. Enoxaparin/famotidine LINES: -Utilize peripheral IVs, central line if needed
[2017-10-25] MEDS: Famotidine 20 MG Tablet NG/OG SCH ×2 (08:01→21:17)
[2017-10-25] MEDS: Metoprolol Tartrate 50 MG Tablet PO SCH ×2 (08:01→21:17)
[2017-10-25] MEDS: Amiodarone 200 MG Tablet PO SCH (08:02)
[2017-10-25] MEDS: Senna/Docusate Sodium 8.6/50 MG Tablet PO SCH ×2 (08:02→21:17)
[2017-10-25] MEDS: Finasteride 5 MG Tablet PO SCH (08:02)
[2017-10-25] MEDS: Sod Chloride 0.9% Inj 1,000 ML IV.CONT SCH (09:27)
[2017-10-25] MEDS: Dexmedetomidine Inj 1,000 MCG in Sodium Chlor 0.9% Inj 240 ML IV.CONT PRN ×2 (11:19→22:17)
--- NOTE | 2017-10-25 13:49 | US ---
EXAM DATE: 10/25/2017 1:25 PM EDT AGE/SEX: 67 years / Male INDICATIONS: Increasing BUN and Creatinine. CLINICAL DATA: This is the patient's initial encounter. Patient reports that signs and symptoms have been present for 3 days and indicates a pain score of Nonresponsive. MEDICAL/SURGICAL HISTORY: Chronic obstructive pulmonary disease. Hypertension. None. COMPARISON: No prior exams available for comparison. MEASUREMENTS: Right Kidney:__8.4 x 4.8 x 4.0 cm Left Kidney:__8.1 x 4.1 x 4.8 cm FINDINGS: Right Kidney: Normal echotexture. No mass or hydronephrosis. Left Kidney: 1.3 cm cyst at the midpole. Bladder: Corona catheter is present. Bladder decompressed. Other: Small amount of free fluid. CONCLUSION: 1. Left renal cyst, simple in appearance. 2. Trace amount of free fluid in the pelvis. Electronically signed by: Yaw Boston MD 10/25/2017 1:47 PM EDT
[2017-10-25] MEDS: Montelukast 10 MG Tablet PO SCH (17:11)
[2017-10-25] MEDS: Enoxaparin Inj 30 MG/0.3 ML Syringe SQ SCH (17:11)
--- NOTE | 2017-10-25 18:30 | MG ---
cc: Thien Ma MD, PhD TEST NUMBER: [id number] TECHNIQUE: A 17-channel EEG. DESCRIPTION: The background rhythm reveals generalized slowing in the theta range at 6 Hz. Amplitude is roughly 10-20 microvolts. A fair amount of muscle artifact is identified. There are no lateralizing features identified. No epileptiform features are seen. Hyperventilation was not performed. Photic stimulation was done in a stepwise fashion with no significant driving response. INTERPRETATION: Abnormal study consistent with mild encephalopathy. Thien Ma MD, PhD PAULETTE/ulices , 04:44 PM , 04:47 PM
[2017-10-26] MEDS: Insulin NovoLOG Aspart Correctional Sugar Inj SQ SCH ×4 (02:44→18:01)
--- NOTE | 2017-10-26 06:35 | P.PNCC ---
Subjective Subjective Remarks/Hospital Course: Patient is a 67-year-old [place] male with history of asthma, COPD, atrial fibrillation, hyperlipidemia, TIA 2010, hypertension who presented to the [facility] emergency department with complaints of shortness of breath. He has COPD , and uses 2L oxygen at home. Increasing complaints of shortness of breath over the last few days, in the ED he was severely short of breath and unable to provide any significant history. EMS administered 125mg of solumedrol IV and gave neb treatment prior to arrival to the ER. ER workup showed ABG with pH 7.22 PCO2 98 and PO2 96 on 2 L nasal cannula. Chest x-ray showed left lower lobe pneumonia. Patient was emergently intubated due to severe shortness of breath hypercapnic respiratory failure, I see him still severely short of breath after 3 DuoNeb breathing treatments and IV Solu-Medrol.. Started on scheduled IV Solu-Medrol and antibiotics with Rocephin and azithromycin. I evaluated the patient in the [facility] emergency department. He is intubated sedated. He is hypotensive with a map 58-60, urine output 150 mL over the last 5 hours. Creatinine has increased from 1.1-1.9. I have ordered 2 L normal saline bolus. Oxygenation and hypercapnia has improved post intubation, but patient remains critically ill 10/20/17: Remains intubated sedated. FiO2 down to 35% but clinically has bilateral inspiratory and expiratory wheezing. Chest x-ray persistent left lower lobe pneumonia. Creatinine 1.6 today. 850 mL urine output since admission with fluid resuscitation 10/21/17: Remains intubated sedated with Precedex and fentanyl now. Potassium was 6.4. IV fluid changed to normal saline without potassium. Emergently treated with Kayexalate IV bicarb breathing treatments and IV insulin and D50. Only marginal improvement of 6.2 additional treatments ordered along with Kayexalate enema. FiO2 down to 35% but patient did not tolerate CPAP trials today pH went down to 7.27 up to CPAP, became tachycardic. Intermittently following commands. 10/22/17: Slowly improving clinically. More awake while on Precedex follows some commands. Tolerating CPAP but remains hypercapnic and slightly tachypneic on prolonged CPAP. Creatinine slightly increased to 1.7 urine output adequate. Hyperkalemia has resolved. 10/23: Minimal light wheezes. Moderate dose Precedex and he follows commands, cooperative. He has such a high base excess that he will naturally retain CO2. If he continues to breathe comfortably will leave it alone, if he hyperventilates will add a carbonic anhydrase inhibitor. Creatinine down to 1.4 , it is safe to start as needed VIKRAM inhibitor at this time for IV blood pressure control. I have extubated him and his airway is widely patent without obstruction. He continues to breathe comfortably. Subjective 10/24: Resting comfortably in bed in no acute distress. Creatinine currently 2.0. Discontinue VIKRAM inhibitor. Will gently hydrate and hold off acetazolamide at least overnight. CT brain ordered EEG for altered mental status.. 10/25: remains altered, but arousable. bipap in place. clinically appears slightly volume overloaded. EEG with generalized slowing, mild encephalopathy. 10/26: Patient is alert awake, there is a language barrier since his [place]ian is very limited. He is on facemask nonrebreather of BiPAP today. Some accessory muscles in use for breathing. Per nursing report there is no change in respiratory effort. Objective Vital Signs / I&O: Vital Signs 10/25/17 07:02 10/25/17 07:23 10/25/17 07:27 Temperature Pulse Rate 110 H 95 H Respiratory Rate 25 H 18 Blood Pressure 136/81 Pulse Oximetry 95 100 10/25/17 07:47 10/25/17 08:00 10/25/17 08:02 Temperature 100.3 F H Pulse Rate 110 H 117 H 108 H Respiratory Rate 24 20 Blood Pressure 143/79 H 142/81 H Pulse Oximetry 98 100 10/25/17 09:02 10/25/17 10:02 10/25/17 10:29 Temperature 98.1 F Pulse Rate 96 H 96 H Respiratory Rate 16 15 Blood Pressure 140/75 141/73 H Pulse Oximetry 100 100 10/25/17 10:50 10/25/17 10:58 10/25/17 11:02 Temperature Pulse Rate 89 96 H Respiratory Rate 22 22 Blood Pressure 157/68 H Pulse Oximetry 100 100 10/25/17 11:14 10/25/17 11:19 10/25/17 12:34 Temperature 99.2 F Pulse Rate 104 H 74 Respiratory Rate 36 H 22 Blood Pressure 141/80 H 144/56 H Pulse Oximetry 97 92 L 97 10/25/17 13:00 10/25/17 14:00 10/25/17 15:00 Temperature Pulse Rate 76 82 76 Respiratory Rate 16 26 H 23 Blood Pressure 148/63 H 121/62 145/59 H Pulse Oximetry 98 95 96 10/25/17 15:17 10/25/17 16:39 10/25/17 16:41 Temperature 98.5 F Pulse Rate 75 76 74 Respiratory Rate 20 17 15 Blood Pressure 135/59 L 140/54 L Pulse Oximetry 99 100 10/25/17 17:02 10/25/17 18:02 10/25/17 19:00 Temperature Pulse Rate 80 74 115 H Respiratory Rate 25 H 18 22 Blood Pressure 132/70 124/49 L 128/69 Pulse Oximetry 98 99 98 10/25/17 20:00 10/25/17 20:02 10/25/17 21:02 Temperature 98.2 F Pulse Rate 104 H 104 H 114 H Respiratory Rate 17 25 H Blood Pressure 115/56 L 116/64 Pulse Oximetry 100 99 10/25/17 21:10 10/25/17 21:30 10/25/17 22:00 Temperature Pulse Rate 96 H Respiratory Rate 18 Blood Pressure 135/67 Pulse Oximetry 98 95 100 10/25/17 23:00 10/26/17 00:20 10/26/17 00:25 Temperature 99.1 F Pulse Rate 98 H 107 H Respiratory Rate 20 Blood Pressure 134/62 140/65 Pulse Oximetry 100 99 100 10/26/17 01:02 10/26/17 01:40 10/26/17 02:00 Temperature Pulse Rate 108 H 101 H 108 H Respiratory Rate 25 H 17 20 Blood Pressure 150/59 H 110/68 Pulse Oximetry 100 99 10/26/17 03:02 10/26/17 03:35 10/26/17 04:02 Temperature 98.7 F Pulse Rate 124 H 114 H Respiratory Rate 27 H 23 Blood Pressure 125/65 133/57 L Pulse Oximetry 98 98 99 10/26/17 04:35 10/26/17 05:02 10/26/17 06:00 Temperature Pulse Rate 115 H 122 H 116 H Respiratory Rate 24 24 16 Blood Pressure 147/70 H 134/61 Pulse Oximetry 100 110 H 10/26/17 06:02 Temperature Pulse Rate 114 H Respiratory Rate 46 H Blood Pressure 134/61 Pulse Oximetry 100 Intake & Output 10/25/17 10/25/17 10/26/17 06:59 18:59 06:59 Intake Total 336 / 336 4159 / 4159 250 / 250 Output Total 680 / 680 2305 / 2305 1095 / 1095 Balance -344 / -344 1854 / 1854 -845 / -845 Weight 69.7 kg 69.6 kg Intake: IV 336 / 336 1950 / 1950 250 / 250 Precedex Inj 1,000 MCG In NS 250 / 250 250 / 250 Inj 240 ML @ 0.2 MCG/KG/HR 3.02 mls/hr IV.CONT TITRATE PRN Rx# :[id number] NS Inj 1,000 ML @ 84 mls/hr IV. 336 / 336 1700 / 1700 CONT .[id number] ALIDA Rx#: [id number] NS Inj 1,000 ML @ Wide Open IV. 0 / 0 SIG BOLUS ALIDA Rx#:[id number] Oral 0 / 0 Tube Feeding 900 / 900 Other 1309 / 1309 Output: Urine 35 / 35 355 / 355 Urine Amount (Catheter) 680 / 680 2270 / 2270 740 / 740 Indwelling Urethral Catheter 680 / 680 2270 / 2270 740 / 740 Other: Post Void Residual 50 Date of Last Bowel Movement 10/22/17 10/22/17 10/24/17 # Bowel Movements 0 0 # Incontinent Bowel Movements 1 Result Diagrams: 10/25/17 02:38 10/25/17 02:38 Objective Remarks: GENERAL: 67-year-old [place]ian male, eyes are open spontaneously SKIN: warm/dry. HEAD: Atraumatic. Normocephalic. EYES: Pupils equal and round. ENT: Mucous membranes moderately moist and pink. NG tube in place NECK: Trachea midline. No JVD. CARDIOVASCULAR: S1-S2 normal. No murmur appreciated. RESPIRATORY: Positive end expiratory wheeze. No stridor. Some accessory muscle use. GASTROINTESTINAL: Abdomen soft, non-tender, nondistended. No guarding, bowel sounds active. MUSCULOSKELETAL: No obvious deformities. No clubbing. No cyanosis. No edema lower extremities. IV site related edema upper extremities. NEUROLOGICAL: Moves 4 limbs. Language barrier prevents following commands. Cooperative on low-dose Precedex drip. Assessment and Plan - Assessment and Plan Plan: NEURO/PSYCH: Toxic metabolic encephalopathy -Continues to improve -Still requires low-dose of on dexmedetomidine drip for agitation control -Hold temazepam 15 mg daily and mirtazapine 30 mg daily/home medications -CT brain/EEG reviewed, no significant findings -Acetaminophen 650 mg every 6 hours as needed fever -Oxycodone 5 mg every 6 hours as needed breakthrough pain/holding home medications hydrocodone/acetaminophen 10/325 as needed pain RESP: Acute COPD exacerbation Acute hypercapnic respiratory failure Left lower lobe pneumonia History of COPD on home oxygen -Currently on bipap PRN -Continue BiPAP at night -Albuterol/ipratropium aerosols every 4 hours albuterol/2 hours as needed dyspnea -Budesonide inhaled twice daily -Continue IV methylprednisolone 40 mg IV every 8 hours. -IV azithromycin has been discontinued. Ceftriaxone discontinued -Extubated 10/23 -Continue montelukast 10 mg daily CV: Hypotension-resolved Now hypertensive History of atrial fibrillation -Change IV fluid to KVO -Resume home metoprolol tartrate 50 mg twice daily, clonidine 0.3 mg 3 times daily As needed Nitropaste .-Resume amiodarone 100 mg daily -Holding home medication hydrochlorothiazide 12.5 mg daily GI: -Glucerna 1.5 tube feeds at 45 cc an hour/dietary recommendations 100 cc free water every 8 hours -IV famotidine -Having BM Renal/: Acute kidney injury Hyperkalemia -Monitor renal function closely. Corona catheter. Continue finasteride 5 mg daily when able -DC Lasix, no signs of fluid overload on chest x-ray ID: Left lower lobe pneumonia Severe sepsis -Resolved -Of antibiotics -Blood and sputum cultures negative to date -No fever, no white count, radiographic findings look chronic. HEME: Normocytic anemia -Monitor CBC, coags FEN/ENDO: Hyperglycemia -Electrolyte replacement per protocol -Sliding scale insulin with aspart insulin every 6 hours PROPH: -Bilateral lower extremity SCDs. Enoxaparin/famotidine LINES: -Utilize peripheral IVs, central line if needed Level 2
[2017-10-26] MEDS: MethylPREDNISolone Sod Succinate Inj 40 MG/ML Vial IV.PUSH SCH ×3 (06:38→17:59)
[2017-10-26] MEDS: Amiodarone 200 MG Tablet PO SCH (08:36)
[2017-10-26] MEDS: Metoprolol Tartrate 50 MG Tablet PO SCH ×2 (08:36→20:29)
[2017-10-26] MEDS: Famotidine 20 MG Tablet NG/OG SCH ×2 (08:36→20:29)
[2017-10-26] MEDS: Senna/Docusate Sodium 8.6/50 MG Tablet PO SCH ×2 (08:37→20:29)
[2017-10-26] MEDS: Finasteride 5 MG Tablet PO SCH (08:37)
[2017-10-26] MEDS: Dexmedetomidine Inj 1,000 MCG in Sodium Chlor 0.9% Inj 240 ML IV.CONT PRN (12:47)
--- NOTE | 2017-10-26 16:17 | P.DIET ---
Nutritional Evaluation Type of nutrition evaluation: follow-up Nutrition consult regarding: Tube Feeding Objective - Diagnosis Hypercapnia, Resp Failure - Objective [place] body weight: 67.3 kg % IBW: 88 Body Weight Used for Calculations: Actual Energy Needs - Lower Range (kCal/kg): 27 Energy Needs - Upper Range (kCal/kg): 32 Lower Limit kCal/kg (kCals): 1,598 Upper Limit kCal/kg (kCals): 1,894 Lower Limit Protein Factor (Grams per Kg): 1.1 Upper Limit Protein Factor (Grams per Kg): 1.4 Lower Protein Needs (Protein): 65 Upper Protein Needs (Protein): 83 Dietitian Reviewed in Medical Record: Curent medications, Intake & Output, Labs , Medical history, Tube feeding Diet Order: TF'ing ONLY: Glucerna 1.5 @ goal rate 45ml/hr Speech Therapy Recommendations: Yes (NPO) Objective Comments: PMH: COPD, Asthma, AFib, hyperlipidemia, HTN, TIA 2010, Insomnia POC Glucose 309, 251, 243; BUN 78, Creatinine 1.90, estGFR 35 Meds Include: Novolog SSI, Solumedrol LBM 10/26, +UOP 3010ml Feeding - Current Tube Feeding Tube Feeding Product: Glucerna 1.5 Tube Feeding Rate: 45 Tube Feeding Route: nasogastric Current kCals Provided by Tube Feedin,620 Current Protein Provided by Tube Feeding (gPRO): 89 Current Free H2O Provided (m/l): 820 Assessment Assessment: Pt continues at nutritional risk r/t need for TF'ing. Extubated 10/23. Pt remains NPO per ST. Pt tolerating TF'ing w/ Glucerna 1.5 @ Rec goal rate 45ml/ hr. Labs reviewed-monitor glucose and renal labs. Wt changes noted. Additional Recs to follow r/t Clinical Course. Recommendations: 1. TF'ing w/ Glucerna 1.5 @ Rec goal rate 45ml/hr 2. Monitor ST Recs 3. Additional Recs to follow r/t Clinical Course Dietitian to Monitor: Lab values, Renal labs, Glucose level, Intake & Output, Tube feeding tolerance, Weight change, Swallow recommendations, Medical course
[2017-10-26] MEDS: Montelukast 10 MG Tablet PO SCH (18:00)
[2017-10-26] MEDS: Enoxaparin Inj 30 MG/0.3 ML Syringe SQ SCH (18:00)
--- NOTE | 2017-10-26 18:51 | MB ---
cc: Gaurav Lepe MD, Jan MD DATE: 10/26/2017 REQUESTING PHYSICIAN: Art Berumen MD REASON FOR CONSULTATION: COPD and respiratory failure. HISTORY OF PRESENT ILLNESS: Mr. Moore is a 67-year-old [place] male with history of COPD, atrial fibrillation, TIA and hypertension. The patient was admitted to the hospital with worsening of his shortness of breath and he was intubated. Now, he has been extubated and is on Ventimask. He is on a Precedex drip. He has mild shortness of breath. He denies any fever or chills. No night sweats. No chest pain. LABORATORY EVALUATION: Revealed WBC count 7.1, hemoglobin 8.2, hematocrit 26.3, MCV 86, platelet count 218. INR is 1.0. Blood gas done on 10/24/2017 on 40% BiPAP, pH of 7.31, pCO2 of 58, pO2 of 64, bicarbonate 29. His BMP shows sodium 149, potassium 4.2, chloride 109, CO2 of 31, BUN 17, creatinine 1.90, glucose 222. His chest x-ray shows a small loculated pleural effusion. PAST MEDICAL HISTORY: Significant for a history of COPD, atrial fibrillation, hypertension, TIA. MEDICATIONS: He is currently takin. [place] 5/325 q.4 hours p.r.n. 2. Albuterol and Atrovent nebulized treatments. 3. Amiodarone 100 mg a day. 4. Pulmicort Respules 0.5 mg twice a day. 5. Clonidine 0.1 mg q.6 hours p.r.n. 6. Precedex for sedation. 7. Lovenox 30 mg a day. 8. Famotidine 10 mg twice a day. 9. Finasteride 5 mg a day. 10. He is on insulin coverage. 11. Solu-Medrol 40 mg q.8 hours. 12. Metoprolol 50 mg twice a day. 13. Singulair 10 mg a day. 14. Nitroglycerin 2 inch topical. 15. Oxycodone for pain. 16. Racemic epinephrine p.r.n. ALLERGIES: NO KNOWN DRUG ALLERGIES. FAMILY HISTORY: Not available or noncontributory. PHYSICAL EXAMINATION: GENERAL: Elderly male on Ventimask, mildly short of breath. VITAL SIGNS: Blood pressure 122/62, heart rate 101, respirations 17, temperature 98.1. HEENT: Pupils are equal and reactive to light. Oral mucosa and nasal mucosa normal. NECK: Supple. No JVD noted. CHEST: He has bilateral expiratory rhonchi and has basilar rales. CARDIOVASCULAR: S1, S2 normal. ABDOMEN: Benign. EXTREMITIES: 1+ pedal edema. IMPRESSION: 1. Respiratory failure, status post extubation. 2. Chronic obstructive pulmonary disease. 3. Atrial fibrillation. 4. History of transient ischemic attack. 5. Hyperglycemia. PLAN: We will keep him on BiPAP at night and give him aerosol treatments. He has thick mucus and I will start him on Mucomyst nebulizer treatments and encourage him to use Acapella. Continue IV Solu-Medrol. Monitor blood sugar. Further treatment depending on his course in the hospital. Thank you, Dr. Berumen, for this consult. MD DEIDRE Mathews/ulices , 06:18 PM , 06:27 PM
[2017-10-27] MEDS: Insulin NovoLOG Aspart Correctional Sugar Inj SQ SCH ×4 (00:40→18:08)
[2017-10-27] MEDS: MethylPREDNISolone Sod Succinate Inj 40 MG/ML Vial IV.PUSH SCH ×3 (02:11→18:03)
[2017-10-27] MEDS: Dexmedetomidine Inj 1,000 MCG in Sodium Chlor 0.9% Inj 240 ML IV.CONT PRN ×2 (02:12→18:00)
[2017-10-27 05:09] LABS: Baso % (Auto) 0.1 % (0.0-2.0); Eos % (Auto) 0.1 % (0.0-4.0); Hematocrit 34.3 % (39.0-51.0); Hemoglobin 10.7 gm/dL (13.0-17.0); Lymph # (Auto) 0.2 th/mm3 (1.0-4.8); Lymph % (Auto) 1.1 % (9.0-44.0); Mean Corpuscular HGB Conc 31.2 % (32.0-36.0); Mean Corpuscular Hemoglobin 27.2 pg (27.0-34.0); Mean Corpuscular Volume 87.1 fL (80.0-100.0); Mean Platelet Volume 8.4 fL (7.0-11.0); Mono # (Auto) 0.7 th/mm3 (0.0-0.9); Neut # (Auto) 15.6 th/mm3 (1.8-7.7); Neut % (Auto) 94.7 % (16.0-70.0); Platelet Count 205 th/mm3 (150-450); Red Blood Count 3.94 mil/mm3 (4.50-5.90); Red Cell Distribution Width 15.2 % (11.6-17.2); White Blood Count 16.5 th/mm3 (4.0-11.0)
[2017-10-27 05:20] LABS: Chloride 107 meq/L (98-107); Potassium 4.2 meq/L (3.5-5.1); Sodium 149 meq/L (136-145)
[2017-10-27 05:28] LABS: Albumin 2.9 g/dL (3.4-5.0); Anion Gap 3 meq/L (5-15); Blood Urea Nitrogen 66 mg/dL (7-18); Calcium 8.2 mg/dL (8.5-10.1); Glucose,Random 197 mg/dL (74-106); Magnesium 2.6 mg/dL (1.5-2.5)
[2017-10-27 05:29] LABS: Alanine Aminotransferase 31 U/L (12-78); Aspartate Aminotransferase 19 U/L (15-37); Glomerular Filtration Rate 43 mL/min (>89); Phosphorus 2.9 mg/dL (2.5-4.9)
[2017-10-27 05:33] LABS: Alkaline Phosphatase 90 U/L (45-117); Total Protein 6.3 g/dL (6.4-8.2)
--- NOTE | 2017-10-27 06:19 | P.PNCC ---
Subjective Subjective Remarks/Hospital Course: Patient is a 67-year-old [place] male with history of asthma, COPD, atrial fibrillation, hyperlipidemia, TIA 2010, hypertension who presented to the [facility] emergency department with complaints of shortness of breath. He has COPD , and uses 2L oxygen at home. Increasing complaints of shortness of breath over the last few days, in the ED he was severely short of breath and unable to provide any significant history. EMS administered 125mg of solumedrol IV and gave neb treatment prior to arrival to the ER. ER workup showed ABG with pH 7.22 PCO2 98 and PO2 96 on 2 L nasal cannula. Chest x-ray showed left lower lobe pneumonia. Patient was emergently intubated due to severe shortness of breath hypercapnic respiratory failure, I see him still severely short of breath after 3 DuoNeb breathing treatments and IV Solu-Medrol.. Started on scheduled IV Solu-Medrol and antibiotics with Rocephin and azithromycin. I evaluated the patient in the [facility] emergency department. He is intubated sedated. He is hypotensive with a map 58-60, urine output 150 mL over the last 5 hours. Creatinine has increased from 1.1-1.9. I have ordered 2 L normal saline bolus. Oxygenation and hypercapnia has improved post intubation, but patient remains critically ill 10/20/17: Remains intubated sedated. FiO2 down to 35% but clinically has bilateral inspiratory and expiratory wheezing. Chest x-ray persistent left lower lobe pneumonia. Creatinine 1.6 today. 850 mL urine output since admission with fluid resuscitation 10/21/17: Remains intubated sedated with Precedex and fentanyl now. Potassium was 6.4. IV fluid changed to normal saline without potassium. Emergently treated with Kayexalate IV bicarb breathing treatments and IV insulin and D50. Only marginal improvement of 6.2 additional treatments ordered along with Kayexalate enema. FiO2 down to 35% but patient did not tolerate CPAP trials today pH went down to 7.27 up to CPAP, became tachycardic. Intermittently following commands. 10/22/17: Slowly improving clinically. More awake while on Precedex follows some commands. Tolerating CPAP but remains hypercapnic and slightly tachypneic on prolonged CPAP. Creatinine slightly increased to 1.7 urine output adequate. Hyperkalemia has resolved. 10/23: Minimal light wheezes. Moderate dose Precedex and he follows commands, cooperative. He has such a high base excess that he will naturally retain CO2. If he continues to breathe comfortably will leave it alone, if he hyperventilates will add a carbonic anhydrase inhibitor. Creatinine down to 1.4 , it is safe to start as needed VIKRAM inhibitor at this time for IV blood pressure control. I have extubated him and his airway is widely patent without obstruction. He continues to breathe comfortably. Subjective 10/24: Resting comfortably in bed in no acute distress. Creatinine currently 2.0. Discontinue VIKRAM inhibitor. Will gently hydrate and hold off acetazolamide at least overnight. CT brain ordered EEG for altered mental status.. 10/25: remains altered, but arousable. bipap in place. clinically appears slightly volume overloaded. EEG with generalized slowing, mild encephalopathy. 10/26: Patient is alert awake, there is a language barrier since his [place]er is very limited. He is on facemask nonrebreather of BiPAP today. Some accessory muscles in use for breathing. Per nursing report there is no change in respiratory effort. 10/27: Objective Vital Signs / I&O: Vital Signs 10/26/17 07:02 10/26/17 07:55 10/26/17 07:57 Temperature 99.7 F H Pulse Rate 118 H 119 H Respiratory Rate 33 H 25 H Blood Pressure 141/78 H Pulse Oximetry 83 L 93 L 10/26/17 08:00 10/26/17 08:02 10/26/17 09:02 Temperature 99.2 F Pulse Rate 119 H 122 H 106 H Respiratory Rate 33 H 20 Blood Pressure 136/73 104/59 L Pulse Oximetry 95 100 10/26/17 10:02 10/26/17 11:02 10/26/17 11:20 Temperature Pulse Rate 100 H 100 H 97 H Respiratory Rate 21 17 16 Blood Pressure 115/63 120/60 Pulse Oximetry 99 100 10/26/17 12:00 10/26/17 12:02 10/26/17 13:02 Temperature 97.9 F Pulse Rate 110 H 112 H Respiratory Rate 18 27 H 19 Blood Pressure 128/62 124/60 Pulse Oximetry 99 97 10/26/17 14:02 10/26/17 15:02 10/26/17 15:10 Temperature Pulse Rate 114 H 116 H 116 H Respiratory Rate 17 25 H 27 H Blood Pressure 119/61 138/64 Pulse Oximetry 100 98 10/26/17 16:00 10/26/17 17:02 10/26/17 18:02 Temperature 98.1 F Pulse Rate 126 H 116 H 101 H Respiratory Rate 24 18 17 Blood Pressure 140/49 L 108/55 L 122/62 Pulse Oximetry 95 100 100 10/26/17 18:24 10/26/17 19:02 10/26/17 19:53 Temperature Pulse Rate 118 H 115 H Respiratory Rate 26 H 24 Blood Pressure 138/74 Pulse Oximetry 95 95 10/26/17 20:00 10/26/17 20:02 10/26/17 20:23 Temperature 98.2 F Pulse Rate 121 H 114 H Respiratory Rate 26 H Blood Pressure 156/93 H Pulse Oximetry 100 96 10/26/17 20:45 10/26/17 21:00 10/26/17 22:02 Temperature Pulse Rate 112 H 100 H Respiratory Rate 26 H 18 Blood Pressure 114/56 L 117/52 L Pulse Oximetry 98 96 98 10/26/17 22:45 10/26/17 23:02 10/26/17 23:15 Temperature Pulse Rate 104 H 104 H 102 H Respiratory Rate 21 23 18 Blood Pressure 125/54 L 118/59 L Pulse Oximetry 95 92 L 95 10/27/17 00:00 10/27/17 03:22 10/27/17 03:57 Temperature Pulse Rate 117 H Respiratory Rate 24 22 Blood Pressure Pulse Oximetry 93 L Intake & Output 10/26/17 10/26/17 10/27/17 06:59 18:59 06:59 Intake Total 250 / 250 250 / 250 1150 / 1150 Output Total 1095 / 1095 880 / 880 1700 / 1700 Balance -845 / -845 -630 / -630 -550 / -550 Weight 69.6 kg 68.3 kg Intake: IV 250 / 250 250 / 250 250 / 250 Precedex Inj 1,000 MCG In NS 250 / 250 250 / 250 250 / 250 Inj 240 ML @ 0.2 MCG/KG/HR 3.02 mls/hr IV.CONT TITRATE PRN Rx# :[id number] Oral 0 / 0 Water Bolus Amount 900 / 900 Output: Urine 355 / 355 Urine Amount (Catheter) 740 / 740 880 / 880 1700 / 1700 Indwelling Urethral Catheter 740 / 740 880 / 880 1700 / 1700 Other: Date of Last Bowel Movement 10/24/17 10/26/17 10/27/17 # Bowel Movements 1 Result Diagrams: 10/27/17 04:25 10/27/17 04:25 Objective Remarks: GENERAL: 67-year-old elderly male, sleepy but arousable SKIN: warm/dry. Skin tears to bilateral forearms are bandaged, clean/ dry/ intact HEAD: Atraumatic. Normocephalic. EYES: Pupils equal and round. ENT: NG tube in place NECK: Trachea midline. No JVD. EJ present in left neck. CARDIOVASCULAR: Irregularly irregular RESPIRATORY: Some accessory muscle use, prolonged expiratory phase, no respiratory distress, tolerating bipap without difficulty GASTROINTESTINAL: Abdomen soft, non-tender, non-distended. MUSCULOSKELETAL: No obvious deformities. No clubbing. No cyanosis. NEUROLOGICAL: Opens eyes to voice, RASS -1, calm and cooperative with exam, nods / shakes head appropriately to questions but voice is too soft to hear verbal answers to questions. Assessment and Plan - Assessment and Plan Plan: NEURO/PSYCH: Toxic metabolic encephalopathy -Continues to improve, delirium precautions, maintain good sleep/ wake hygiene ( lights on during the day, TV off/ lights off at night, decrease background noise while sleeping, minimal to no naps and OOB as tolerated during the daytime ) -Still requires low-dose of on dexmedetomidine drip for agitation control ( decreased from 1.3 to 1 during my assessment) -Hold temazepam 15 mg daily and mirtazapine 30 mg daily/home medications -CT brain/EEG reviewed, no significant findings -Acetaminophen 650 mg every 6 hours as needed fever -Oxycodone 5 mg every 6 hours as needed breakthrough pain/holding home medications hydrocodone/acetaminophen 10/325 as needed pain RESP: Acute COPD exacerbation Acute hypercapnic respiratory failure Left lower lobe pneumonia History of COPD on home oxygen -Pulmonology consult appreciated, continuing nebs and mucomyst -Currently on bipap PRN and qhs, trial off bipap today -Albuterol/ipratropium aerosols every 4 hours albuterol/2 hours as needed dyspnea -Budesonide inhaled twice daily -Continue IV methylprednisolone 40 mg IV every 8 hours. -Extubated 10/23 -Continue montelukast 10 mg daily CV: Hypotension-resolved Now hypertensive History of atrial fibrillation -Resume home metoprolol tartrate 50 mg twice daily, clonidine 0.3 mg 3 times daily As needed Nitropaste -Continue amiodarone 100 mg daily -Holding home medication hydrochlorothiazide 12.5 mg daily until renal function completely recovers GI: -Glucerna 1.5 tube feeds at 45 cc an hour/dietary recommendations 100 cc free water every 8 hours -IV famotidine -Having BM Renal/: Acute kidney injury Hyperkalemia -Monitor renal function closely; creatinine continues to trend down (1.9--> 1.6) -D/C Corona catheter. Continue finasteride 5 mg daily when able -D/C Lasix, no signs of fluid overload on chest x-ray ID: Left lower lobe pneumonia Severe sepsis -Resolved -Leukocytosis trending up, likely secondary to steroids HEME: -Normocytic anemia, improving FEN/ENDO: Hyperglycemia -Electrolyte replacement per protocol -Sliding scale insulin with aspart insulin every 6 hours, will increase algorithm PROPH: -Bilateral lower extremity SCDs. Enoxaparin/famotidine LINES: -Peripheral IVs Level 2
--- NOTE | 2017-10-27 06:38 | XR ---
EXAM DATE: 10/27/2017 6:33 AM EDT AGE/SEX: 67 years / Male INDICATIONS: Shortness of breath. CLINICAL DATA: This is the patient's subsequent encounter. Patient reports that signs and symptoms h ave been present for 1 week and indicates a pain score of Nonresponsive. MEDICAL/SURGICAL HISTORY: Chronic obstructive pulmonary disease. Hypertension. None. COMPARISON: [facility], CHEST 1V SINGLE AP, 10/25/2017. . FINDINGS: Portable AP view of the chest demonstrates a normal-sized cardiac silhouette with calcification of th e aorta. Nasogastric tube remains present. There are small bibasilar pleural-parenchymal opacities, l eft slightly greater than right. Mild biapical scar is present. Bones demonstrate no acute finding. CONCLUSION: Stable chest x-ray with bibasilar opacities representing small pleural effusions with associated comp ressive atelectasis and/or consolidation. Electronically signed by: Cruzito Nieves MD 10/27/2017 6:37 AM EDT
[2017-10-27] MEDS: Amiodarone 200 MG Tablet PO SCH (08:27)
[2017-10-27] MEDS: Metoprolol Tartrate 50 MG Tablet PO SCH ×2 (08:27→20:20)
[2017-10-27] MEDS: Famotidine 20 MG Tablet NG/OG SCH ×2 (08:28→20:20)
[2017-10-27] MEDS: Finasteride 5 MG Tablet PO SCH (08:28)
[2017-10-27] MEDS: Senna/Docusate Sodium 8.6/50 MG Tablet PO SCH ×2 (08:32→22:57)
--- NOTE | 2017-10-27 17:23 | P.PNPL ---
Subjective Interval history: 67 YO male with RF, COPD exac Was on VM, got tired now on BIPAP very weak, sob no fever has Thick mucous Physical Exam Vital signs: Vital Signs 10/26/17 18:02 10/26/17 18:24 10/26/17 19:02 Temperature Pulse Rate 101 H 118 H Respiratory Rate 17 26 H Blood Pressure 122/62 138/74 Pulse Oximetry 100 95 95 10/26/17 19:53 10/26/17 20:00 10/26/17 20:02 Temperature 98.2 F Pulse Rate 115 H 121 H 114 H Respiratory Rate 24 26 H Blood Pressure 156/93 H Pulse Oximetry 100 10/26/17 20:23 10/26/17 20:45 10/26/17 21:00 Temperature Pulse Rate 112 H Respiratory Rate 26 H Blood Pressure 114/56 L Pulse Oximetry 96 98 96 10/26/17 22:02 10/26/17 22:45 10/26/17 23:02 Temperature Pulse Rate 100 H 104 H 104 H Respiratory Rate 18 21 23 Blood Pressure 117/52 L 125/54 L 118/59 L Pulse Oximetry 98 95 92 L 10/26/17 23:15 10/27/17 00:00 10/27/17 00:02 Temperature 99.1 F Pulse Rate 102 H 110 H Respiratory Rate 18 24 21 Blood Pressure 127/71 Pulse Oximetry 95 100 10/27/17 02:02 10/27/17 03:02 10/27/17 03:22 Temperature Pulse Rate 104 H 110 H 117 H Respiratory Rate 20 19 22 Blood Pressure 136/67 122/68 Pulse Oximetry 99 98 10/27/17 03:57 10/27/17 04:02 10/27/17 05:02 Temperature 100 F H Pulse Rate 116 H 118 H Respiratory Rate 22 22 Blood Pressure 110/63 126/55 L Pulse Oximetry 93 L 93 L 93 L 10/27/17 06:02 10/27/17 07:02 10/27/17 07:12 Temperature 97.7 F Pulse Rate 112 H 112 H 115 H Respiratory Rate 17 20 19 Blood Pressure 124/57 L 108/67 Pulse Oximetry 95 94 L 97 10/27/17 07:32 10/27/17 08:00 10/27/17 08:02 Temperature Pulse Rate 116 H 124 H Respiratory Rate 22 Blood Pressure 116/60 Pulse Oximetry 96 10/27/17 09:02 10/27/17 10:02 10/27/17 10:56 Temperature Pulse Rate 104 H 102 H 110 H Respiratory Rate 26 H 22 28 H Blood Pressure 103/61 118/66 Pulse Oximetry 94 L 90 L 10/27/17 11:02 10/27/17 12:05 10/27/17 13:00 Temperature 98.6 F Pulse Rate 114 H 114 H 116 H Respiratory Rate 28 H 22 24 Blood Pressure 137/69 125/72 Pulse Oximetry 87 L 97 91 L 10/27/17 14:38 10/27/17 15:00 10/27/17 15:39 Temperature Pulse Rate 112 H 106 H Respiratory Rate 22 22 Blood Pressure 140/70 136/64 Pulse Oximetry 98 98 94 L 10/27/17 17:09 Temperature Pulse Rate Respiratory Rate Blood Pressure Pulse Oximetry 97 Intake & Output 10/26/17 10/27/17 10/27/17 18:59 06:59 18:59 Intake Total 250 / 250 1150 / 1150 Output Total 880 / 880 1700 / 1700 Balance -630 / -630 -550 / -550 Weight 68.3 kg Intake: IV 250 / 250 250 / 250 Precedex Inj 1,000 MCG In NS 250 / 250 250 / 250 Inj 240 ML @ 0.2 MCG/KG/HR 3.02 mls/hr IV.CONT TITRATE PRN Rx# :[id number] Oral 0 / 0 Water Bolus Amount 900 / 900 Output: Urine Amount (Catheter) 880 / 880 1700 / 1700 Indwelling Urethral Catheter 880 / 880 1700 / 1700 Other: Date of Last Bowel Movement 10/26/17 10/26/17 10/26/17 # Bowel Movements 1 GENERAL: Frail elderly male, SOB SKIN: Warm and dry. HEAD: Normocephalic. EYES: No scleral icterus. No injection or drainage. NECK: Supple, trachea midline. No JVD or lymphadenopathy. CARDIOVASCULAR: Regular rate and rhythm without murmurs, gallops, or rubs. RESPIRATORY: Breath sounds equal bilaterally. No accessory muscle use. Exp rhonchi GASTROINTESTINAL: Abdomen soft, non-tender, nondistended. MUSCULOSKELETAL: No cyanosis, or edema. BACK: Nontender without obvious deformity. No CVA tenderness. - Urinary Catheter Management Indwelling Urethral Catheter Cath placed during this visit: yes, but has since been removed by the nurse Reason for continuing: Hourly intake/output Insertion date: 10/18/17 Insertion time: 00:15 Removal date: 10/27/17 Removal time: 12:00 Assessment and Plan - Plan IMPRESSION: 1. Respiratory failure, status post extubation. 2. Chronic obstructive pulmonary disease. 3. Atrial fibrillation. 4. History of transient ischemic attack. 5. Hyperglycemia. PLAN: Cont BIPAP Titeate 02 to keep sat 88-92 % Tube feeding IV Solumedrol monitor BS SQ Lovenox
[2017-10-27] MEDS: Montelukast 10 MG Tablet PO SCH (18:04)
[2017-10-27] MEDS: Enoxaparin Inj 30 MG/0.3 ML Syringe SQ SCH (18:04)
[2017-10-28] MEDS: Insulin NovoLOG Aspart Correctional Sugar Inj SQ SCH ×5 (00:23→23:47)
[2017-10-28 00:37] LABS: Hematocrit 26.4 % (39.0-51.0); Hemoglobin 8.5 gm/dL (13.0-17.0)
[2017-10-28] MEDS: MethylPREDNISolone Sod Succinate Inj 40 MG/ML Vial IV.PUSH SCH ×3 (04:27→18:33)
[2017-10-28 04:56] LABS: Baso % (Auto) 0.1 % (0.0-2.0); Eos % (Auto) 0.1 % (0.0-4.0); Hematocrit 27.3 % (39.0-51.0); Hemoglobin 8.7 gm/dL (13.0-17.0); Lymph # (Auto) 0.4 th/mm3 (1.0-4.8); Lymph % (Auto) 1.6 % (9.0-44.0); Mean Corpuscular Hemoglobin 27.9 pg (27.0-34.0); Mean Corpuscular Volume 87.3 fL (80.0-100.0); Mean Platelet Volume 8.7 fL (7.0-11.0); Mono # (Auto) 0.5 th/mm3 (0.0-0.9); Mono % (Auto) 2.1 % (0.0-8.0); Neut # (Auto) 22.2 th/mm3 (1.8-7.7); Neut % (Auto) 96.1 % (16.0-70.0); Platelet Count 157 th/mm3 (150-450); Red Blood Count 3.12 mil/mm3 (4.50-5.90); Red Cell Distribution Width 15.1 % (11.6-17.2); White Blood Count 23.1 th/mm3 (4.0-11.0)
[2017-10-28 05:03] LABS: Potassium 4.7 meq/L (3.5-5.1)
[2017-10-28 05:06] LABS: Calcium 8.2 mg/dL (8.5-10.1); Carbon Dioxide 38.5 meq/L (21.0-32.0)
--- NOTE | 2017-10-28 06:29 | P.PNCC ---
Subjective Subjective Remarks/Hospital Course: Patient is a 67-year-old Iranian male with history of asthma, COPD, atrial fibrillation, hyperlipidemia, TIA 2010, hypertension who presented to the [place] emergency department with complaints of shortness of breath. He has COPD , and uses 2L oxygen at home. Increasing complaints of shortness of breath over the last few days, in the ED he was severely short of breath and unable to provide any significant history. EMS administered 125mg of solumedrol IV and gave neb treatment prior to arrival to the ER. ER workup showed ABG with pH 7.22 PCO2 98 and PO2 96 on 2 L nasal cannula. Chest x-ray showed left lower lobe pneumonia. Patient was emergently intubated due to severe shortness of breath hypercapnic respiratory failure, I see him still severely short of breath after 3 DuoNeb breathing treatments and IV Solu-Medrol.. Started on scheduled IV Solu-Medrol and antibiotics with Rocephin and azithromycin. I evaluated the patient in the [place] emergency department. He is intubated sedated. He is hypotensive with a map 58-60, urine output 150 mL over the last 5 hours. Creatinine has increased from 1.1-1.9. I have ordered 2 L normal saline bolus. Oxygenation and hypercapnia has improved post intubation, but patient remains critically ill 10/20/17: Remains intubated sedated. FiO2 down to 35% but clinically has bilateral inspiratory and expiratory wheezing. Chest x-ray persistent left lower lobe pneumonia. Creatinine 1.6 today. 850 mL urine output since admission with fluid resuscitation 10/21/17: Remains intubated sedated with Precedex and fentanyl now. Potassium was 6.4. IV fluid changed to normal saline without potassium. Emergently treated with Kayexalate IV bicarb breathing treatments and IV insulin and D50. Only marginal improvement of 6.2 additional treatments ordered along with Kayexalate enema. FiO2 down to 35% but patient did not tolerate CPAP trials today pH went down to 7.27 up to CPAP, became tachycardic. Intermittently following commands. 10/22/17: Slowly improving clinically. More awake while on Precedex follows some commands. Tolerating CPAP but remains hypercapnic and slightly tachypneic on prolonged CPAP. Creatinine slightly increased to 1.7 urine output adequate. Hyperkalemia has resolved. 10/23: Minimal light wheezes. Moderate dose Precedex and he follows commands, cooperative. He has such a high base excess that he will naturally retain CO2. If he continues to breathe comfortably will leave it alone, if he hyperventilates will add a carbonic anhydrase inhibitor. Creatinine down to 1.4 , it is safe to start as needed VIKRAM inhibitor at this time for IV blood pressure control. I have extubated him and his airway is widely patent without obstruction. He continues to breathe comfortably. Subjective 10/24: Resting comfortably in bed in no acute distress. Creatinine currently 2.0. Discontinue VIKRAM inhibitor. Will gently hydrate and hold off acetazolamide at least overnight. CT brain ordered EEG for altered mental status.. 10/25: remains altered, but arousable. bipap in place. clinically appears slightly volume overloaded. EEG with generalized slowing, mild encephalopathy. 10/26: Patient is alert awake, there is a language barrier since his [place] is very limited. He is on facemask nonrebreather of BiPAP today. Some accessory muscles in use for breathing. Per nursing report there is no change in respiratory effort. 10/27: Mild agitation overnight, still requiring intermittent and qhs bipap for respiratory support. 10/28: Patient slept well overnight, now off precedex with no agitation. Per nursing, had a dark red BM last night, pending fecal occult blood. Patient states "I feel better". Objective Vital Signs / I&O: Vital Signs 10/27/17 07:02 10/27/17 07:12 10/27/17 07:32 Temperature 97.7 F Pulse Rate 112 H 115 H Respiratory Rate 20 19 Blood Pressure 108/67 Pulse Oximetry 94 L 97 96 10/27/17 08:00 10/27/17 08:02 10/27/17 09:02 Temperature Pulse Rate 116 H 124 H 104 H Respiratory Rate 22 26 H Blood Pressure 116/60 103/61 Pulse Oximetry 94 L 10/27/17 10:02 10/27/17 10:56 10/27/17 11:02 Temperature Pulse Rate 102 H 110 H 114 H Respiratory Rate 22 28 H 28 H Blood Pressure 118/66 137/69 Pulse Oximetry 90 L 87 L 10/27/17 12:05 10/27/17 13:00 10/27/17 14:38 Temperature 98.6 F Pulse Rate 114 H 116 H 112 H Respiratory Rate 22 24 22 Blood Pressure 125/72 140/70 Pulse Oximetry 97 91 L 98 10/27/17 15:00 10/27/17 15:39 10/27/17 16:00 Temperature 97.6 F Pulse Rate 106 H 116 H Respiratory Rate 22 22 Blood Pressure 136/64 131/70 Pulse Oximetry 98 94 L 97 10/27/17 17:00 10/27/17 17:09 10/27/17 18:00 Temperature Pulse Rate 118 H 120 H Respiratory Rate 23 23 Blood Pressure 123/61 106/56 L Pulse Oximetry 98 97 97 10/27/17 19:00 10/27/17 19:06 10/27/17 20:00 Temperature 99.1 F Pulse Rate 116 H 112 H 107 H Respiratory Rate 21 20 20 Blood Pressure 131/64 109/50 L Pulse Oximetry 94 L 95 93 L 10/27/17 21:00 10/27/17 21:40 10/27/17 22:00 Temperature Pulse Rate 104 H 108 H Respiratory Rate 23 26 H Blood Pressure 103/60 113/53 L Pulse Oximetry 96 96 10/27/17 23:00 10/27/17 23:03 10/28/17 00:00 Temperature 97.6 F Pulse Rate 110 H 110 H 112 H Respiratory Rate 24 24 22 Blood Pressure 118/56 L 98/50 L Pulse Oximetry 98 97 10/28/17 00:53 10/28/17 01:00 10/28/17 01:09 Temperature Pulse Rate 112 H 110 H Respiratory Rate 20 23 Blood Pressure 95/51 L 114/56 L Pulse Oximetry 98 97 96 10/28/17 03:47 10/28/17 04:11 Temperature Pulse Rate 109 H Respiratory Rate 26 H Blood Pressure Pulse Oximetry 99 Intake & Output 10/27/17 10/27/17 10/28/17 06:59 18:59 06:59 Intake Total 1150 / 1150 1721 / 1721 1471 / 1471 Output Total 1700 / 1700 725 / 725 Balance -550 / -550 996 / 996 1471 / 1471 Weight 68.3 kg Intake: IV 250 / 250 250 / 250 Precedex Inj 1,000 MCG In NS 250 / 250 250 / 250 Inj 240 ML @ 0.2 MCG/KG/HR 3.02 mls/hr IV.CONT TITRATE PRN Rx# :[id number] Oral 0 / 0 Tube Feeding 571 / 571 571 / 571 Water Bolus Amount 900 / 900 900 / 900 900 / 900 Output: Urine Amount (Catheter) 1700 / 1700 725 / 725 Indwelling Urethral Catheter 1700 / 1700 725 / 725 Other: Date of Last Bowel Movement 10/26/17 10/26/17 10/26/17 # Bowel Movements 1 # Incontinent Bowel Movements 2 1 Result Diagrams: 10/28/17 04:35 10/28/17 04:35 Objective Remarks: GENERAL: Well-appearing, awake and alert SKIN: Skin tears to bilateral forearms are bandaged, clean/ dry/ intact HEAD: Atraumatic. Normocephalic. EYES: Pupils equal and round. ENT: NG tube in place NECK: Trachea midline. CARDIOVASCULAR: Irregularly irregular, tachy to 110s but on neb treatment currently RESPIRATORY: O2 sats mid 90s on venti-mask/ neb treatment, minimally tachypneic but normal work of breathing, lungs clear GASTROINTESTINAL: Abdomen soft, non-tender, non-distended. MUSCULOSKELETAL: No obvious deformities NEUROLOGICAL: Awake and alert, answers most questions appropriately, voice very soft and difficult to hear but coherent. Assessment and Plan - Assessment and Plan Plan: NEURO/PSYCH: Toxic metabolic encephalopathy -Much improved this morning, delirium precautions, maintain good sleep/ wake hygiene (lights on during the day, TV off/ lights off at night, decrease background noise while sleeping, minimal to no naps and OOB as tolerated during the daytime) -Now off precedex -Will start back home mirtazapine at 1/2 dose (15 mg) as patient has been off this medication since admission. Hopefully this will help prevent needing to restart precedex tonight. -Hold temazepam 15 mg daily, consider starting back very low-dose tomorrow vs holding indefinitely depending on mental status -Acetaminophen 650 mg every 6 hours as needed fever -Oxycodone 5 mg every 6 hours as needed breakthrough pain RESP: Acute COPD exacerbation Acute hypercapnic respiratory failure Left lower lobe pneumonia History of COPD on home oxygen -Pulmonology recommendations appreciated, continuing nebs and mucomyst -Currently on bipap PRN and qhs, trial off bipap today (only needed 3 hours during the day yesterday, now tolerating venti-mask). Titrate to keep O2 sats > 88%. -Albuterol/ipratropium aerosols every 4 hours albuterol/2 hours as needed dyspnea -Budesonide inhaled twice daily -Continue IV methylprednisolone 40 mg IV every 8 hours--- I would like to drop this to q12 tomorrow if he stays off bipap today -Extubated 10/23 -Continue montelukast 10 mg daily CV: Hypotension-resolved Now hypertensive History of atrial fibrillation -Resume home metoprolol tartrate 50 mg twice daily, clonidine 0.2 mg 3 times daily As needed Nitropaste -Continue amiodarone 100 mg daily -Holding home medication hydrochlorothiazide 12.5 mg daily as his BP is well- controlled and he is making adequate urine -Decrease 0.3 mg clonidine scheduled to 0.2 mg as BP is noted to be low following each dose GI: -Glucerna 1.5 tube feeds at 45 cc an hour/dietary recommendations 100 cc free water every 8 hours -IV famotidine -Follow up stool occult blood Renal/: Acute kidney injury Hyperkalemia -Monitor renal function closely; creatinine continues to trend down (1.6--> 1.5) -Corona discontinued yesterday morning. There was a question of urinary retention overnight but patient was able to void and did not require Corona re- insertion. Continue finasteride 5 mg daily when able ID: Left lower lobe pneumonia Severe sepsis -Resolved -Leukocytosis trending up, likely secondary to steroids, afebrile HEME: -Normocytic anemia, stable (patient had a drop in Hg from 10-->8 when he was noted to have maroon stool but has been consistently 8 prior to this; 10 was an outlier) FEN/ENDO: Hyperglycemia -Electrolyte replacement per protocol -Sliding scale insulin with aspart insulin every 6 hours; glucose continues to be elevated to 200s/300s, will increase algorithm to high PROPH: -Bilateral lower extremity SCDs. Enoxaparin/famotidine LINES: -Peripheral IVs Overall: If patient continues to improve from a mental status/ respiratory standpoint, and can stay on bipap consistently (ok to put back on qhs), he can likely be transferred to [facility] service tomorrow. Level 2
[2017-10-28] MEDS: Famotidine 20 MG Tablet NG/OG SCH ×2 (08:15→20:05)
[2017-10-28] MEDS: Metoprolol Tartrate 50 MG Tablet PO SCH ×2 (08:16→20:05)
[2017-10-28] MEDS: Senna/Docusate Sodium 8.6/50 MG Tablet PO SCH ×2 (08:16→20:05)
[2017-10-28] MEDS: Finasteride 5 MG Tablet PO SCH (08:16)
[2017-10-28] MEDS: Amiodarone 200 MG Tablet PO SCH (08:16)
[2017-10-28] MEDS ORDERED: Dexmedetomidine Inj 200 MCG/2 ML Vial IV.PUSH ONE (17:08)
[2017-10-28] MEDS: Dexmedetomidine Inj 1,000 MCG in Sodium Chlor 0.9% Inj 240 ML IV.CONT PRN (17:44)
[2017-10-28] MEDS ORDERED: Dexmedetomidine Inj 200 MCG in Sodium Chlor 0.9% Inj 48 ML IV.CONT PRN (18:00)
[2017-10-28] MEDS: Enoxaparin Inj 30 MG/0.3 ML Syringe SQ SCH (18:33)
[2017-10-28] MEDS: Montelukast 10 MG Tablet PO SCH (18:33)
--- NOTE | 2017-10-28 19:48 | P.PNPL ---
Subjective Interval history: 67 YO male with RF, COPD exac Was on VM, got tired very weak, sob no fever On BIPAP Sedated with Precidex Physical Exam Vital signs: Vital Signs 10/27/17 20:00 10/27/17 21:00 10/27/17 21:40 Temperature 99.1 F Pulse Rate 107 H 104 H Respiratory Rate 20 23 Blood Pressure 109/50 L 103/60 Pulse Oximetry 93 L 96 10/27/17 22:00 10/27/17 23:00 10/27/17 23:03 Temperature Pulse Rate 108 H 110 H 110 H Respiratory Rate 26 H 24 24 Blood Pressure 113/53 L 118/56 L Pulse Oximetry 96 98 10/28/17 00:00 10/28/17 00:53 10/28/17 01:00 Temperature 97.6 F Pulse Rate 112 H 112 H Respiratory Rate 22 20 Blood Pressure 98/50 L 95/51 L Pulse Oximetry 97 98 97 10/28/17 01:09 10/28/17 02:00 10/28/17 03:00 Temperature Pulse Rate 110 H 110 H 114 H Respiratory Rate 23 22 24 Blood Pressure 114/56 L 110/56 L 96/60 L Pulse Oximetry 96 98 98 10/28/17 03:47 10/28/17 04:00 10/28/17 04:11 Temperature 97.4 F L Pulse Rate 109 H 120 H Respiratory Rate 26 H 21 Blood Pressure 150/60 H Pulse Oximetry 100 99 10/28/17 05:00 10/28/17 06:03 10/28/17 07:00 Temperature Pulse Rate 122 H 124 H 120 H Respiratory Rate 22 25 H 21 Blood Pressure 111/49 L 98/50 L 110/50 L Pulse Oximetry 97 95 98 10/28/17 07:40 10/28/17 08:00 10/28/17 08:10 Temperature 97.9 F Pulse Rate 122 H 130 H Respiratory Rate 17 26 H Blood Pressure 105/55 L Pulse Oximetry 100 99 97 10/28/17 09:00 10/28/17 09:09 10/28/17 10:00 Temperature Pulse Rate 110 H 110 H 114 H Respiratory Rate 17 19 22 Blood Pressure 115/55 L Pulse Oximetry 97 96 81 L 10/28/17 11:00 10/28/17 11:06 10/28/17 12:00 Temperature Pulse Rate 118 H 127 H 124 H Respiratory Rate 16 25 H 31 H Blood Pressure Pulse Oximetry 10/28/17 12:29 10/28/17 13:00 10/28/17 14:00 Temperature Pulse Rate 126 H 130 H 130 H Respiratory Rate 23 23 22 Blood Pressure 128/54 L Pulse Oximetry 91 L 98 10/28/17 14:55 10/28/17 15:00 10/28/17 15:09 Temperature Pulse Rate 132 H 133 H Respiratory Rate 30 H 22 Blood Pressure Pulse Oximetry 96 76 L 10/28/17 15:33 10/28/17 16:00 10/28/17 17:00 Temperature Pulse Rate 144 H 136 H 126 H Respiratory Rate 22 25 H 20 Blood Pressure 143/62 H Pulse Oximetry 97 98 96 10/28/17 17:03 10/28/17 17:40 10/28/17 18:00 Temperature 98.2 F Pulse Rate 126 H 128 H Respiratory Rate 23 18 Blood Pressure 132/67 125/57 L Pulse Oximetry 97 98 97 10/28/17 19:00 10/28/17 19:13 Temperature Pulse Rate 116 H Respiratory Rate 19 Blood Pressure 114/52 L Pulse Oximetry 96 99 Intake & Output 10/28/17 10/28/17 10/29/17 06:59 18:59 06:59 Intake Total 970 / 970 250 / 250 Output Total 300 / 300 Balance 670 / 670 250 / 250 Weight 68.6 kg Intake: IV 250 / 250 Precedex Inj 1,000 MCG In NS 250 / 250 Inj 240 ML @ 0.2 MCG/KG/HR 3.02 mls/hr IV.CONT TITRATE PRN Rx# :[id number] Tube Feeding 370 / 370 Water Bolus Amount 600 / 600 Output: Urine 300 / 300 Other: # Voids 7 Date of Last Bowel Movement 10/27/17 10/28/17 # Incontinent Bowel Movements 1 GENERAL: Frail elderly Wm, mild SOB SKIN: Warm and dry. HEAD: Normocephalic. EYES: No scleral icterus. No injection or drainage. NECK: Supple, trachea midline. No JVD or lymphadenopathy. CARDIOVASCULAR: Regular rate and rhythm without murmurs, gallops, or rubs. RESPIRATORY: Breath sounds equal bilaterally. No accessory muscle use. GASTROINTESTINAL: Abdomen soft, non-tender, nondistended. MUSCULOSKELETAL: No cyanosis, or edema. BACK: Nontender without obvious deformity. No CVA tenderness. - Urinary Catheter Management Indwelling Urethral Catheter Cath placed during this visit: yes, but has since been removed by the nurse Reason for continuing: Acute urinary retention Insertion date: 10/18/17 Insertion time: 00:15 Removal date: 10/27/17 Removal time: 12:00 Assessment and Plan - Plan IMPRESSION: 1. Respiratory failure, status post extubation. 2. Chronic obstructive pulmonary disease. 3. Atrial fibrillation. 4. History of transient ischemic attack. 5. Hyperglycemia. PLAN: Cont BIPAP Titeate 02 to keep sat 88-92 % Tube feeding IV Solumedrol monitor BS SQ Lovenox Precidex for sedation
[2017-10-28] MEDS: Mirtazapine 15 MG Tablet NG/OG SCH (20:05)
[2017-10-29 05:01] LABS: Hematocrit 26.2 % (39.0-51.0); Hemoglobin 8.3 gm/dL (13.0-17.0); Mean Corpuscular HGB Conc 31.8 % (32.0-36.0); Mean Corpuscular Hemoglobin 27.6 pg (27.0-34.0); Mean Corpuscular Volume 86.9 fL (80.0-100.0); Mean Platelet Volume 8.9 fL (7.0-11.0); Platelet Count 125 th/mm3 (150-450); Red Blood Count 3.01 mil/mm3 (4.50-5.90); Red Cell Distribution Width 15.4 % (11.6-17.2); White Blood Count 18.8 th/mm3 (4.0-11.0)
[2017-10-29 05:15] LABS: Potassium 4.4 meq/L (3.5-5.1)
[2017-10-29 05:18] LABS: Calcium 8.5 mg/dL (8.5-10.1); Carbon Dioxide 40.9 meq/L (21.0-32.0)
[2017-10-29] MEDS: MethylPREDNISolone Sod Succinate Inj 40 MG/ML Vial IV.PUSH SCH ×3 (05:44→20:46)
[2017-10-29] MEDS: Insulin NovoLOG Aspart Correctional Sugar Inj SQ SCH ×3 (05:57→18:42)
--- NOTE | 2017-10-29 06:23 | P.PNCC ---
Subjective Subjective Remarks/Hospital Course: Patient is a 67-year-old [place] male with history of asthma, COPD, atrial fibrillation, hyperlipidemia, TIA 2010, hypertension who presented to the [place] emergency department with complaints of shortness of breath. He has COPD , and uses 2L oxygen at home. Increasing complaints of shortness of breath over the last few days, in the ED he was severely short of breath and unable to provide any significant history. EMS administered 125mg of solumedrol IV and gave neb treatment prior to arrival to the ER. ER workup showed ABG with pH 7.22 PCO2 98 and PO2 96 on 2 L nasal cannula. Chest x-ray showed left lower lobe pneumonia. Patient was emergently intubated due to severe shortness of breath hypercapnic respiratory failure, I see him still severely short of breath after 3 DuoNeb breathing treatments and IV Solu-Medrol.. Started on scheduled IV Solu-Medrol and antibiotics with Rocephin and azithromycin. I evaluated the patient in the [place] emergency department. He is intubated sedated. He is hypotensive with a map 58-60, urine output 150 mL over the last 5 hours. Creatinine has increased from 1.1-1.9. I have ordered 2 L normal saline bolus. Oxygenation and hypercapnia has improved post intubation, but patient remains critically ill 10/20/17: Remains intubated sedated. FiO2 down to 35% but clinically has bilateral inspiratory and expiratory wheezing. Chest x-ray persistent left lower lobe pneumonia. Creatinine 1.6 today. 850 mL urine output since admission with fluid resuscitation 10/21/17: Remains intubated sedated with Precedex and fentanyl now. Potassium was 6.4. IV fluid changed to normal saline without potassium. Emergently treated with Kayexalate IV bicarb breathing treatments and IV insulin and D50. Only marginal improvement of 6.2 additional treatments ordered along with Kayexalate enema. FiO2 down to 35% but patient did not tolerate CPAP trials today pH went down to 7.27 up to CPAP, became tachycardic. Intermittently following commands. 10/22/17: Slowly improving clinically. More awake while on Precedex follows some commands. Tolerating CPAP but remains hypercapnic and slightly tachypneic on prolonged CPAP. Creatinine slightly increased to 1.7 urine output adequate. Hyperkalemia has resolved. 10/23: Minimal light wheezes. Moderate dose Precedex and he follows commands, cooperative. He has such a high base excess that he will naturally retain CO2. If he continues to breathe comfortably will leave it alone, if he hyperventilates will add a carbonic anhydrase inhibitor. Creatinine down to 1.4 , it is safe to start as needed VIKRAM inhibitor at this time for IV blood pressure control. I have extubated him and his airway is widely patent without obstruction. He continues to breathe comfortably. Subjective 10/24: Resting comfortably in bed in no acute distress. Creatinine currently 2.0. Discontinue VIKRAM inhibitor. Will gently hydrate and hold off acetazolamide at least overnight. CT brain ordered EEG for altered mental status.. 10/25: remains altered, but arousable. bipap in place. clinically appears slightly volume overloaded. EEG with generalized slowing, mild encephalopathy. 10/26: Patient is alert awake, there is a language barrier since his Vietnamese is very limited. He is on facemask nonrebreather of BiPAP today. Some accessory muscles in use for breathing. Per nursing report there is no change in respiratory effort. 10/27: Mild agitation overnight, still requiring intermittent and qhs bipap for respiratory support. 10/28: Patient slept well overnight, now off precedex with no agitation. Per nursing, had a dark red BM last night, pending fecal occult blood. Patient states "I feel better". 10/29: Patient required a short course of bipap during the afternoon yesterday (? 1-2 hrs) and had mild agitation requiring low-dose of precedex while on bipap as he cannot be restrained while the mask is on. Per overnight RN, no further episodes of melena. Patient resting comfortably this morning, offers no complaints. Objective Vital Signs / I&O: Vital Signs 10/28/17 07:00 10/28/17 07:40 10/28/17 08:00 Temperature 97.9 F Pulse Rate 120 H 122 H 130 H Respiratory Rate 21 17 26 H Blood Pressure 110/50 L 105/55 L Pulse Oximetry 98 100 99 10/28/17 08:10 10/28/17 09:00 10/28/17 09:09 Temperature Pulse Rate 110 H 110 H Respiratory Rate 17 19 Blood Pressure 115/55 L Pulse Oximetry 97 97 96 10/28/17 10:00 10/28/17 11:00 10/28/17 11:06 Temperature Pulse Rate 114 H 118 H 127 H Respiratory Rate 22 16 25 H Blood Pressure Pulse Oximetry 81 L 10/28/17 12:00 10/28/17 12:29 10/28/17 13:00 Temperature Pulse Rate 124 H 126 H 130 H Respiratory Rate 31 H 23 23 Blood Pressure 128/54 L Pulse Oximetry 91 L 10/28/17 14:00 10/28/17 14:55 10/28/17 15:00 Temperature Pulse Rate 130 H 132 H Respiratory Rate 22 30 H Blood Pressure Pulse Oximetry 98 96 76 L 10/28/17 15:09 10/28/17 15:33 10/28/17 16:00 Temperature Pulse Rate 133 H 144 H 136 H Respiratory Rate 22 22 25 H Blood Pressure 143/62 H Pulse Oximetry 97 98 10/28/17 17:00 10/28/17 17:03 10/28/17 17:40 Temperature Pulse Rate 126 H 126 H Respiratory Rate 20 23 Blood Pressure 132/67 Pulse Oximetry 96 97 98 10/28/17 18:00 10/28/17 19:00 10/28/17 19:13 Temperature 98.2 F Pulse Rate 128 H 116 H Respiratory Rate 18 19 Blood Pressure 125/57 L 114/52 L Pulse Oximetry 97 96 99 10/28/17 19:34 10/28/17 20:00 10/28/17 20:13 Temperature Pulse Rate 105 H 115 H 124 H Respiratory Rate 20 24 Blood Pressure 134/64 Pulse Oximetry 100 98 10/28/17 21:13 10/28/17 22:00 10/28/17 22:13 Temperature 97.7 F Pulse Rate 100 H 100 H 106 H Respiratory Rate 21 20 24 Blood Pressure 124/74 107/75 Pulse Oximetry 98 100 99 10/28/17 23:12 10/28/17 23:13 10/29/17 00:00 Temperature Pulse Rate 107 H 104 H Respiratory Rate 17 18 Blood Pressure 105/48 L Pulse Oximetry 100 100 10/29/17 00:16 10/29/17 01:13 10/29/17 02:13 Temperature 97.6 F Pulse Rate 106 H 104 H 100 H Respiratory Rate 19 18 18 Blood Pressure 86/56 L 92/48 L 86/54 L Pulse Oximetry 99 99 99 10/29/17 03:13 10/29/17 04:13 10/29/17 04:35 Temperature 97.6 F Pulse Rate 102 H 107 H 101 H Respiratory Rate 23 20 18 Blood Pressure 110/58 L 83/56 L Pulse Oximetry 100 100 10/29/17 04:45 10/29/17 05:00 10/29/17 06:00 Temperature Pulse Rate 112 H 116 H Respiratory Rate 21 19 Blood Pressure 106/54 L Pulse Oximetry 100 100 100 Intake & Output 10/28/17 10/28/17 10/29/17 06:59 18:59 06:59 Intake Total 970 / 970 250 / 250 0 / 0 Output Total 300 / 300 Balance 670 / 670 250 / 250 0 / 0 Weight 68.6 kg 68.8 kg Intake: IV 250 / 250 Precedex Inj 1,000 MCG In NS 250 / 250 Inj 240 ML @ 0.2 MCG/KG/HR 3.02 mls/hr IV.CONT TITRATE PRN Rx# :[id number] Oral 0 / 0 Tube Feeding 370 / 370 Water Bolus Amount 600 / 600 Output: Urine 300 / 300 Other: # Voids 7 4 Date of Last Bowel Movement 10/27/17 10/28/17 10/28/17 # Bowel Movements 2 # Incontinent Bowel Movements 1 2 Result Diagrams: 10/29/17 04:40 10/29/17 04:40 Objective Remarks: GENERAL: Well-appearing, easily arousable SKIN: Bandages to forearm skin tears clean/ dry/ intact HEAD: Atraumatic. Normocephalic. EYES: Pupils equal and round. ENT: NG tube in place, bipap in use NECK: Trachea midline. CARDIOVASCULAR: Irregularly irregular RESPIRATORY: On bipap at present, no respiratory distress, lungs clear GASTROINTESTINAL: Abdomen soft, non-tender, non-distended. MUSCULOSKELETAL: No obvious deformities NEUROLOGICAL: Sleepy but arousable to voice, opens eyes and makes eye contact, nods/ shakes head appropriately to questions, unable to hear if patient is trying to speak as he is on bipap Assessment and Plan - Assessment and Plan Plan: NEURO/PSYCH: Toxic metabolic encephalopathy -Continued improvement, delirium precautions, maintain good sleep/ wake hygiene (lights on during the day, TV off/ lights off at night, decrease background noise while sleeping, minimal to no naps and OOB as tolerated during the daytime ) -Keep off precedex today; will start PRN zyprexa as long at QTc is <400 -Mirtazepine restarted last night, patient slept well as per RN, no agitation overnight -Hold temazepam 15 mg daily, consider starting back very low-dose tomorrow vs holding indefinitely depending on mental status -Acetaminophen 650 mg every 6 hours as needed fever -Decrease oxycodone to 2.5 mg every 6 hours as needed breakthrough pain RESP: Acute COPD exacerbation Acute hypercapnic respiratory failure Left lower lobe pneumonia History of COPD on home oxygen -Pulmonology recommendations appreciated, continuing nebs and mucomyst -Currently on bipap PRN and qhs, trial off bipap again today (only needed for 1- 2 hrs yesterday per RN). Titrate to keep O2 sats >88%. -Albuterol/ipratropium aerosols every 4 hours albuterol/2 hours as needed dyspnea -Budesonide inhaled twice daily -Decrease IV methylprednisolone 40 mg IV from q8h to q12h -Extubated 10/23 -Continue montelukast 10 mg daily CV: Hypotension-resolved Now hypertensive History of atrial fibrillation -Resume home metoprolol tartrate 50 mg twice daily, clonidine 0.2 mg 3 times daily As needed Nitropaste -Continue amiodarone 100 mg daily -Holding home medication hydrochlorothiazide 12.5 mg daily as his BP is well- controlled and he is making adequate urine -Decrease 0.3 mg clonidine scheduled to 0.2 mg as BP is noted to be low following each dose -EKG today to check QTc interval prior to starting PRN zyprexa GI: -Glucerna 1.5 tube feeds at 45 cc an hour/dietary recommendations 100 cc free water every 8 hours -IV famotidine -Follow up stool occult blood Renal/: Acute kidney injury Hyperkalemia -Monitor renal function closely; creatinine continues to trend down (1.6--> 1.5) -O finasteride 5 mg daily when able ID: Left lower lobe pneumonia Severe sepsis -Resolved -Leukocytosis trending down, likely secondary to steroids, afebrile HEME: -Normocytic anemia, stable FEN/ENDO: Hyperglycemia -Electrolyte replacement per protocol -Sliding scale insulin with aspart insulin every 6 hours; glucose continues to be elevated to 200s/300s, algorithm increased to high yesterday; hopefully this will improve with weaning steroids -Sodium also increasing, will increase free water flushes PROPH: -Bilateral lower extremity SCDs. Enoxaparin/famotidine LINES: -Peripheral IVs Patient also has no known next of kin, and caser in has been attempting to reach the patient's friend/ caregiver. Given the patient's prolonged ICU stay, intubation/ bipap, and severe COPD, I feel that it is appropriate to ask for a palliative care consult so the patient can discuss his wishes as there are no friends or family that will be able to make decisions on his behalf, and he will undoubtedly have continued complications from his COPD in the future. Overall: Patient can likely move out of unit today if [facility] service is comfortable with the patient being on nocturnal bipap. He is being followed by pulmonology and is much improved over the past several days from a respiratory standpoint. Level 2
[2017-10-29] MEDS ORDERED: Sodium Chloride 0.45 % Inj 1,000 ML IV.CONT SCH (06:30)
[2017-10-29] MEDS: Metoprolol Tartrate 50 MG Tablet PO SCH ×2 (09:44→20:08)
[2017-10-29] MEDS: Senna/Docusate Sodium 8.6/50 MG Tablet PO SCH ×2 (09:44→20:08)
[2017-10-29] MEDS: Famotidine 20 MG Tablet NG/OG SCH ×2 (09:44→20:08)
[2017-10-29] MEDS: Amiodarone 200 MG Tablet PO SCH (09:45)
[2017-10-29] MEDS: Finasteride 5 MG Tablet PO SCH (09:45)
--- NOTE | 2017-10-29 12:55 | P.PN ---
Subjective Interval history: Follow up for respiratory failure, pneumonia. Patient is receiving tube feed through NG Tube. Responds appropriately. No fever, chills. Currently on nasal cannula. Physical Exam Vital signs: Vital Signs 10/28/17 13:00 10/28/17 14:00 10/28/17 14:55 Temperature Pulse Rate 130 H 130 H Respiratory Rate 23 22 Blood Pressure Pulse Oximetry 98 96 10/28/17 15:00 10/28/17 15:09 10/28/17 15:33 Temperature Pulse Rate 132 H 133 H 144 H Respiratory Rate 30 H 22 22 Blood Pressure 143/62 H Pulse Oximetry 76 L 97 10/28/17 16:00 10/28/17 17:00 10/28/17 17:03 Temperature Pulse Rate 136 H 126 H Respiratory Rate 25 H 20 Blood Pressure Pulse Oximetry 98 96 97 10/28/17 17:40 10/28/17 18:00 10/28/17 19:00 Temperature 98.2 F Pulse Rate 126 H 128 H Respiratory Rate 23 18 Blood Pressure 132/67 125/57 L Pulse Oximetry 98 97 96 10/28/17 19:13 10/28/17 19:34 10/28/17 20:00 Temperature Pulse Rate 116 H 105 H 115 H Respiratory Rate 19 20 Blood Pressure 114/52 L Pulse Oximetry 99 100 10/28/17 20:13 10/28/17 21:13 10/28/17 22:00 Temperature Pulse Rate 124 H 100 H 100 H Respiratory Rate 24 21 20 Blood Pressure 134/64 124/74 Pulse Oximetry 98 98 100 10/28/17 22:13 10/28/17 23:12 10/28/17 23:13 Temperature 97.7 F Pulse Rate 106 H 107 H 104 H Respiratory Rate 24 17 18 Blood Pressure 107/75 105/48 L Pulse Oximetry 99 100 10/29/17 00:00 10/29/17 00:16 10/29/17 01:13 Temperature 97.6 F Pulse Rate 106 H 104 H Respiratory Rate 19 18 Blood Pressure 86/56 L 92/48 L Pulse Oximetry 100 99 99 10/29/17 02:13 10/29/17 03:13 10/29/17 04:13 Temperature 97.6 F Pulse Rate 100 H 102 H 107 H Respiratory Rate 18 23 20 Blood Pressure 86/54 L 110/58 L 83/56 L Pulse Oximetry 99 100 100 10/29/17 04:35 10/29/17 04:45 10/29/17 05:00 Temperature Pulse Rate 101 H 112 H Respiratory Rate 18 21 Blood Pressure Pulse Oximetry 100 100 10/29/17 06:00 10/29/17 07:00 10/29/17 07:49 Temperature 97.6 F Pulse Rate 116 H 110 H 119 H Respiratory Rate 19 20 21 Blood Pressure 106/54 L 99/52 L Pulse Oximetry 100 100 10/29/17 07:51 10/29/17 08:00 10/29/17 08:13 Temperature Pulse Rate 114 H 110 H Respiratory Rate 18 18 Blood Pressure 100/51 L Pulse Oximetry 100 100 99 10/29/17 09:00 10/29/17 10:00 10/29/17 11:31 Temperature Pulse Rate 114 H 110 H 116 H Respiratory Rate 19 16 20 Blood Pressure 111/53 L 105/64 Pulse Oximetry 100 100 10/29/17 11:32 Temperature Pulse Rate Respiratory Rate Blood Pressure Pulse Oximetry 93 L Intake & Output 10/28/17 10/29/17 10/29/17 18:59 06:59 18:59 Intake Total 250 / 250 0 / 0 Balance 250 / 250 0 / 0 Weight 68.8 kg Intake: IV 250 / 250 Precedex Inj 1,000 MCG In NS 250 / 250 Inj 240 ML @ 0.2 MCG/KG/HR 3.02 mls/hr IV.CONT TITRATE PRN Rx# :[id number] Oral 0 / 0 Other: # Voids 7 4 Date of Last Bowel Movement 10/28/17 10/28/17 # Bowel Movements 2 # Incontinent Bowel Movements 2 Narrative: GENERAL: Alert, NAD. NG tube in place. SKIN: Warm and dry. HEAD: Normocephalic. EYES: No scleral icterus. No injection or drainage. NECK: Supple, trachea midline. No JVD or lymphadenopathy. CARDIOVASCULAR: Irreg Irreg, tachycardic without murmurs, gallops, or rubs. RESPIRATORY: Breath sounds equal bilaterally. No accessory muscle use. GASTROINTESTINAL: Abdomen soft, non-tender, nondistended. MUSCULOSKELETAL: No cyanosis. RLE 2+ edema and LLE 1+ edema. BACK: Nontender without obvious deformity. No CVA tenderness. - Urinary Catheter Management Indwelling Urethral Catheter Cath placed during this visit: yes, but has since been removed by the nurse Reason for continuing: Acute urinary retention Insertion date: 10/18/17 Insertion time: 00:15 Removal date: 10/27/17 Removal time: 12:00 Results - Labs CBC & Chem 7: 10/29/17 04:40 10/29/17 04:40 Laboratory Results - last 24 hr 10/28/17 10/28/17 10/28/17 13:22 13:23 17:37 WBC RBC Hgb Hct MCV MCH MCHC RDW Plt Count MPV Sodium Potassium Chloride Carbon Dioxide Anion Gap BUN Creatinine Estimated GFR POC Glucose 445 H 387 H 191 H Random Glucose Calcium 10/28/17 10/29/17 10/29/17 23:45 04:40 04:40 WBC 18.8 H RBC 3.01 L Hgb 8.3 L Hct 26.2 L MCV 86.9 MCH 27.6 MCHC 31.8 L RDW 15.4 Plt Count 125 L MPV 8.9 Sodium 150 H Potassium 4.4 Chloride 107 Carbon Dioxide 40.9 H Anion Gap 2 L BUN 63 H Creatinine 1.40 H Estimated GFR 50 L POC Glucose 228 H Random Glucose 108 H D Calcium 8.5 10/29/17 10/29/17 05:54 12:28 WBC RBC Hgb Hct MCV MCH MCHC RDW Plt Count MPV Sodium Potassium Chloride Carbon Dioxide Anion Gap BUN Creatinine Estimated GFR POC Glucose 169 H 304 H Random Glucose Calcium Microbiology 10/28/17 00:05 Stool Stool Occult Blood (NUZHAT) - Final Hemoccult positive Assessment and Plan - Plan Mr. Moore is a 67 year old [place] male with a history of asthma, COPD, atrial fibrillation, hyperlipidemia, TIA and hypertension who was admitted to the hospital due to shortness of breath on 10/18/2017. He typically uses 2 L of oxygen at home due to COPD. In the ER his ABG was pH 7.22 PCO2 98 and PO2 96 on 2 L nasal cannula. Chest x-ray showed left lower lobe pneumonia. Patient was emergently intubated due to shortness of breath with hypercapnic respiratory failure. Patient was started on IV Solu-Medrol as well as Rocephin and azithromycin. He received IV fluid due to hypotension. Also received IV insulin, D50 as well as Kayexalate and bicarb for hyperkalemia. She was extubated on 10/23/2017. After extubation, patient was continued to be managed by critical care. He required BiPAP. Precedex was weaned off. His care was transferred to hospitalist service on 10/29/2017. Acute hypercapnic respiratory failure Left lower lobe pneumonia COPD - Used BiPAP overnight and this morning. Currently on NC. - O2 to keep O2 sat > 88%. - Continue DuoNeb, Solu-medrol 40mg IV Q12hrs. We can wean off steroid. - Patient finished course of abx. Atrial fibrillation Hypertension - Currently on Metoprolol 50mg Q12hrs. - If HR remains uncontrolled, consider changing to Metoprolol 50mg Q8hrs. - Currently on Amiodarone 100mg Qday as well. - Currently normotensive. IF needed, consider Amlodipine for BP instead of scheduled clonidine. Diabetes mellitus - Patient was only on sliding scale insulin. - Will start patient on Levemir 12 units QHS. - BG in 350-380 range. Goal 140-180. Acute kidney injury - Creatinine continues to improve. 2.0 --> 1.40. Right lower ext edema - will obtain doppler US to rule out DVT. Full code. Lovenox.
--- NOTE | 2017-10-29 14:55 | P.CONPAL ---
Consult Service: Palliative Care Requesting Physician: Jackie Valdez Reason for Consult: a. To assist with evaluation and management of symptoms including: Dyspnea, weakness, pain b. To assist medical decision maker(s) with: better understanding of current medical conditions; weighing benefits/burdens of medical treatment options; making medical treatment decisions. Primary Care Provider: UNKNOWN History of Present Illness History of Present Illness: This is a 67-year-old Lebanese male brought to the emergency room 10/18 by EMS with a complaint of shortness of breath. He has a past medical history of asthma, COPD, atrial fibrillation, hyperlipidemia, TIA in 2010, hypertension, chronically on 2 L nasal cannula O2. He is unable to tell me whether he continues to smoke or not. He has a close friend, Jo, that assists with his care and she notes he has been less conversant over the prior days with visible dyspnea. EMS gave Solu-Medrol and nebulizer treatments prior to his arrival at the ER. Clinical findings * ABG showed pH 7.22, PCO2 98, PaO2 96 on 2 L nasal cannula. * Chest x-ray showed left lower lobe pneumonia. Patient was emergently intubated. * He was given 3 DuoNeb breathing treatments with additional IV Solu-Medrol, Rocephin and azithromycin. * Labs showed WBC 4.9, hemoglobin 8.4, hematocrit 26.0, platelets 179, sodium 135, potassium 4.7, BUN 26, creatinine 1.90, glucose 296, troponin 0 0.15, 0.28 , total bilirubin 0.9, AST 19, ALT 21, alk phos 109, albumin 3.6 He was extubated 10/23 after stabilization. He did require BiPAP intermittently. He is seen today on nasal cannula O2 at 2 L. He remains visibly dyspneic and distressed. He nods yes to question of pain and locates this to his left abdomen and his throat. He is in atrial fibrillation/flutter with RVR, heart rate 134, mildly tachypneic with respiratory rate 25, blood pressure 105/64 with MA P 77 at this evaluation. He is able to nod appropriately to questions but has difficulty speaking because of his throat pain and generalized weakness. He indicates that the NG tube is causing pain in his throat. He is unable to quantify or qualify this pain due to his dyspnea , discomfort and language limitations. He speaks heavily accented Mongolian and being unable to speak above a whisper, he is difficult to understand. He does wince/grimace with light palpation of the left upper and lower quadrants of his abdomen. He is overall very weak and has difficulty lifting his arms off the bed for any length of time. On 10/28 he had a dark red bowel movement which was Hemoccult positive. No recurrence of that today per the RN. He was evaluated by speech therapy who noted reduced oral bolus cohesion, formation and propulsion, delayed swallow response and made n.p.o. secondary to high risk for aspiration. He continues to receive tube feeding via NG tube. Pulmonology is following for assistance, due to his history of chronic obstructive pulmonary disease and risk for recurrent respiratory failure. Review of past records indicates TB QuantiFERON positive, representing latent TB. Patient is known to have received BCG and he came from the [facility]. . Function/Cognitive Trajectory: Review of prior records indicate that he was independent but has declined to needing oxygen all the time. He has a friend who helps him, as he does require assistance with ADLs. Physical therapy notes limited activity tolerance due to tachycardia at rest, worsening with activity. . Review of Systems Patient is dyspneic and has difficulty speaking so ROS may be unreliable. 10 part ROS taken as best as possible from medical record and available family. Constitutional: Reports weakness Ears, Nose, Mouth, and Throat: Reports difficulty swallowing Cardiovascular: Reports rapid, pounding, or irregular heartbeat Respiratory: Reports shortness of breath Gastrointestinal: Reports abdominal pain PMFSH - History History Provided By: Medical Record, Hyster Machine Operator / EMT - Medical History Medical History: Medical History (Last Reviewed 10/29/17 @ 09:28 by Tali Adame, SATELLITE INSTRUCTION FACILITATOR) COPD (chronic obstructive pulmonary disease) Hypertension Insomnia - Tobacco History Second Hand Smoke Exposure: Yes Tobacco Use In Past 30 Days: Yes Smoking Status: Smoker, status unknown Tobacco Type: Cigarettes - Alcohol History How Often Do You Have a Drink Containing Alcohol: Unable to Obtain - Substance Use History Substance History: No History of Abuse, Unable to Obtain - Travel History [facility] Within the Last 8 Weeks: No Recent Travel Out of the Country Within the Last 8 Weeks: No - Immunization History Tetanus Immunization: Never Vaccinated Hx Influenza Vaccine This Season: No Medications and Allergies Active Medications: Active Medications Acetaminophen (Tylenol Liq) 650 mg PO Q6H PRN PRN Reason: FEVER Last Admin: 10/25/17 08:01 Dose: 650 mg Acetylcysteine (Mucomyst 20% Neb) 2 ml NEB Q6HR NEB [facility] Last Admin: 10/29/17 11:31 Dose: 2 ml Al Hydroxide/Mg Hydroxide (Milk Of Magnesia Liq) 30 ml PO Q12H PRN PRN Reason: Mild Constipation Last Admin: 10/25/17 17:20 Dose: 30 ml Albuterol (Albuterol Neb (Prn)) 2.5 mg NEB Q2HR NEB PRN PRN Reason: SHORTNESS OF BREATH/WHEEZING Last Admin: 10/27/17 07:08 Dose: 2.5 mg Albuterol (Duoneb Neb (Sharifa)) 1 ampul NEB Q4HR NEB [facility] Last Admin: 10/29/17 11:30 Dose: 1 ampul Amiodarone HCl (Cordarone) 100 mg PO DAILY [facility] Last Admin: 10/29/17 09:45 Dose: 100 mg Bisacodyl (Dulcolax Supp) 10 mg RECTAL DAILY PRN PRN Reason: SEVERE CONSITIPATION Budesonide (Pulmocort Respule Neb) 0.5 mg NEB Q12HR NEB [facility] Last Admin: 10/29/17 07:54 Dose: 0.5 mg Clonidine HCl (Catapres) 0.1 mg PO Q6H PRN PRN Reason: SBP>170 Last Admin: 10/23/17 02:43 Dose: 0.1 mg Dextrose (D50w Vial) 50 ml IV.PUSH UNSCH PRN PRN Reason: PER HYPOGLYCEMIA PROTOCOL Enoxaparin Sodium (Lovenox Inj) 30 mg SQ Q24H [facility] Last Admin: 10/28/17 18:33 Dose: 30 mg Famotidine (Pepcid) 10 mg NG/OG BID [facility] Last Admin: 10/29/17 09:44 Dose: 10 mg Finasteride (Proscar) 5 mg PO DAILY [facility] Last Admin: 10/29/17 09:45 Dose: 5 mg Glucagon (Glucagon Inj) 1 mg OTHER PRN PRN PRN Reason: for Hypoglycemia Protocol Insulin Aspart (Novolog Insulin Correctional Sugar Inj) 0 unit SQ Q6HR [facility]; Protocol Last Admin: 10/29/17 05:57 Dose: 5 unit Insulin Detemir (Levemir Inj) 12 unit SQ HS [facility] Lactulose (Lactulose Liq) 30 ml PO DAILY PRN PRN Reason: SEVERE CONSITIPATION Methylprednisolone Sodium Succinate (Solumedrol Inj) 40 mg IV.PUSH Q12HR [facility] Last Admin: 10/29/17 09:44 Dose: 40 mg Metoprolol Tartrate (Lopressor) 50 mg PO BID [facility] Last Admin: 10/29/17 09:44 Dose: 50 mg Mirtazapine (Remeron) 15 mg NG/OG HS [facility] Last Admin: 10/28/17 20:05 Dose: 15 mg Miscellaneous (Pill Splitter) 1 each OTHER UNSCH X1 PRN PRN Reason: SEE LABEL COMMENTS Montelukast Sodium (Singulair) 10 mg PO QPM [facility] Last Admin: 10/28/17 18:33 Dose: Not Given Nitroglycerin (Nitro-Bid 2% Oint) 2 inch TOPICAL Q6HR PRN PRN Reason: SBP>160, DBP>90 Racemic Epinephrine (2.25%-0.5ml) 0 each NEB Q1H PRN PRN Reason: STRIDOR Last Admin: 10/24/17 08:31 Dose: 2.25 each Oxycodone HCl (Roxicodone) 2.5 mg PO Q6H PRN PRN Reason: BREAKTHROUGH PAIN Senna/Docusate Sodium (Romina-Colace) 1 tab PO BID [facility] Last Admin: 10/29/17 09:44 Dose: 1 tab Sennosides (Senokot) 17.2 mg PO Q12H PRN PRN Reason: Moderate Constipation Sodium Chloride (Ns Flush) 2 ml IV.FLUSH BID [facility] Last Admin: 10/29/17 09:45 Dose: 2 ml Sodium Chloride (Ns Flush) 2 ml IV.FLUSH PRN PRN PRN Reason: FLUSH AFTER USING IV ACCESS Last Admin: 10/26/17 08:37 Dose: 2 ml Sterile Water (Free Water) 400 ml G-TUBE Q4HR [facility] Allergies Allergy/AdvReac Type Severity Reaction Status Date / Time No Known Allergies Allergy Uncoded 03/07/13 14:09 Home Medications Medication Instructions Recorded Confirmed Type amiodarone 100 mg PO DAILY 10/19/17 History finasteride 5 mg PO DAILY 10/19/17 History hydrochlorothiazide 12.5 mg PO QAM 10/19/17 History hydrocodone-acetaminophen 1 tab PO Q6H PRN 10/19/17 History metoprolol tartrate 50 mg PO BID 10/19/17 History mirtazapine 30 mg PO DAILY 10/19/17 History montelukast 10 mg PO QPM 10/19/17 History temazepam PRN MDD 1 10/19/17 History Advance Directives Living Will: No Healthcare Surrogate: No Power of Mini Lab Operator: No Physical Exam Vital Signs: Vital Signs - 24 hr 10/28/17 14:55 10/28/17 15:00 10/28/17 15:09 Temperature Pulse Rate 132 H 133 H Respiratory Rate 30 H 22 Blood Pressure Pulse Oximetry 96 76 L 10/28/17 15:33 10/28/17 16:00 10/28/17 17:00 Temperature Pulse Rate 144 H 136 H 126 H Respiratory Rate 22 25 H 20 Blood Pressure 143/62 H Pulse Oximetry 97 98 96 10/28/17 17:03 10/28/17 17:40 10/28/17 18:00 Temperature 98.2 F Pulse Rate 126 H 128 H Respiratory Rate 23 18 Blood Pressure 132/67 125/57 L Pulse Oximetry 97 98 97 10/28/17 19:00 10/28/17 19:13 10/28/17 19:34 Temperature Pulse Rate 116 H 105 H Respiratory Rate 19 20 Blood Pressure 114/52 L Pulse Oximetry 96 99 10/28/17 20:00 10/28/17 20:13 10/28/17 21:13 Temperature Pulse Rate 115 H 124 H 100 H Respiratory Rate 24 21 Blood Pressure 134/64 124/74 Pulse Oximetry 100 98 98 10/28/17 22:00 10/28/17 22:13 10/28/17 23:12 Temperature 97.7 F Pulse Rate 100 H 106 H 107 H Respiratory Rate 20 24 17 Blood Pressure 107/75 Pulse Oximetry 100 99 10/28/17 23:13 10/29/17 00:00 10/29/17 00:16 Temperature 97.6 F Pulse Rate 104 H 106 H Respiratory Rate 18 19 Blood Pressure 105/48 L 86/56 L Pulse Oximetry 100 100 99 10/29/17 01:13 10/29/17 02:13 10/29/17 03:13 Temperature Pulse Rate 104 H 100 H 102 H Respiratory Rate 18 18 23 Blood Pressure 92/48 L 86/54 L 110/58 L Pulse Oximetry 99 99 100 10/29/17 04:13 10/29/17 04:35 10/29/17 04:45 Temperature 97.6 F Pulse Rate 107 H 101 H Respiratory Rate 20 18 Blood Pressure 83/56 L Pulse Oximetry 100 100 10/29/17 05:00 10/29/17 06:00 10/29/17 07:00 Temperature 97.6 F Pulse Rate 112 H 116 H 110 H Respiratory Rate 21 19 20 Blood Pressure 106/54 L 99/52 L Pulse Oximetry 100 100 100 10/29/17 07:49 10/29/17 07:51 10/29/17 08:00 Temperature Pulse Rate 119 H 114 H Respiratory Rate 21 18 Blood Pressure 100/51 L Pulse Oximetry 100 100 10/29/17 08:13 10/29/17 09:00 10/29/17 10:00 Temperature Pulse Rate 110 H 114 H 110 H Respiratory Rate 18 19 16 Blood Pressure 111/53 L 105/64 Pulse Oximetry 99 100 100 10/29/17 11:31 10/29/17 11:32 Temperature Pulse Rate 116 H Respiratory Rate 20 Blood Pressure Pulse Oximetry 93 L I&O: Intake & Output 10/27/17 10/28/17 10/29/17 10/30/17 06:59 06:59 06:59 06:59 Intake Total 1400 / 1400 2691 / 2691 250 / 250 Output Total 2580 / 2580 1025 / 1025 Balance -1180 / -1180 1666 / 1666 250 / 250 Weight 150 lb 9.211 oz 151 lb 3.794 oz 151 lb 10.848 oz Physical Exam: CONSTITUTIONAL/GENERAL: This is an adequately nourished patient, in mild distress. TUBES/LINES/DRAINS: Left IJ, JUDITH PIV, NGT SKIN: Blisters to bilateral forearms. Ecchymoses on upper extremities. Skin temperature appropriate. Not diaphoretic. HEAD: Atraumatic. Normocephalic. EYES: Pupils equal and round and reactive. Extraocular motions intact. No scleral icterus. No injection or drainage. Fundi not examined. ENT: Hearing grossly normal. Nose without bleeding or purulent drainage. NGT to right nare. Throat without visible erythema, exudates, masses, or lesions. NECK: Trachea midline. Supple, nontender. No palpable thyroid enlargement or nodularity. CARDIOVASCULAR: Irregular rhythm, tachycardic rate, no rub murmur or gallop. No JVD. RESPIRATORY/CHEST: Symmetric, unlabored respirations. Diminished, coarse to auscultation. Bibasilar crackles. GASTROINTESTINAL: Abdomen firm, nondistended, tender to light palpation. Unable to palpate for organomegaly secondary to tenderness. Bowel sounds present. GENITOURINARY: Without palpable bladder distension. MUSCULOSKELETAL: Extremities without clubbing, cyanosis, or edema. No joint tenderness or effusion noted. No calf tenderness. No mottling or clubbing. LYMPHATICS: No palpable cervical or supraclavicular adenopathy. NEUROLOGICAL: Awake, weak, voice is very soft. Moves all extremities. Follows directions. PSYCHIATRIC: Mild agitation. . Diagnostic Tests Laboratory: Laboratory Results - last 72 hr 10/26/17 10/27/17 10/27/17 17:59 00:37 04:25 CBC w Diff WBC RBC Hgb Hct MCV MCH MCHC RDW Plt Count MPV Neut % (Auto) Lymph % (Auto) [place] % (Auto) Eos % (Auto) Baso % (Auto) Neut # (Auto) Lymph # (Auto) [place] # (Auto) Eos # (Auto) Baso # (Auto) WBC Differential Differential Comment Sodium 149 H Potassium 4.2 Chloride 107 Carbon Dioxide 39.0 H Anion Gap 3 L BUN 66 H Creatinine 1.60 H Estimated GFR 43 L POC Glucose 334 H 336 H Random Glucose 197 H Calcium 8.2 L Phosphorus 2.9 Magnesium 2.6 H Total Bilirubin 0.7 AST 19 ALT 31 Alkaline Phosphatase 90 Total Protein 6.3 L D Albumin 2.9 L 10/27/17 10/27/17 10/27/17 04:25 12:15 18:08 CBC w Diff Auto diff final WBC 16.5 H RBC 3.94 L Hgb 10.7 L Hct 34.3 L MCV 87.1 MCH 27.2 MCHC 31.2 L RDW 15.2 Plt Count 205 MPV 8.4 Neut % (Auto) 94.7 H Lymph % (Auto) 1.1 L [place] % (Auto) 4.0 Eos % (Auto) 0.1 Baso % (Auto) 0.1 Neut # (Auto) 15.6 H Lymph # (Auto) 0.2 L [place] # (Auto) 0.7 Eos # (Auto) 0.0 Baso # (Auto) 0.0 WBC Differential . Differential Comment . Sodium Potassium Chloride Carbon Dioxide Anion Gap BUN Creatinine Estimated GFR POC Glucose 389 H 385 H Random Glucose Calcium Phosphorus Magnesium Total Bilirubin AST ALT Alkaline Phosphatase Total Protein Albumin 10/28/17 10/28/17 10/28/17 00:05 00:18 04:35 CBC w Diff Auto diff final WBC 23.1 H RBC 3.12 L Hgb 8.5 L D 8.7 L Hct 26.4 L 27.3 L MCV 87.3 MCH 27.9 MCHC 32.0 RDW 15.1 Plt Count 157 MPV 8.7 Neut % (Auto) 96.1 H Lymph % (Auto) 1.6 L [place] % (Auto) 2.1 Eos % (Auto) 0.1 Baso % (Auto) 0.1 Neut # (Auto) 22.2 H Lymph # (Auto) 0.4 L [place] # (Auto) 0.5 Eos # (Auto) 0.0 Baso # (Auto) 0.0 WBC Differential . Differential Comment . Sodium Potassium Chloride Carbon Dioxide Anion Gap BUN Creatinine Estimated GFR POC Glucose 388 H Random Glucose Calcium Phosphorus Magnesium Total Bilirubin AST ALT Alkaline Phosphatase Total Protein Albumin 10/28/17 10/28/17 10/28/17 04:35 13:22 13:23 CBC w Diff WBC RBC Hgb Hct MCV MCH MCHC RDW Plt Count MPV Neut % (Auto) Lymph % (Auto) [place] % (Auto) Eos % (Auto) Baso % (Auto) Neut # (Auto) Lymph # (Auto) [place] # (Auto) Eos # (Auto) Baso # (Auto) WBC Differential Differential Comment Sodium 148 H Potassium 4.7 Chloride 106 Carbon Dioxide 38.5 H Anion Gap 4 L BUN 66 H Creatinine 1.50 H Estimated GFR 46 L POC Glucose 445 H 387 H Random Glucose 224 H Calcium 8.2 L Phosphorus Magnesium Total Bilirubin AST ALT Alkaline Phosphatase Total Protein Albumin 10/28/17 10/28/17 10/29/17 17:37 23:45 04:40 CBC w Diff WBC 18.8 H RBC 3.01 L Hgb 8.3 L Hct 26.2 L MCV 86.9 MCH 27.6 MCHC 31.8 L RDW 15.4 Plt Count 125 L MPV 8.9 Neut % (Auto) Lymph % (Auto) [place] % (Auto) Eos % (Auto) Baso % (Auto) Neut # (Auto) Lymph # (Auto) [place] # (Auto) Eos # (Auto) Baso # (Auto) WBC Differential Differential Comment Sodium Potassium Chloride Carbon Dioxide Anion Gap BUN Creatinine Estimated GFR POC Glucose 191 H 228 H Random Glucose Calcium Phosphorus Magnesium Total Bilirubin AST ALT Alkaline Phosphatase Total Protein Albumin 10/29/17 10/29/17 10/29/17 04:40 05:54 12:28 CBC w Diff WBC RBC Hgb Hct MCV MCH MCHC RDW Plt Count MPV Neut % (Auto) Lymph % (Auto) [place] % (Auto) Eos % (Auto) Baso % (Auto) Neut # (Auto) Lymph # (Auto) [place] # (Auto) Eos # (Auto) Baso # (Auto) WBC Differential Differential Comment Sodium 150 H Potassium 4.4 Chloride 107 Carbon Dioxide 40.9 H Anion Gap 2 L BUN 63 H Creatinine 1.40 H Estimated GFR 50 L POC Glucose 169 H 304 H Random Glucose 108 H D Calcium 8.5 Phosphorus Magnesium Total Bilirubin AST ALT Alkaline Phosphatase Total Protein Albumin Result Diagrams: 10/29/17 04:40 10/29/17 04:40 Microbiology: Microbiology 10/28/17 00:05 Stool Occult Blood (NUZHAT) - Final Stool Hemoccult positive Imaging: Chest X-Ray 10/18/17 20:27 CONCLUSION: 1. Advanced COPD. 2. No evidence of acute airspace disease or significant congestion. Chest X-Ray 10/18/17 21:47 CONCLUSION: Status post intubation with tip of the endotracheal tube at the thoracic inlet. Gastric tube position of nasogastric tube. Hyperinflated lungs with diffuse interstitial vascular prominence. Chest X-Ray 10/19/17 02:57 CONCLUSION: Modest worsening left base consolidation. Chest X-Ray 10/20/17 06:00 CONCLUSION: No significant change. Chest X-Ray 10/21/17 06:00 CONCLUSION: No significant change. Chest X-Ray 10/23/17 06:00 CONCLUSION: Unchanged left basilar consolidation. Chest X-Ray 10/24/17 00:00 CONCLUSION: Unchanged exam with left lower lobe infiltrate and diffuse chronic interstitial markings. Head CT 10/24/17 00:00 CONCLUSION: Unremarkable study except for chronic sinusitis. Abdomen/Bladder Ultrasound 10/25/17 00:00 CONCLUSION: 1. Left renal cyst, simple in appearance. 2. Trace amount of free fluid in the pelvis. Chest X-Ray 10/25/17 06:00 CONCLUSION: Unchanged exam as detailed above. Chest X-Ray 10/27/17 00:00 CONCLUSION: Stable chest x-ray with bibasilar opacities representing small pleural effusions with associated compressive atelectasis and/or consolidation. Procedures: 10/18: Intubation 10/20: Left IJ central line insertion. . Patient/Family Conference Present at Family Conference: No family is available at bedside. The telephone number provided for his daughter is ringing busy continually, likely disconnected. [employer] has been requested. I did speak with his live-in caregiver, Jo who is attempting to find any further contact information that would be available. . Family Conference Location: Telephone Issues Discussed: * Palliative care role, purpose, approach * Additional medical, psychosocial, and spiritual history * Patients general health, functional status, and cognitive changes in the months leading up to the current hospitalization * Patient/family understanding of the current medical problems * Patient/family understanding of prognosis * Patients goals of care as best understood from advance directives and/or conversations and/or values * Current medical treatment options and benefits/burdens of those options * Likely scenarios comparing ongoing aggressive care with a transition to comfort measures only * Questions answered to the best of my ability * Palliative care contact information provided Assessment and Plan Pertinent Non-Medical Issues: Psychosocial: He was born in the [facility] and initially moved to [place] 30 years ago, then subsequently moved to [place]. He has 1 daughter, Cori, who is thus far been unreachable. Spiritual: Decorating Machine Operator available Legal: No advance directives. Ethical issues impacting care: None noted. . Important Contacts: Daughter: Cori Reynolds - (number rings busy), ( voicemail full), (settings rings then changes to busy signal) Accurints pending Caregiver: Jogreta Wheat . Prognosis: His prognosis is guarded. He is of advanced age with a long history of tobacco abuse, oxygen dependent COPD and pneumonia. He is profoundly weak and failing swallow evaluations, placing him at higher risk for aspiration. Per prior infectious disease note in 2013, he was diagnosed with latent TB. He is at risk for further respiratory complications, decline and readmissions. He also has atrial fibrillation/flutter with rapid ventricular response, placing him at higher risk for CVA. He does have a history of a TIA in the past. Anticoagulation would be difficult as he also had an episode of Hemoccult positive stools during this admission. No echocardiogram is available for this visit, but may facilitate further prognostication. He would be hospice appropriate if goals were consistent. . Code Status: Full Code (By default, pending location of decision-maker) Plan: PLAN: Legal decision maker: Patient is not capacitated at this time for unsupported decision-making. Attempts are in progress to locate his daughter, Cori, who by [place] statutes would be the proxy decision maker as the patient is and reportedly has only one child Goals: To be determined CODE STATUS: FULL CODE by default, pending location of decision-maker. SYMPTOMS: * Dyspnea: He remains significantly dyspneic, likely multifactorial to include pneumonia, baseline COPD, cardiac arrhythmia and generalized weakness. Pulmonology is following and supporting with nebulizers, inhalers, steroids. While tolerating nasal cannula at 2 L and saturating adequately, he is visibly dyspneic and distressed. He is at elevated risk for recurrent intubation. Attempting to find his daughter to assist in making decisions for goals of care. * Weakness: He has generalized weakness and debility likely secondary to chronic disease, sedentary behavior and poor self-care. Physical therapy is following, however patient will likely need rehab prior to discharge home. * Pain: He complains of left upper and lower quadrant pain and is tender with any palpation. He is having regular bowel movements and does have oxycodone available as needed for pain, however has not taken any doses of that. Would recommend further workup if discomfort continues. SUMMARY This is a 67-year-old Lebanese male with a long history of tobacco use, severe COPD, asthma, atrial fibrillation with rapid ventricular response admitted with pneumonia and ventilatory dependent respiratory failure. He is now extubated however weak and distressed. He remains at elevated risk of recurrent respiratory failure and reintubation. At this time we have been unable to locate his daughter but [employer] has been requested and the patient's caregiver , Jo Wheat, is assisting with whatever information is available at his home. At this time he is unable to make his own decisions, but would be hospice appropriate if goals were consistent. Palliative care will continue to follow the patient during hospital course as condition evolves, to assist patient/decision-maker with understanding of their medical conditions, weighing benefits/burdens of treatment options, for clarification of goals of treatment. Additionally will assist with any symptoms of palliative concern. . Appreciation Thank you for the opportunity to participate in the care of Dion Moore JR. Attestation Attestation: To help prompt me to consider important information that might be impacting today's encounter and assessment, information from prior notes written by myself or my colleagues may have been "brought forward" into today's note. My signature on this note, however, is an attestation that I personally performed the exam, history, and/or decision-making noted today, and, unless otherwise indicated, the interactions with patient, family, and staff as well as the review of records all occurred today. I also attest that the listed assessment and stated plan reflect my best clinical judgment today based on the combination of historical information, prior notes, and today's exam/ interactions. When time spent is documented, it refers only to time spent today by the signer, or if indicated, combined time spent today by collaborating physician/nurse practitioner. .
[2017-10-29] MEDS: Montelukast 10 MG Tablet PO SCH (18:42)
[2017-10-29] MEDS: Enoxaparin Inj 30 MG/0.3 ML Syringe SQ SCH (18:42)
--- NOTE | 2017-10-29 18:43 | US ---
EXAM DATE: 10/29/2017 6:39 PM EDT AGE/SEX: 67 years / Male INDICATIONS: Right leg swelling. CLINICAL DATA: This is the patient's initial encounter. Patient reports that signs and symptoms have been present for 2 days and indicates a pain score of Nonresponsive. MEDICAL/SURGICAL HISTORY: . Chronic obstructive pulmonary disease. Hypertension. None. COMPARISON: No prior exams available for comparison. TECHNIQUE: Venous ultrasound of both lower extremities was performed from the inguinal ligament to t he proximal calf. Real-time, color Doppler and spectral tracing, compression and augmentation techni ques were used. FINDINGS: Normal compression of the deep venous system from the inguinal region to the proximal calf . No echogenic clot is seen. Normal response of the venous system to augmentation and respiration. CONCLUSION: 1. The study is negative for lower extremity deep venous thrombosis. Electronically signed by: Cristofer Hobbs MD 10/29/2017 6:42 PM EDT
[2017-10-29] MEDS ORDERED: Metoprolol Inj 5 MG/5 ML Vial IV.PUSH ONE (19:53)
[2017-10-29] MEDS: Mirtazapine 15 MG Tablet NG/OG SCH (20:08)
[2017-10-29] MEDS: Insulin Detemir Inj 1,000 UNIT/10 ML Vial SQ SCH (20:46)
[2017-10-30] MEDS: Insulin NovoLOG Aspart Correctional Sugar Inj SQ SCH ×4 (01:17→18:50)
[2017-10-30] MEDS: Pantoprazole Inj 40 MG Vial IV.PUSH SCH ×2 (05:38→18:52)
[2017-10-30 06:32] LABS: Baso % (Auto) 0.1 % (0.0-2.0); Eos % (Auto) 0.1 % (0.0-4.0); Hematocrit 25.2 % (39.0-51.0); Hemoglobin 8.3 gm/dL (13.0-17.0); Lymph # (Auto) 0.2 th/mm3 (1.0-4.8); Lymph % (Auto) 0.7 % (9.0-44.0); Mean Corpuscular HGB Conc 32.9 % (32.0-36.0); Mean Corpuscular Hemoglobin 28.8 pg (27.0-34.0); Mean Corpuscular Volume 87.4 fL (80.0-100.0); Mean Platelet Volume 8.9 fL (7.0-11.0); Mono # (Auto) 0.2 th/mm3 (0.0-0.9); Mono % (Auto) 0.9 % (0.0-8.0); Neut # (Auto) 26.5 th/mm3 (1.8-7.7); Neut % (Auto) 98.2 % (16.0-70.0); Platelet Count 138 th/mm3 (150-450); Red Blood Count 2.88 mil/mm3 (4.50-5.90); Red Cell Distribution Width 15.3 % (11.6-17.2); White Blood Count 26.9 th/mm3 (4.0-11.0)
[2017-10-30 06:37] LABS: Potassium 4.6 meq/L (3.5-5.1)
[2017-10-30 06:43] LABS: Calcium 8.3 mg/dL (8.5-10.1); Carbon Dioxide 35.8 meq/L (21.0-32.0)
[2017-10-30] MEDS: Amiodarone 200 MG Tablet PO SCH (09:21)
[2017-10-30] MEDS: Metoprolol Tartrate 50 MG Tablet PO SCH ×2 (09:21→18:51)
[2017-10-30] MEDS: Finasteride 5 MG Tablet PO SCH (09:22)
[2017-10-30] MEDS: MethylPREDNISolone Sod Succinate Inj 40 MG/ML Vial IV.PUSH SCH ×2 (09:23→22:02)
[2017-10-30] MEDS: Senna/Docusate Sodium 8.6/50 MG Tablet PO SCH ×2 (09:50→22:01)
--- NOTE | 2017-10-30 11:49 | P.PNIM ---
Subjective Interval history: The pt was resting in bed comfortably. He denied any acute complaints. Discussed with nursing at the bedside. The pt apparently had a fast heart rate last night and had a positive Hemoccult per nursing. Physical Exam Vital signs: Vital Signs 10/29/17 12:00 10/29/17 13:00 10/29/17 14:00 Temperature 97.8 F Pulse Rate 110 H 118 H 120 H Respiratory Rate 22 25 H 22 Blood Pressure 110/62 137/65 122/66 Pulse Oximetry 96 99 100 10/29/17 15:00 10/29/17 15:15 10/29/17 15:17 Temperature Pulse Rate 136 H 134 H Respiratory Rate 28 H 25 H Blood Pressure 138/71 Pulse Oximetry 87 L 99 10/29/17 16:00 10/29/17 17:00 10/29/17 18:00 Temperature 97.4 F L Pulse Rate 130 H 130 H 134 H Respiratory Rate 24 23 22 Blood Pressure 145/73 H 118/71 139/71 Pulse Oximetry 100 100 10/29/17 19:00 10/29/17 19:15 10/29/17 20:00 Temperature Pulse Rate 156 H 124 H 116 H Respiratory Rate 26 H 23 Blood Pressure 129/69 Pulse Oximetry 100 100 10/29/17 20:13 10/29/17 21:00 10/29/17 21:30 Temperature Pulse Rate 140 H 114 H Respiratory Rate 25 H 21 Blood Pressure 134/65 149/67 H Pulse Oximetry 100 100 91 L 10/29/17 22:13 10/29/17 22:55 10/29/17 23:13 Temperature Pulse Rate 114 H 114 H 114 H Respiratory Rate 25 H 23 24 Blood Pressure 138/64 131/65 Pulse Oximetry 94 L 92 L 10/30/17 00:00 10/30/17 01:00 10/30/17 01:13 Temperature 97.3 F L Pulse Rate 102 H 112 H Respiratory Rate 26 H 21 Blood Pressure 145/64 H 109/63 Pulse Oximetry 97 96 84 L 10/30/17 02:13 10/30/17 03:00 10/30/17 04:00 Temperature 98.2 F Pulse Rate 112 H 112 H 116 H Respiratory Rate 21 22 19 Blood Pressure 119/55 L 129/56 L 112/70 Pulse Oximetry 96 96 95 10/30/17 05:13 10/30/17 06:13 10/30/17 07:00 Temperature Pulse Rate 114 H 118 H Respiratory Rate 21 21 Blood Pressure 111/55 L 111/61 Pulse Oximetry 97 97 95 10/30/17 07:37 10/30/17 07:38 10/30/17 10:56 Temperature Pulse Rate 118 H 119 H Respiratory Rate 18 17 Blood Pressure Pulse Oximetry 95 10/30/17 11:10 Temperature Pulse Rate Respiratory Rate Blood Pressure Pulse Oximetry 99 Intake & Output 10/29/17 10/30/17 10/30/17 18:59 06:59 18:59 Intake Total 1735 / 1735 3104 / 3104 Output Total 300 / 300 Balance 1735 / 1735 2804 / 2804 Weight 67.8 kg Intake: Oral 0 / 0 Tube Feeding 515 / 515 515 / 515 Tube Irrigant 60 / 60 Water Bolus Amount 1220 / 1220 1220 / 1220 Other 1309 / 1309 Output: Urine 300 / 300 Other: Post Void Residual 50 # Voids 4 # Incontinent Voids 4 4 Date of Last Bowel Movement 10/29/17 10/30/17 # Bowel Movements 2 # Incontinent Bowel Movements 2 3 Narrative: GENERAL: Alert, NAD. NG tube in place. SKIN: Warm and dry. HEAD: Normocephalic. EYES: No scleral icterus. No injection or drainage. NECK: Supple, trachea midline. No JVD or lymphadenopathy. CARDIOVASCULAR: Irreg Irreg, tachycardic without murmurs, gallops, or rubs. RESPIRATORY: Breath sounds equal bilaterally. No accessory muscle use. GASTROINTESTINAL: Abdomen soft, non-tender, nondistended. MUSCULOSKELETAL: No cyanosis. RLE 2+ edema and LLE 1+ edema. BACK: Nontender without obvious deformity. No CVA tenderness. - Urinary Catheter Management Indwelling Urethral Catheter Cath placed during this visit: yes, but has since been removed by the nurse Reason for continuing: Acute urinary retention Insertion date: 10/18/17 Insertion time: 00:15 Removal date: 10/27/17 Removal time: 12:00 Results - Labs CBC & Chem 7: 10/30/17 05:00 10/30/17 05:00 Laboratory Results - last 24 hr 10/29/17 10/29/17 10/29/17 12:28 18:37 20:41 CBC w Diff WBC RBC Hgb Hct MCV MCH MCHC RDW Plt Count MPV Neut % (Auto) Lymph % (Auto) [place] % (Auto) Eos % (Auto) Baso % (Auto) Neut # (Auto) Lymph # (Auto) [place] # (Auto) Eos # (Auto) Baso # (Auto) WBC Differential Differential Comment Sodium Potassium Chloride Carbon Dioxide Anion Gap BUN Creatinine Estimated GFR POC Glucose 304 H 388 H 359 H Random Glucose Calcium 10/30/17 10/30/17 10/30/17 00:51 05:00 05:00 CBC w Diff Auto diff final WBC 26.9 H RBC 2.88 L Hgb 8.3 L Hct 25.2 L MCV 87.4 MCH 28.8 MCHC 32.9 RDW 15.3 Plt Count 138 L MPV 8.9 Neut % (Auto) 98.2 H Lymph % (Auto) 0.7 L [place] % (Auto) 0.9 Eos % (Auto) 0.1 Baso % (Auto) 0.1 Neut # (Auto) 26.5 H Lymph # (Auto) 0.2 L [place] # (Auto) 0.2 Eos # (Auto) 0.0 Baso # (Auto) 0.0 WBC Differential . Differential Comment . Sodium 147 H Potassium 4.6 Chloride 106 Carbon Dioxide 35.8 H Anion Gap 5 BUN 63 H Creatinine 1.30 Estimated GFR 55 L POC Glucose 121 H Random Glucose 70 L Calcium 8.3 L 10/30/17 10/30/17 05:18 09:49 CBC w Diff WBC RBC Hgb Hct MCV MCH MCHC RDW Plt Count MPV Neut % (Auto) Lymph % (Auto) [place] % (Auto) Eos % (Auto) Baso % (Auto) Neut # (Auto) Lymph # (Auto) [place] # (Auto) Eos # (Auto) Baso # (Auto) WBC Differential Differential Comment Sodium Potassium Chloride Carbon Dioxide Anion Gap BUN Creatinine Estimated GFR POC Glucose 101 186 H Random Glucose Calcium Microbiology 10/29/17 15:35 Stool Stool Occult Blood (NUZHAT) - Final Hemoccult positive - Imaging Impressions Venous Doppler Study 10/29/17 00:00 CONCLUSION: 1. The study is negative for lower extremity deep venous thrombosis. Assessment and Plan - Plan Mr. Moore is a 67 year old male with a history of asthma, COPD, atrial fibrillation, hyperlipidemia, TIA and hypertension who was admitted to the hospital due to shortness of breath on 10/18/2017. He typically uses 2 L of oxygen at home due to COPD. In the ER his ABG was pH 7.22 PCO2 98 and PO2 96 on 2 L nasal cannula. Chest x-ray showed left lower lobe pneumonia. Patient was emergently intubated due to shortness of breath with hypercapnic respiratory failure. Patient was started on IV Solu-Medrol as well as Rocephin and azithromycin. He received IV fluids due to hypotension. Also received IV insulin, D50 as well as Kayexalate and bicarb for hyperkalemia. He was extubated on 10/23/2017. After extubation, patient was continued to be managed by critical care. He required BiPAP. Precedex was weaned off. His care was transferred to hospitalist service on 10/29/2017. Acute hypercapnic respiratory failure Left lower lobe pneumonia COPD - Using BiPAP at night. Currently on NC. - O2 to keep O2 sat > 88%. - Continue DuoNeb, Solu-medrol 40mg IV Q12hrs. Continue to wean off steroids. - Patient finished course of antibiotics. -palliative care consult appreciated. Atrial fibrillation Hypertension - Currently on Metoprolol 50mg Q12hrs. Increase as needed. - Currently on Amiodarone 100mg Qday. - Currently normotensive. IF needed, consider Amlodipine for BP instead of scheduled clonidine. Diabetes mellitus - Patient was only on sliding scale insulin. - Will start patient on Levemir 12 units QHS. - BG in 350-380 range. Goal 140-180. Acute kidney injury - Creatinine continues to improve. 2.0 --> 1.40. Right lower ext edema US negative for DVT. -keep leg elevated. Hemoccult positive Hemoglobin has been stable. -follow CBC and consult GI if hemoglobin starts to decline. -continue PPI BID. PPx: Lovenox.
--- NOTE | 2017-10-30 13:58 | ECG ---
Date Performed: 10/29/2017 Time Performed: 14:27:34 PTAGE: 67 years EKG: ATRIAL FLUTTER/TACHYCARDIA WITH RAPID VENTRICULAR RESPONSE NONSPECIFIC T-WAVE ABNORMALITY A BNORMAL RHYTHM ECG Since the PREVIOUS TRACING , no significant change noted PREVIOUS TRACIN10/29/2017 12.07 DOCTOR: Yessenia Chris Interpretating Date/Time 10/30/2017 13:55:57
--- NOTE | 2017-10-30 14:27 | ECG ---
Date Performed: 10/29/2017 Time Performed: 12:07:33 PTAGE: 67 years EKG: ATRIAL FIBRILLATION WITH RAPID VENTRICULAR RESPONSE NONSPECIFIC T-WAVE ABNORMALITY ABNORMAL RHYTHM ECG Compared to PREVIOUS TRACING , the patient has devloped atrial fibrillation. The minimal nonspecific ST-T wave changes are new. Clinical correlation is advised. PREVIOUS TRACIN10/19/2017 04.46 DOCTOR: Yessenia Chris Interpretating Date/Time 11/03/2017 07:28:15
--- NOTE | 2017-10-30 16:03 | P.PNPAL ---
Reason for Visit Reason for visit: a. To assist with evaluation and management of symptoms including: Dyspnea, weakness, pain b. To assist medical decision maker(s) with: better understanding of current medical conditions; weighing benefits/burdens of medical treatment options; making medical treatment decisions. Subjective Subjective/Interval History: Patient seen for medically necessary follow-up to evaluate management of symptoms to include dyspnea, weakness, pain and assist in goals of medical treatment. His dyspnea is slightly improved today. His oxygenation is adequate on 2 L nasal cannula. He remains mildly tachypneic 25-30 breaths per minute. He describes it as moderate severity, exacerbated by laying flat and activity, improved by rest and oxygen. Carbon dioxide remains elevated by BMP at 35.8. He has demonstrated CO2 retention since admission with admission level of 98 mmHg. He is receiving acetylcysteine every 6 hours nebulized. He remains profoundly weak, receiving physical therapy, but performing only active assisted range of motion with bilateral lower extremities. He requires support for sitting. He becomes tachycardic with minimal physical activity. Pain is generalized however indicates that it is in his genital area and his arms, constant and moderate severity, due to his weakness, he is unable to further quantify or qualify the pain. He received oxycodone 2.5 mg today at 3 PM and at this evaluation notes that the pain is better. . . Family/Friend Interactions: Located his daughter Cori Reynolds via Google search and advised her of her father' s hospitalization. She works as a dispatcher for the [employer] department and works nights. She was very upset and made an appointment to meet with me this afternoon at the hospital. Upon arrival she evaluated her father's condition, spoke with him and then in private conversation stated that his "caregiver", Jo Wheat, is a local prostitute with a history of drug use that she feels has been taking advantage of her father and has requested no further contact be allowed in the hospital. This has been conveyed to security to prevent unauthorized visits. Updated her as to the clinical findings, hospital course, palliative care purpose and focus. She has requested a hospice consultation for information but wishes to take the night and process all the information she received today prior to making that decision.After discussion with her father, she felt unable to make the decision for CODE STATUS. Her brother and sister are arriving this weekend and she plans to meet with me again at 9:am Thursday to readdress. She is aware that his condition is poor and that he is at risk for reintubation and other complications. . Objective Vital Signs: Vital Signs 10/29/17 16:00 10/29/17 17:00 10/29/17 18:00 Temperature 97.4 F L Pulse Rate 130 H 130 H 134 H Respiratory Rate 24 23 22 Blood Pressure 145/73 H 118/71 139/71 Pulse Oximetry 100 100 10/29/17 19:00 10/29/17 19:15 10/29/17 20:00 Temperature Pulse Rate 156 H 124 H 116 H Respiratory Rate 26 H 23 Blood Pressure 129/69 Pulse Oximetry 100 100 10/29/17 20:13 10/29/17 21:00 10/29/17 21:30 Temperature Pulse Rate 140 H 114 H Respiratory Rate 25 H 21 Blood Pressure 134/65 149/67 H Pulse Oximetry 100 100 91 L 10/29/17 22:13 10/29/17 22:55 10/29/17 23:13 Temperature Pulse Rate 114 H 114 H 114 H Respiratory Rate 25 H 23 24 Blood Pressure 138/64 131/65 Pulse Oximetry 94 L 92 L 10/30/17 00:00 10/30/17 01:00 10/30/17 01:13 Temperature 97.3 F L Pulse Rate 102 H 112 H Respiratory Rate 26 H 21 Blood Pressure 145/64 H 109/63 Pulse Oximetry 97 96 84 L 10/30/17 02:13 10/30/17 03:00 10/30/17 04:00 Temperature 98.2 F Pulse Rate 112 H 112 H 116 H Respiratory Rate 21 22 19 Blood Pressure 119/55 L 129/56 L 112/70 Pulse Oximetry 96 96 95 10/30/17 05:13 10/30/17 06:13 10/30/17 07:00 Temperature Pulse Rate 114 H 118 H Respiratory Rate 21 21 Blood Pressure 111/55 L 111/61 Pulse Oximetry 97 97 95 10/30/17 07:13 10/30/17 07:37 10/30/17 07:38 Temperature Pulse Rate 122 H 118 H Respiratory Rate 20 18 Blood Pressure 129/58 L Pulse Oximetry 97 95 10/30/17 08:00 10/30/17 08:14 10/30/17 09:14 Temperature Pulse Rate 129 H 120 H 122 H Respiratory Rate 20 22 Blood Pressure 125/49 L 146/64 H Pulse Oximetry 96 96 10/30/17 10:14 10/30/17 10:56 10/30/17 11:10 Temperature Pulse Rate 100 H 119 H Respiratory Rate 21 17 Blood Pressure 130/73 Pulse Oximetry 100 99 10/30/17 11:14 10/30/17 12:14 10/30/17 13:14 Temperature Pulse Rate 110 H 116 H 112 H Respiratory Rate 27 H 25 H 23 Blood Pressure 145/66 H 137/65 136/67 Pulse Oximetry 99 98 99 10/30/17 15:35 Temperature Pulse Rate 123 H Respiratory Rate 25 H Blood Pressure Pulse Oximetry Intake & Output 10/29/17 10/30/17 10/30/17 18:59 06:59 18:59 Intake Total 1735 / 1735 3104 / 3104 Output Total 300 / 300 Balance 1735 / 1735 2804 / 2804 Weight 149 lb 7.574 oz Intake: Oral 0 / 0 Tube Feeding 515 / 515 515 / 515 Tube Irrigant 60 / 60 Water Bolus Amount 1220 / 1220 1220 / 1220 Other 1309 / 1309 Output: Urine 300 / 300 Other: Post Void Residual 50 # Voids 4 # Incontinent Voids 4 4 Date of Last Bowel Movement 10/29/17 10/30/17 10/30/17 # Bowel Movements 2 # Incontinent Bowel Movements 2 3 Physical Exam: CONSTITUTIONAL/GENERAL: This is an adequately nourished patient, in mild distress. TUBES/LINES/DRAINS: Left IJ, JUDITH PIV, NGT SKIN: Excoriation and skin tears to bilateral forearms. Ecchymoses on upper extremities. Skin temperature appropriate. Not diaphoretic. HEAD: Atraumatic. Normocephalic. EYES: Pupils equal and round and reactive. Extraocular motions intact. No scleral icterus. No injection or drainage. Fundi not examined. ENT: Hearing grossly normal. Nose without bleeding or purulent drainage. NGT to right nare. Throat without visible erythema, exudates, masses, or lesions. NECK: Trachea midline. Supple, nontender. No palpable thyroid enlargement or nodularity. CARDIOVASCULAR: Irregular rhythm, tachycardic rate, no rub murmur or gallop. No JVD. RESPIRATORY/CHEST: Symmetric, unlabored respirations. Diminished, coarse to auscultation. Bibasilar crackles. GASTROINTESTINAL: Abdomen firm, nondistended, tender to light palpation. Unable to palpate for organomegaly secondary to tenderness. Bowel sounds present. GENITOURINARY: Without palpable bladder distension. Moderately severe penile and scrotal edema. MUSCULOSKELETAL: Extremities without clubbing or cyanosis, 2-3+ dependent, pitting edema. No joint tenderness or effusion noted. No calf tenderness. No mottling or clubbing. LYMPHATICS: No palpable cervical or supraclavicular adenopathy. NEUROLOGICAL: Awake, weak, voice is very soft. Moves all extremities. Follows directions. PSYCHIATRIC: Very happy at seeing his daughter. . Diagnostic Tests Laboratory: Laboratory Results - last 72 hr 10/27/17 10/28/17 10/28/17 18:08 00:05 00:18 CBC w Diff WBC RBC Hgb 8.5 L D Hct 26.4 L MCV MCH MCHC RDW Plt Count MPV Neut % (Auto) Lymph % (Auto) Davison % (Auto) Eos % (Auto) Baso % (Auto) Neut # (Auto) Lymph # (Auto) Davison # (Auto) Eos # (Auto) Baso # (Auto) WBC Differential Differential Comment Sodium Potassium Chloride Carbon Dioxide Anion Gap BUN Creatinine Estimated GFR POC Glucose 385 H 388 H Random Glucose Calcium 10/28/17 10/28/17 10/28/17 04:35 04:35 13:22 CBC w Diff Auto diff final WBC 23.1 H RBC 3.12 L Hgb 8.7 L Hct 27.3 L MCV 87.3 MCH 27.9 MCHC 32.0 RDW 15.1 Plt Count 157 MPV 8.7 Neut % (Auto) 96.1 H Lymph % (Auto) 1.6 L Davison % (Auto) 2.1 Eos % (Auto) 0.1 Baso % (Auto) 0.1 Neut # (Auto) 22.2 H Lymph # (Auto) 0.4 L Davison # (Auto) 0.5 Eos # (Auto) 0.0 Baso # (Auto) 0.0 WBC Differential . Differential Comment . Sodium 148 H Potassium 4.7 Chloride 106 Carbon Dioxide 38.5 H Anion Gap 4 L BUN 66 H Creatinine 1.50 H Estimated GFR 46 L POC Glucose 445 H Random Glucose 224 H Calcium 8.2 L 10/28/17 10/28/17 10/28/17 13:23 17:37 23:45 CBC w Diff WBC RBC Hgb Hct MCV MCH MCHC RDW Plt Count MPV Neut % (Auto) Lymph % (Auto) Davison % (Auto) Eos % (Auto) Baso % (Auto) Neut # (Auto) Lymph # (Auto) Davison # (Auto) Eos # (Auto) Baso # (Auto) WBC Differential Differential Comment Sodium Potassium Chloride Carbon Dioxide Anion Gap BUN Creatinine Estimated GFR POC Glucose 387 H 191 H 228 H Random Glucose Calcium 10/29/17 10/29/17 10/29/17 04:40 04:40 05:54 CBC w Diff WBC 18.8 H RBC 3.01 L Hgb 8.3 L Hct 26.2 L MCV 86.9 MCH 27.6 MCHC 31.8 L RDW 15.4 Plt Count 125 L MPV 8.9 Neut % (Auto) Lymph % (Auto) Davison % (Auto) Eos % (Auto) Baso % (Auto) Neut # (Auto) Lymph # (Auto) Davison # (Auto) Eos # (Auto) Baso # (Auto) WBC Differential Differential Comment Sodium 150 H Potassium 4.4 Chloride 107 Carbon Dioxide 40.9 H Anion Gap 2 L BUN 63 H Creatinine 1.40 H Estimated GFR 50 L POC Glucose 169 H Random Glucose 108 H D Calcium 8.5 10/29/17 10/29/17 10/29/17 12:28 18:37 20:41 CBC w Diff WBC RBC Hgb Hct MCV MCH MCHC RDW Plt Count MPV Neut % (Auto) Lymph % (Auto) Davison % (Auto) Eos % (Auto) Baso % (Auto) Neut # (Auto) Lymph # (Auto) Davison # (Auto) Eos # (Auto) Baso # (Auto) WBC Differential Differential Comment Sodium Potassium Chloride Carbon Dioxide Anion Gap BUN Creatinine Estimated GFR POC Glucose 304 H 388 H 359 H Random Glucose Calcium 10/30/17 10/30/17 10/30/17 00:51 05:00 05:00 CBC w Diff Auto diff final WBC 26.9 H RBC 2.88 L Hgb 8.3 L Hct 25.2 L MCV 87.4 MCH 28.8 MCHC 32.9 RDW 15.3 Plt Count 138 L MPV 8.9 Neut % (Auto) 98.2 H Lymph % (Auto) 0.7 L Davison % (Auto) 0.9 Eos % (Auto) 0.1 Baso % (Auto) 0.1 Neut # (Auto) 26.5 H Lymph # (Auto) 0.2 L Davison # (Auto) 0.2 Eos # (Auto) 0.0 Baso # (Auto) 0.0 WBC Differential . Differential Comment . Sodium 147 H Potassium 4.6 Chloride 106 Carbon Dioxide 35.8 H Anion Gap 5 BUN 63 H Creatinine 1.30 Estimated GFR 55 L POC Glucose 121 H Random Glucose 70 L Calcium 8.3 L 10/30/17 10/30/17 10/30/17 05:18 09:49 12:31 CBC w Diff WBC RBC Hgb Hct MCV MCH MCHC RDW Plt Count MPV Neut % (Auto) Lymph % (Auto) Davison % (Auto) Eos % (Auto) Baso % (Auto) Neut # (Auto) Lymph # (Auto) Davison # (Auto) Eos # (Auto) Baso # (Auto) WBC Differential Differential Comment Sodium Potassium Chloride Carbon Dioxide Anion Gap BUN Creatinine Estimated GFR POC Glucose 101 186 H 294 H Random Glucose Calcium Result Diagrams: 10/30/17 05:00 10/30/17 05:00 Microbiology: Microbiology 10/29/17 15:35 Stool Occult Blood (NUZHAT) - Final Stool Hemoccult positive 10/28/17 00:05 Stool Occult Blood (NUZHAT) - Final Stool Hemoccult positive Imaging: Chest X-Ray 10/18/17 20:27 CONCLUSION: 1. Advanced COPD. 2. No evidence of acute airspace disease or significant congestion. Chest X-Ray 10/18/17 21:47 CONCLUSION: Status post intubation with tip of the endotracheal tube at the thoracic inlet. Gastric tube position of nasogastric tube. Hyperinflated lungs with diffuse interstitial vascular prominence. Chest X-Ray 10/19/17 02:57 CONCLUSION: Modest worsening left base consolidation. Chest X-Ray 10/20/17 06:00 CONCLUSION: No significant change. Chest X-Ray 10/21/17 06:00 CONCLUSION: No significant change. Chest X-Ray 10/23/17 06:00 CONCLUSION: Unchanged left basilar consolidation. Chest X-Ray 10/24/17 00:00 CONCLUSION: Unchanged exam with left lower lobe infiltrate and diffuse chronic interstitial markings. Head CT 10/24/17 00:00 CONCLUSION: Unremarkable study except for chronic sinusitis. Abdomen/Bladder Ultrasound 10/25/17 00:00 CONCLUSION: 1. Left renal cyst, simple in appearance. 2. Trace amount of free fluid in the pelvis. Chest X-Ray 10/25/17 06:00 CONCLUSION: Unchanged exam as detailed above. Chest X-Ray 10/27/17 00:00 CONCLUSION: Stable chest x-ray with bibasilar opacities representing small pleural effusions with associated compressive atelectasis and/or consolidation. Venous Doppler Study 10/29/17 00:00 CONCLUSION: 1. The study is negative for lower extremity deep venous thrombosis. Procedures: 10/18: Intubation 10/20: Left IJ central line insertion. . Assessment and Plan - Disease Oriented Problem List (1) Weakness (2) Dyspnea (3) Pain (4) COPD (chronic obstructive pulmonary disease) (5) Insomnia - Symptom Scale (1) Dyspnea 0-10 Scale: 7 (2) Weakness 0-10 Scale: 6 (3) Pain 0-10 Scale: 5 Pertinent Non-Medical Issues: Psychosocial: He was born in the [facility] and initially moved to [place] 30 years ago, then subsequently moved to [place]. He has 2 sons and 2 daughters and is . 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 Ethical issues impacting care: None noted. . Important Contacts: Daughter: Cori Reynolds - (cell), [phone] # for [employer] dispatch, where his daughter works. . Prognosis: His prognosis is guarded. He is of advanced age with a long history of tobacco abuse, oxygen dependent COPD and pneumonia. He is profoundly weak and failing swallow evaluations, placing him at higher risk for aspiration. Per prior infectious disease note in 2013, he was diagnosed with latent TB. He is at risk for further respiratory complications, decline and readmissions. He also has atrial fibrillation/flutter with rapid ventricular response, placing him at higher risk for CVA. He does have a history of a TIA in the past. Anticoagulation would be difficult as he also had an episode of Hemoccult positive stools during this admission. No echocardiogram is available for this visit, but may facilitate further prognostication. He would be hospice appropriate if goals were consistent. . Code Status: Full Code Plan: PLAN: Legal decision maker: Patient is not capacitated at this time for unsupported decision-making. His daughter, Cori Reynolds, states she is the HCS and POA but that the paperwork is at her father's apartment. She is aware that without the documents, decision making would fall to the majority of his adult children. He has 2 sons and 2 daughters. Goals: To be determined CODE STATUS: FULL CODE by default, pending location of decision-maker. SYMPTOMS: * Dyspnea: He remains significantly dyspneic, likely multifactorial to include pneumonia, baseline COPD, cardiac arrhythmia and generalized weakness. Pulmonology is following and supporting with nebulizers, inhalers, steroids. While tolerating nasal cannula at 2 L and saturating adequately, he is visibly dyspneic. He is at elevated risk for recurrent intubation. Daughter has been located, who states she is the power of commonwealth attorney and medical decision maker. She is in discussion with the patient regarding medical decisions in accordance with his wishes. * Weakness: He has generalized weakness and debility likely secondary to chronic disease, sedentary behavior and poor self-care. Physical therapy is following, however patient is not showing significant progress and may not be a good rehabilitation candidate. Daughter is considering hospice. * Pain: He complains of genital pain. He is having regular bowel movements and does have oxycodone available as needed for pain. He has taken 1 dose of 2.5 mg oxycodone today with good results. Palliative care will continue to follow the patient during hospital course as condition evolves, to assist patient/decision-maker with understanding of their medical conditions, weighing benefits/burdens of treatment options, for clarification of goals of treatment. Additionally will assist with any symptoms of palliative concern. .
[2017-10-30] MEDS ORDERED: Metoprolol Inj 5 MG/5 ML Vial IV.PUSH ONE (16:25)
--- NOTE | 2017-10-30 18:45 | P.PNPL ---
Subjective Interval history: 67 YO male with RF, COPD exac Weaned to NC very weak, sob no fever Palliative care following Physical Exam Vital signs: Vital Signs 10/29/17 19:00 10/29/17 19:15 10/29/17 20:00 Temperature Pulse Rate 156 H 124 H 116 H Respiratory Rate 26 H 23 Blood Pressure 129/69 Pulse Oximetry 100 100 10/29/17 20:13 10/29/17 21:00 10/29/17 21:30 Temperature Pulse Rate 140 H 114 H Respiratory Rate 25 H 21 Blood Pressure 134/65 149/67 H Pulse Oximetry 100 100 91 L 10/29/17 22:13 10/29/17 22:55 10/29/17 23:13 Temperature Pulse Rate 114 H 114 H 114 H Respiratory Rate 25 H 23 24 Blood Pressure 138/64 131/65 Pulse Oximetry 94 L 92 L 10/30/17 00:00 10/30/17 01:00 10/30/17 01:13 Temperature 97.3 F L Pulse Rate 102 H 112 H Respiratory Rate 26 H 21 Blood Pressure 145/64 H 109/63 Pulse Oximetry 97 96 84 L 10/30/17 02:13 10/30/17 03:00 10/30/17 04:00 Temperature 98.2 F Pulse Rate 112 H 112 H 116 H Respiratory Rate 21 22 19 Blood Pressure 119/55 L 129/56 L 112/70 Pulse Oximetry 96 96 95 10/30/17 05:13 10/30/17 06:13 10/30/17 07:00 Temperature Pulse Rate 114 H 118 H Respiratory Rate 21 21 Blood Pressure 111/55 L 111/61 Pulse Oximetry 97 97 95 10/30/17 07:13 10/30/17 07:37 10/30/17 07:38 Temperature Pulse Rate 122 H 118 H Respiratory Rate 20 18 Blood Pressure 129/58 L Pulse Oximetry 97 95 10/30/17 08:00 10/30/17 08:14 10/30/17 09:14 Temperature Pulse Rate 129 H 120 H 122 H Respiratory Rate 20 22 Blood Pressure 125/49 L 146/64 H Pulse Oximetry 96 96 10/30/17 10:14 10/30/17 10:56 10/30/17 11:10 Temperature Pulse Rate 100 H 119 H Respiratory Rate 21 17 Blood Pressure 130/73 Pulse Oximetry 100 99 10/30/17 11:14 10/30/17 12:14 10/30/17 13:14 Temperature Pulse Rate 110 H 116 H 112 H Respiratory Rate 27 H 25 H 23 Blood Pressure 145/66 H 137/65 136/67 Pulse Oximetry 99 98 99 10/30/17 14:36 10/30/17 15:16 10/30/17 15:35 Temperature Pulse Rate 120 H 122 H 123 H Respiratory Rate 27 H 26 H 25 H Blood Pressure 120/55 L 157/61 H Pulse Oximetry 98 98 10/30/17 15:36 10/30/17 16:00 10/30/17 16:16 Temperature Pulse Rate 126 H 132 H 130 H Respiratory Rate 0 L 24 23 Blood Pressure 155/72 H 151/73 H Pulse Oximetry 100 100 99 10/30/17 17:06 10/30/17 17:30 Temperature Pulse Rate 120 H 122 H Respiratory Rate 38 H 21 Blood Pressure 154/66 H 158/66 H Pulse Oximetry 99 98 Intake & Output 10/29/17 10/30/17 10/30/17 18:59 06:59 18:59 Intake Total 1735 / 1735 3104 / 3104 Output Total 300 / 300 Balance 1735 / 1735 2804 / 2804 Weight 67.8 kg Intake: Oral 0 / 0 Tube Feeding 515 / 515 515 / 515 Tube Irrigant 60 / 60 Water Bolus Amount 1220 / 1220 1220 / 1220 Other 1309 / 1309 Output: Urine 300 / 300 Other: Post Void Residual 50 # Voids 4 # Incontinent Voids 4 4 Date of Last Bowel Movement 10/29/17 10/30/17 10/30/17 # Bowel Movements 2 # Incontinent Bowel Movements 2 3 GENERAL: Frail elderly male, mild sob, weak SKIN: Warm and dry. HEAD: Normocephalic. EYES: No scleral icterus. No injection or drainage. NECK: Supple, trachea midline. No JVD or lymphadenopathy. CARDIOVASCULAR: Regular rate and rhythm without murmurs, gallops, or rubs. RESPIRATORY: Breath sounds equal bilaterally. No accessory muscle use. GASTROINTESTINAL: Abdomen soft, non-tender, nondistended. MUSCULOSKELETAL: No cyanosis, or edema. BACK: Nontender without obvious deformity. No CVA tenderness. - Urinary Catheter Management Indwelling Urethral Catheter Cath placed during this visit: yes, but has since been removed by the nurse Reason for continuing: Acute urinary retention Insertion date: 10/18/17 Insertion time: 00:15 Removal date: 10/27/17 Removal time: 12:00 Assessment and Plan - Plan IMPRESSION: 1. Respiratory failure, status post extubation. 2. Chronic obstructive pulmonary disease. 3. Atrial fibrillation. 4. History of transient ischemic attack. 5. Hyperglycemia. PLAN: BIPAP at night and prn Titeate 02 to keep sat 88-92 % Tube feeding IV Solumedrol monitor BS SQ Lovenox Palliative care following
[2017-10-30] MEDS: Montelukast 10 MG Tablet PO SCH (18:49)
[2017-10-30] MEDS: Enoxaparin Inj 30 MG/0.3 ML Syringe SQ SCH (18:51)
[2017-10-30] MEDS: Mirtazapine 15 MG Tablet NG/OG SCH (22:01)
[2017-10-30] MEDS: Insulin Detemir Inj 1,000 UNIT/10 ML Vial SQ SCH (22:10)
[2017-10-31] MEDS: Insulin NovoLOG Aspart Correctional Sugar Inj SQ SCH ×4 (00:43→17:18)
[2017-10-31] MEDS: Pantoprazole Inj 40 MG Vial IV.PUSH SCH ×2 (06:20→22:10)
[2017-10-31] MEDS: Amiodarone 200 MG Tablet PO SCH (09:13)
[2017-10-31] MEDS: MethylPREDNISolone Sod Succinate Inj 40 MG/ML Vial IV.PUSH SCH ×2 (09:13→22:04)
[2017-10-31] MEDS: Finasteride 5 MG Tablet PO SCH (09:14)
[2017-10-31] MEDS: Metoprolol Tartrate 50 MG Tablet PO SCH ×3 (09:14→17:18)
[2017-10-31] MEDS: Senna/Docusate Sodium 8.6/50 MG Tablet PO SCH ×2 (10:11→22:10)
--- NOTE | 2017-10-31 12:14 | P.PNIM ---
Subjective Interval history: The pt's daughter's were at the bedside. The pt wanted to try to eat something. He was confused about his code status. They were planning on speaking with hospice later today. Discussed with nursing. Physical Exam Vital signs: Vital Signs 10/30/17 12:14 10/30/17 13:14 10/30/17 14:36 Temperature Pulse Rate 116 H 112 H 120 H Respiratory Rate 25 H 23 27 H Blood Pressure 137/65 136/67 120/55 L Pulse Oximetry 98 99 98 10/30/17 15:16 10/30/17 15:35 10/30/17 15:36 Temperature Pulse Rate 122 H 123 H 126 H Respiratory Rate 26 H 25 H 0 L Blood Pressure 157/61 H 155/72 H Pulse Oximetry 98 100 10/30/17 16:00 10/30/17 16:16 10/30/17 17:06 Temperature Pulse Rate 132 H 130 H 120 H Respiratory Rate 24 23 38 H Blood Pressure 151/73 H 154/66 H Pulse Oximetry 100 99 99 10/30/17 17:30 10/30/17 18:00 10/30/17 18:30 Temperature Pulse Rate 122 H 126 H 130 H Respiratory Rate 21 22 21 Blood Pressure 158/66 H 165/68 H 154/66 H Pulse Oximetry 98 97 99 10/30/17 19:05 10/30/17 20:00 10/30/17 20:30 Temperature 98.6 F Pulse Rate 120 H 110 H 110 H Respiratory Rate 24 23 22 Blood Pressure 115/58 L 125/54 L Pulse Oximetry 99 97 92 L 10/30/17 21:30 10/30/17 22:00 10/30/17 22:30 Temperature Pulse Rate 112 H 116 H 126 H Respiratory Rate 23 22 30 H Blood Pressure 109/67 118/50 L 140/70 Pulse Oximetry 95 93 L 95 10/30/17 22:45 10/30/17 23:00 10/30/17 23:15 Temperature Pulse Rate 125 H 126 H Respiratory Rate 27 H 24 Blood Pressure Pulse Oximetry 100 95 10/30/17 23:30 10/31/17 00:00 10/31/17 01:00 Temperature 98 F Pulse Rate 120 H 124 H 126 H Respiratory Rate 23 22 24 Blood Pressure 136/56 L 141/61 H 157/78 H Pulse Oximetry 92 L 95 92 L 10/31/17 02:00 10/31/17 02:20 10/31/17 03:00 Temperature Pulse Rate 124 H 111 H Respiratory Rate 20 23 Blood Pressure 125/55 L 132/48 L Pulse Oximetry 97 95 94 L 10/31/17 03:55 10/31/17 04:00 10/31/17 04:45 Temperature 98 F Pulse Rate 122 H 128 H Respiratory Rate 26 H 20 Blood Pressure 153/72 H Pulse Oximetry 93 L 95 10/31/17 05:00 10/31/17 06:00 10/31/17 07:00 Temperature Pulse Rate 126 H 130 H 124 H Respiratory Rate 24 26 H 19 Blood Pressure 139/70 151/72 H 119/61 Pulse Oximetry 95 96 93 L 10/31/17 07:33 10/31/17 07:41 10/31/17 08:00 Temperature 98.8 F Pulse Rate 166 H 160 H Respiratory Rate 19 18 Blood Pressure 116/70 107/63 Pulse Oximetry 92 L 98 98 10/31/17 09:00 10/31/17 09:29 10/31/17 09:47 Temperature Pulse Rate 82 80 Respiratory Rate 15 16 Blood Pressure 122/61 Pulse Oximetry 100 10/31/17 10:00 Temperature Pulse Rate 84 Respiratory Rate 22 Blood Pressure 141/67 H Pulse Oximetry 100 Intake & Output 10/30/17 10/31/17 10/31/17 18:59 06:59 18:59 Intake Total 1781 / 1781 400 / 400 Balance 1781 / 1781 400 / 400 Weight 67.8 kg Intake: Tube Feeding 581 / 581 100 / 100 Water Bolus Amount 1200 / 1200 300 / 300 Other: # Incontinent Voids 4 3 # Urine Diapers 4 3 Date of Last Bowel Movement 10/30/17 10/31/17 10/31/17 # Bowel Movements 1 1 # Incontinent Bowel Movements 1 1 Narrative: GENERAL: Alert, NAD. NG tube in place. SKIN: Warm and dry. HEAD: Normocephalic. EYES: No scleral icterus. No injection or drainage. NECK: Supple, trachea midline. No JVD or lymphadenopathy. CARDIOVASCULAR: Irreg Irreg, tachycardic without murmurs, gallops, or rubs. RESPIRATORY: Breath sounds equal bilaterally. No accessory muscle use. GASTROINTESTINAL: Abdomen soft, non-tender, nondistended. MUSCULOSKELETAL: No cyanosis. RLE 2+ edema and LLE 1+ edema. BACK: Nontender without obvious deformity. No CVA tenderness. - Urinary Catheter Management Indwelling Urethral Catheter Cath placed during this visit: yes, but has since been removed by the nurse Reason for continuing: Acute urinary retention Insertion date: 10/18/17 Insertion time: 00:15 Removal date: 10/27/17 Removal time: 12:00 Results - Labs CBC & Chem 7: 10/30/17 05:00 10/30/17 05:00 Laboratory Results - last 24 hr 10/30/17 10/30/17 10/31/17 12:31 17:59 00:37 POC Glucose 294 H 230 H 145 H 10/31/17 10/31/17 06:27 12:01 POC Glucose 204 H 94 Assessment and Plan - Plan Mr. Moore is a 67 year old male with a history of asthma, COPD, atrial fibrillation, hyperlipidemia, TIA and hypertension who was admitted to the hospital due to shortness of breath on 10/18/2017. He typically uses 2 L of oxygen at home due to COPD. In the ER his ABG was pH 7.22 PCO2 98 and PO2 96 on 2 L nasal cannula. Chest x-ray showed left lower lobe pneumonia. Patient was emergently intubated due to shortness of breath with hypercapnic respiratory failure. Patient was started on IV Solu-Medrol as well as Rocephin and azithromycin. He received IV fluids due to hypotension. Also received IV insulin, D50 as well as Kayexalate and bicarb for hyperkalemia. He was extubated on 10/23/2017. After extubation, patient was continued to be managed by critical care. He required BiPAP. Precedex was weaned off. His care was transferred to hospitalist service on 10/29/2017. Acute hypercapnic respiratory failure Left lower lobe pneumonia COPD - Using BiPAP at night. Currently on NC. - O2 to keep O2 sat > 88%. - Continue DuoNeb, Solu-medrol 40mg IV Q12hrs. Continue to wean off steroids. - Patient finished course of antibiotics. -palliative care consult appreciated. Family considering hospice. Hospice consult pending. Atrial fibrillation Hypertension - Currently on Metoprolol 50mg Q8h. - Currently on Amiodarone 100mg Qday. - Currently normotensive. IF needed, consider Amlodipine for BP instead of scheduled clonidine. Diabetes mellitus -sliding scale insulin. -Levemir 12 units QHS. Improved. Acute kidney injury - Creatinine continues to improve. 2.0 --> 1.40. Right lower ext edema US negative for DVT. -keep leg elevated. Hemoccult positive Hemoglobin has been stable. -follow CBC and consult GI if hemoglobin starts to decline. -continue PPI BID. PPx: Lovenox.
[2017-10-31] MEDS ORDERED: Metoprolol Inj 5 MG/5 ML Vial IV.PUSH PRN (16:08)
[2017-10-31] MEDS: Morphine Sulfate Inj 2 MG/ML Vial IV.PUSH PRN (17:16)
[2017-10-31] MEDS: Enoxaparin Inj 30 MG/0.3 ML Syringe SQ SCH (17:18)
[2017-10-31] MEDS: Montelukast 10 MG Tablet PO SCH (17:18)
[2017-10-31] MEDS: Insulin Detemir Inj 1,000 UNIT/10 ML Vial SQ SCH (22:04)
[2017-10-31] MEDS: Mirtazapine 15 MG Tablet NG/OG SCH (22:09)
[2017-11-01] MEDS: Morphine Sulfate Inj 2 MG/ML Vial IV.PUSH PRN (02:05)
[2017-11-01] MEDS: Insulin NovoLOG Aspart Correctional Sugar Inj SQ SCH ×3 (02:05→14:30)
[2017-11-01] MEDS ORDERED: Metoprolol Tartrate 50 MG Tablet PO ONE (02:57)
[2017-11-01] MEDS: Pantoprazole Inj 40 MG Vial IV.PUSH SCH (06:02)
[2017-11-01 06:13] LABS: Hematocrit 22.4 % (39.0-51.0); Hemoglobin 7.5 gm/dL (13.0-17.0); Mean Corpuscular HGB Conc 33.6 % (32.0-36.0); Mean Corpuscular Hemoglobin 29.5 pg (27.0-34.0); Mean Corpuscular Volume 87.8 fL (80.0-100.0); Mean Platelet Volume 9.2 fL (7.0-11.0); Platelet Count 151 th/mm3 (150-450); Red Blood Count 2.55 mil/mm3 (4.50-5.90); Red Cell Distribution Width 16.9 % (11.6-17.2); White Blood Count 24.1 th/mm3 (4.0-11.0)
[2017-11-01 07:01] LABS: Calcium 8.1 mg/dL (8.5-10.1); Carbon Dioxide 36.4 meq/L (21.0-32.0); Magnesium 2.2 mg/dL (1.5-2.5); Potassium 5.5 meq/L (3.5-5.1)
[2017-11-01] MEDS: Metoprolol Tartrate 50 MG Tablet PO SCH ×2 (09:12→14:31)
[2017-11-01] MEDS: Senna/Docusate Sodium 8.6/50 MG Tablet PO SCH (09:12)
[2017-11-01] MEDS: Amiodarone 200 MG Tablet PO SCH (09:13)
[2017-11-01] MEDS: MethylPREDNISolone Sod Succinate Inj 40 MG/ML Vial IV.PUSH SCH (09:13)
[2017-11-01] MEDS: Finasteride 5 MG Tablet PO SCH (09:13)
[2017-11-01 10:56] VITALS: O2SAT 100
[2017-11-01 11:29] VITALS: PULSE 80; TEMP 98.7
--- NOTE | 2017-11-01 12:14 | P.DS ---
Date of admission: 10/18/17 22:38 Primary care physician: UNKNOWN Anticipated date of discharge: 11/01/17 Brief History from admission: Patient is a 67-year-old [place] male with history of asthma, COPD, atrial fibrillation, hyperlipidemia, TIA 2010, hypertension who presented to the [place] emergency department with complaints of shortness of breath. He has COPD , and uses 2L oxygen at home. Increasing complaints of shortness of breath over the last few days, in the ED he was severely short of breath and unable to provide any significant history. EMS administered 125mg of solumedrol IV and gave neb treatment prior to arrival to the ER. ER workup showed ABG with pH 7.22 PCO2 98 and PO2 96 on 2 L nasal cannula. Chest x-ray showed left lower lobe pneumonia. Patient was emergently intubated due to severe shortness of breath hypercapnic respiratory failure, I see him still severely short of breath after 3 DuoNeb breathing treatments and IV Solu-Medrol.. Started on scheduled IV Solu-Medrol and antibiotics with Rocephin and azithromycin. I evaluated the patient in the [place] emergency department. He is intubated sedated. He is hypotensive with a map 58-60, urine output 150 mL over the last 5 hours. Creatinine has increased from 1.1-1.9. I have ordered 2 L normal saline bolus. Oxygenation and hypercapnia has improved post intubation, but patient remains critically ill DS: Diagnosis - Discharge Diagnosis (1) Dyspnea Status: Acute (2) Weakness Status: Acute (3) COPD (chronic obstructive pulmonary disease) Status: Acute DS: Summary Hospital Course: Respiratory failure Mr. Moore is a 67 year old male with a history of asthma, COPD, atrial fibrillation, hyperlipidemia, TIA and hypertension who was admitted to the hospital due to shortness of breath on 10/18/2017. He typically uses 2 L of oxygen at home due to COPD. In the ER his ABG was pH 7.22 PCO2 98 and PO2 96 on 2 L nasal cannula. Chest x-ray showed left lower lobe pneumonia. Patient was emergently intubated due to shortness of breath with hypercapnic respiratory failure. Patient was started on IV Solu-Medrol as well as Rocephin and azithromycin. He received IV fluids due to hypotension. Also received IV insulin, D50 as well as Kayexalate and bicarb for hyperkalemia. His creatinine improved. He was extubated on 10/23/2017. After extubation the patient was continued to be managed by critical care. He required BiPAP at times. Precedex was weaned off. His care was transferred to hospitalist service on 10/29. Pulmonology was consulted. He was using BiPAP at night. Currently on NC. We continued DuoNebs, Solu-medrol and he completed a course of antibiotics. He was dependant of tube feeds via an NGT for nutrition. He was found to be Hemoccult positive. Palliative care was consulted. Family was located and interested in talking with hospice in light of the patient's weakness, dyspnea, and inability to eat. Hospice was then consulted and family agreed for discharge to the care center. Atrial fibrillation Metoprolol was increased to 50mg Q8h. He was continued on Amiodarone 100mg Qday. Diabetes mellitus He was placed on sliding scale insulin along with Levemir 12 units QHS. - Time Spent with Patient Total time spent providing and/or coordinating discharge services: Greater than 30 minutes - Quality: VTE Deep Vein Thrombosis/Pulmonary Embolism Present on Admission: No Exam Vital signs: Vital Signs 10/31/17 13:00 10/31/17 14:00 10/31/17 15:00 Temperature Pulse Rate 112 H 96 H 124 H Respiratory Rate 21 21 25 H Blood Pressure 143/59 H 123/53 L 122/71 Pulse Oximetry 100 99 97 10/31/17 15:15 10/31/17 15:29 10/31/17 16:00 Temperature Pulse Rate 116 H 140 H Respiratory Rate 24 26 H Blood Pressure 124/72 Pulse Oximetry 99 96 95 10/31/17 16:15 10/31/17 17:00 10/31/17 17:27 Temperature Pulse Rate 134 H Respiratory Rate 32 H Blood Pressure 169/82 H Pulse Oximetry 96 99 96 10/31/17 18:00 10/31/17 18:32 10/31/17 19:00 Temperature Pulse Rate 100 H 94 H 92 H Respiratory Rate 30 H 28 H 21 Blood Pressure 132/62 127/62 Pulse Oximetry 94 L 97 92 L 10/31/17 19:14 10/31/17 19:24 10/31/17 20:00 Temperature 98.4 F Pulse Rate 100 H 90 94 H Respiratory Rate 20 21 20 Blood Pressure 140/68 Pulse Oximetry 100 100 100 10/31/17 22:00 10/31/17 23:14 10/31/17 23:24 Temperature Pulse Rate 111 H 106 H 112 H Respiratory Rate 24 20 20 Blood Pressure 118/61 158/55 H Pulse Oximetry 91 L 100 10/31/17 23:54 11/01/17 00:00 11/01/17 01:00 Temperature 98.5 F Pulse Rate 117 H 116 H 160 H Respiratory Rate 21 21 27 H Blood Pressure 87/50 L 130/58 L 146/81 H Pulse Oximetry 100 97 11/01/17 02:00 11/01/17 02:30 11/01/17 02:49 Temperature Pulse Rate 136 H 140 H Respiratory Rate 20 20 Blood Pressure 126/70 130/80 Pulse Oximetry 96 91 L 91 L 11/01/17 03:00 11/01/17 04:00 11/01/17 04:18 Temperature 98.8 F Pulse Rate 132 H 98 H 101 H Respiratory Rate 25 H 24 22 Blood Pressure 121/72 101/56 L Pulse Oximetry 90 L 95 11/01/17 05:00 11/01/17 06:00 11/01/17 07:00 Temperature 98.7 F Pulse Rate 102 H 104 H 92 H Respiratory Rate 24 26 H 24 Blood Pressure 115/54 L 113/55 L 109/57 L Pulse Oximetry 93 L 96 97 11/01/17 08:00 11/01/17 08:11 11/01/17 09:00 Temperature Pulse Rate 98 H 107 H 108 H Respiratory Rate 23 22 24 Blood Pressure 115/54 L 127/54 L Pulse Oximetry 99 98 11/01/17 10:00 11/01/17 10:07 11/01/17 10:55 Temperature Pulse Rate 80 Respiratory Rate 21 Blood Pressure 132/66 Pulse Oximetry 100 98 100 Intake & Output 10/31/17 11/01/17 11/01/17 18:59 06:59 18:59 Intake Total 700 / 700 Balance 700 / 700 Weight 68.5 kg Intake: Tube Feeding 400 / 400 Water Bolus Amount 300 / 300 Other: # Voids 4 3 Date of Last Bowel Movement 10/31/17 10/31/17 # Bowel Movements 0 Narrative: GENERAL: NAD. NG tube in place. SKIN: Warm and dry. HEAD: Normocephalic. EYES: No scleral icterus. No injection or drainage. NECK: Supple, trachea midline. No JVD or lymphadenopathy. CARDIOVASCULAR: Irreg Irreg, tachycardic without murmurs, gallops, or rubs. RESPIRATORY: Breath sounds equal bilaterally. No accessory muscle use. GASTROINTESTINAL: Abdomen soft, non-tender, nondistended. MUSCULOSKELETAL: No cyanosis. RLE 2+ edema and LLE 1+ edema. BACK: Nontender without obvious deformity. No CVA tenderness. Results Procedures completed during hospitalization: See hospital course Labs on day of discharge: Labs from last 24 hours 11/01/17 11/01/17 11/01/17 05:33 05:33 00:39 WBC 24.1 H RBC 2.55 L Hgb 7.5 L Hct 22.4 L MCV 87.8 MCH 29.5 MCHC 33.6 RDW 16.9 Plt Count 151 MPV 9.2 Sodium 144 Potassium 5.5 H Chloride 103 Carbon Dioxide 36.4 H Anion Gap 5 BUN 60 H Creatinine 1.30 Estimated GFR 55 L POC Glucose 130 H Random Glucose 198 H Calcium 8.1 L Magnesium 2.2 10/31/17 17:03 WBC RBC Hgb Hct MCV MCH MCHC RDW Plt Count MPV Sodium Potassium Chloride Carbon Dioxide Anion Gap BUN Creatinine Estimated GFR POC Glucose 204 H Random Glucose Calcium Magnesium - Impressions ITS Impressions Head CT 10/24/17 00:00 CONCLUSION: Unremarkable study except for chronic sinusitis. Abdomen/Bladder Ultrasound 10/25/17 00:00 CONCLUSION: 1. Left renal cyst, simple in appearance. 2. Trace amount of free fluid in the pelvis. Chest X-Ray 10/27/17 00:00 CONCLUSION: Stable chest x-ray with bibasilar opacities representing small pleural effusions with associated compressive atelectasis and/or consolidation. Venous Doppler Study 10/29/17 00:00 CONCLUSION: 1. The study is negative for lower extremity deep venous thrombosis. Discharge Plan - Discharge Disposition Patient Disposition: [facility] Hospice[facility] Facility - Discharge Condition Condition: Serious - Discharge Order Discharge Orders: Discharge Order (Routine); Ordered 11/01/17 Ordered By: Bebeto Shabazz - Discharge Details Anticipated Discharge Date: 11/01/17 - Physicians Team Primary Care Provider: UNKNOWN, Attending Provider: Bebeto Shabazz Other Providers: Niki East MD ; Gaurav Lepe MD ; Devyn Castro MD
[2017-11-01 13:25] VITALS: BP 151/63; RESP 25
== END 2017-11-01 13:25 | disposition hospice, inpatient (51) ==
LOC: PHED 20:20 → PHICU 22:38
PROVIDERS: ADMIT Hospitalist; ATTEND Hospitalist